=== PATIENT | female | born 1945 | race Caucasian/White ===

== ENCOUNTER 2021-06-01 09:05 | Outpatient (REF) | payer MEDICARE, OTHER, SELFPAY ==
[2021-06-01 09:43] LABS: MANUAL DIFF FLAG NO
[2021-06-01 10:06] LABS: Basophils Percent Auto 0.8 % (0-2); Eosinophils Absolute Auto 0.1 X10*3/uL (0.0-0.4); Eosinophils Percent Auto 1.7 % (0-4); Hematocrit 42.3 % (37.0-47.0); Hemoglobin 14.4 g/dl (12.0-16.0); Imm Gran Abs Auto 0.03 X10*3/uL (0.00-0.03); Imm Gran Pct Auto 0.6 % (0.0-0.4); Lymphocytes Absolute Auto 1.4 X10*3/uL (1.2-4.9); Lymphocytes Percent Auto 27.2 % (20-40); Mean Corpuscular Hemoglobin 31.6 pg (27.0-33.0); Mean Platelet Volume 9.4 fL (9.4-12.3); Monocytes Absolute Auto 0.4 X10*3/uL (0.1-1.2); Monocytes Percent Auto 7.4 % (2-11); Neutrophils Absolute Auto 3.3 x10*3/uL (2.0-8.3); Neutrophils Percent Auto 62.3 % (45-73); Platelet Count 222 X10*3/uL (160-400); Red Blood Count 4.55 X10*6/uL (4.20-5.50); Red Cell Distribution Width 12.5 % (11.0-16.0); White Blood Count 5.3 X10*3/uL (4.8-10.8)
[2021-06-01 10:37] LABS: Estimated Average Glucose 100 mg/dL; Hemoglobin A1c % 5.1 %
[2021-06-01 10:57] LABS: Alanine Aminotransferase 20 U/L (0-31); Albumin Level 4.2 g/dL (3.5-5.0); Alkaline Phosphatase 55 U/L (39-117); Anion Gap 13 (12-20); Aspartate Amino Transferase 23 U/L (5-31); Bilirubin Total 0.7 mg/dL (0.0-1.0); Blood Urea Nitrogen 13 mg/dL (9-16); Calcium 9.4 mg/dL (8.4-10.2); Carbon Dioxide 28 mmol/L (22-29); Chloride 103 mmol/L (96-108); Cholesterol 245 mg/dL; Estimated Glomerular Filt Rate > 60; Glucose Fasting 106 mg/dL (60-99); HDL Cholesterol 75 mg/dL; LDL Cholesterol Calculated 157 mg/dl; Potassium 3.9 mmol/L (3.3-5.1); Sodium 140 mmol/L (135-145); Total Protein 6.3 g/dL (6.5-8.0); Triglycerides 68 mg/dL
[2021-06-01 11:02] LABS: Thyroid Stimulating Hormone 3.09 uIU/mL (0.32-4.0); Vitamin D 25-OH Total 36.3 ng/mL (>30)
[2021-06-01 11:06] LABS: Appearance Urine HAZY; Color Urine YELLOW; Glucose Urine UA NEG (NEG); Leukocyte Esterase Urine 1+ (NEG); Nitrite Urine NEG (NEG); Specific Gravity - Urine 1.025 (1.005-1.025); Urine Blood NEG (NEG); Urine Ketones NEG (NEG); Urine Protein NEG (NEG-TRACE)
[2021-06-01 11:22] LABS: Bacteria Urine 1+ /LPF; Mucus Urine 2+ /LPF; RBC Urine 0-2 /HPF (0); Squamous Epithelial Cell Urine 2+ /LPF
[2021-06-01 11:23] LABS: Calcium Oxalate Crystals Urine TRACE /LPF
== END 2021-06-01 09:06 | disposition home or self-care (01) ==
LOC: HO.LAB 09:05
PROVIDERS: PCP Internal Medicine; Visit Provider Internal Medicine
DX: E78.00 Pure hypercholesterolemia, unspecified (principal); F51.04 Psychophysiologic insomnia; F41.9 Anxiety disorder, unspecified
CPT/HCPCS: 36415; 80053; 80061; 81001; 81003; 82306; 83036; 84443; 85025

== ENCOUNTER 2021-08-25 11:39 | Outpatient (REF) | payer MEDICARE, OTHER, SELFPAY ==
[2021-08-25 13:57] LABS: Amylase 42 U/L (28-100); Lipase 43 U/L (8-78)
[2021-08-29 08:56] LABS: Carbohydrate Antigen 19-9 4 U/mL (<34)
== END 2021-08-25 11:40 | disposition home or self-care (01) ==
LOC: HO.LAB 11:39
PROVIDERS: PCP Internal Medicine; Visit Provider Internal Medicine
DX: D49.0 Neoplasm of unspecified behavior of digestive system (principal)
CPT/HCPCS: 36415; 82150; 83690; 86301

== ENCOUNTER 2021-08-28 07:24 | Day surgery (SDC) | payer MEDICARE, OTHER, SELFPAY ==
[2021-08-22 13:55] VITALS: BMI 20.5
--- NOTE | 2021-08-25 09:37 | P.CONAN_ITS ---
Documented by User: Mouna Muniz NP 08/25/21 09:38 HPI - Anesthesia Eval Consult details Narrative: 76yo F for Upper Endoscopy and Colonoscopy FOR[facility]LY [facility] Past Medical History Medical History (Updated 08/22/21 @ 13:48 by Tawny Meade, [place]) Anxiety C. difficile enteritis Elevated cholesterol GERD (gastroesophageal reflux disease) Hiatal hernia Sigmoid diverticulitis Surgical History Surgical History (Updated 08/22/21 @ 13:51 by Tawny Meade RN) H/O colonoscopy History of back surgery History of esophagogastroduodenoscopy (EGD) History of tonsillectomy and adenoidectomy Hx of appendectomy Hx of tubal ligation Social History Social History (Updated 08/22/21 @ 13:54 by Tawny Meade RN) Patient Tobacco Use Status: Former Tobacco user Use of substances other than those prescribed or required for medical reasons: Yes Substance Use Frequency: Daily Are you DNR?: No Advance Directives: No Advance Directives Information Provided: Yes Meds Allergies Allergy/AdvReac Type Severity Reaction Status Date / Time Penicillins Allergy Intermediate HIVES Verified 08/22/21 13:49 Home Medications Medication Instructions Recorded Confirmed Last Taken Type cetirizine 10 mg tablet (Zyrtec) 10 mg PO DAILY 08/22/21 08/22/21 Unknown History citalopram 20 mg tablet 1 tab PO DAILY 08/22/21 08/22/21 08/28/21 History omeprazole 20 mg capsule,delayed 1 cap PO DAILY 08/22/21 08/22/21 Unknown History release Exam Exam Date and Time: August 25, 2021 0937 Height,Weight and Vital Signs: Height 5 ft 4 in Weight 54.34 kg Pertinent Lab Results Pertinent Lab Results: Laboratory Tests 06/01/21 06/01/21 09:35 09:35 WBC 5.3 Hgb 14.4 Hct 42.3 Plt Count 222 Sodium 140 Potassium 3.9 Chloride 103 Carbon Dioxide 28 BUN 13 Creatinine 0.74 Assessment and Plan Assessment Anesthesia Assessment: Chart Reviewed Documented by User: Christopher Heath MD 08/28/21 16:53 PMFSH Past Medical History Medical History (Updated 08/22/21 @ 13:48 by Tawny Meade RN) Anxiety C. difficile enteritis Elevated cholesterol GERD (gastroesophageal reflux disease) Hiatal hernia Sigmoid diverticulitis Family History Family history of problems with anesthesia: No Surgical History Surgical History (Updated 08/22/21 @ 13:51 by Tawny Meade RN) H/O colonoscopy History of back surgery History of esophagogastroduodenoscopy (EGD) History of tonsillectomy and adenoidectomy Hx of appendectomy Hx of tubal ligation History of Problems with Anesthesia: Yes (PONV) Social History Social History (Updated 08/22/21 @ 13:54 by Tawny Meade RN) Patient Tobacco Use Status: Former Tobacco user Use of substances other than those prescribed or required for medical reasons: Yes Substance Use Frequency: Daily Are you DNR?: No Advance Directives: No Advance Directives Information Provided: Yes Meds Allergies Allergy/AdvReac Type Severity Reaction Status Date / Time Penicillins Allergy Intermediate HIVES Verified 08/22/21 13:49 Home Medications Medication Instructions Recorded Confirmed Last Taken Type cetirizine 10 mg tablet (Zyrtec) 10 mg PO DAILY 08/22/21 08/22/21 Unknown History citalopram 20 mg tablet 1 tab PO DAILY 08/22/21 08/22/21 08/28/21 History omeprazole 20 mg capsule,delayed 1 cap PO DAILY 08/22/21 08/22/21 Unknown History release Exam Airway Mallampati Class: II TM Dist: >3cm Neck ROM: Full Loose/Missing/Broken Teeth: Yes (Fillings ) Heart: S1,S2 Lungs: b/l breath sounds Assessment and Plan Assessment Anesthesia Assessment: Anesthesia Plan Discussed Final Anesthetic Review Family History of Problems with Anesthesia: No History of Problems with Anesthesia: Yes (PONV) NPO: Yes ASA Class: II Final Preanesthetic Review: Meds/Allgs Chart Reviewed, Consent Obtained/Reviewed and Anes Risks/Benef Reviewed Patient Risk: Intermediate Procedure Risk: Intermediate Anesthetic Plan Anesthetic Plan: MAC: Disposition: Standard PACU
[2021-08-28 07:44] VITALS: BP 112/57; PULSE 60; RESP 16; TEMP 37.1; O2SAT 98
[2021-08-28] MEDS: Lactated Ringers 1,000 ML 100 ML IVCONT (08:08)
[2021-08-28 09:40] VITALS: BP 92/41; PULSE 62; RESP 16; TEMP 36.6; O2SAT 97
--- NOTE | 2021-08-28 09:45 | P.BOP_ITS ---
Brief Operative Note Date of Service: 08/28/21 Pre-op diagnosis: GERD, Screening Post-op diagnosis: other (Hiatal hernia, Polyps) Procedure: EGD with biopsies, Colonoscopy to the cecum and TI with hot snare polypectomy x 2 and bx/removal of polyps. Surgeon: Dank Murray Anesthesia: MAC Was an Electric Track Switch Maintainer used for this Procedure?: No Estimated blood loss (mL): 2.0 Pathology: other (A. EG Junction at 38cm B. Cecal polyp C. Ascending colon polyp D. Transverse colon polyp E. Polyp at 50cm) Condition: stable Disposition: PACU
[2021-08-28 09:55] VITALS: BP 140/68; PULSE 60; RESP 16; TEMP 36.6; O2SAT 97
[2021-08-28 10:10] VITALS: BP 136/55; PULSE 56; RESP 16; TEMP 36.6; O2SAT 99
--- NOTE | 2021-08-28 20:43 | OP_ITS ---
SURGEON: Dank Murray MD INDICATIONS: The patient presents for evaluation of gastroesophageal reflux, family history of colon cancer, personal history of tubular adenoma of the colon, and colorectal cancer screening. Full consent was obtained from her for this, including risks of bleeding and perforation. PREOPERATIVE DIAGNOSIS: POSTOPERATIVE DIAGNOSIS: PROCEDURE PERFORMED: Esophagogastroduodenoscopy with biopsies, and colonoscopy to the cecum and terminal ileum with hot snare polypectomy and biopsy and removal of polyps. ESTIMATED BLOOD LOSS: COMPLICATIONS: ANESTHESIA: Monitored anesthesia care. ASSISTANTS: SPECIMENS: PREOPERATIVE DIAGNOSES: 1. Personal history of tubular adenomas of the colon. 2. Colorectal cancer screening. 3. Family history of colon cancer. 4. Gastroesophageal reflux. POSTOPERATIVE DIAGNOSES: 1. Personal history of tubular adenomas of the colon. 2. Colorectal cancer screening. 3. Family history of colon cancer. 4. Gastroesophageal reflux. 5. Small hiatal hernia. 6. Colon polyps. 7. Diverticulosis. 8. Internal hemorrhoids. DESCRIPTION OF PROCEDURE: The patient was placed in the left lateral decubitus position. The Olympus video gastroscope was passed in the posterior oropharynx and upper esophagus under direct vision. The scope was passed slowly to the distal esophagus. The gastroesophageal junction appeared at 38 cm. There was some very minimal irregularity, but no evidence of esophagitis nor any definitive evidence of Marr mucosa. The scope entered the stomach where there was a relatively minimal hiatal hernia. The scope was advanced to the pylorus and the duodenum was cannulated. The descending portion of the duodenum including the bulb appeared normal without mass or ulceration. The scope was withdrawn back in the stomach. The gastric antrum and body appeared normal with good peristalsis. Scope was retroflexed visualizing the proximal stomach carefully, which appeared normal, without any sign of mass or ulceration. The scope was straightened and withdrawn back to the esophagus. Biopsies were obtained at the EG junction at 38 cm. Proximal to this, the esophageal mucosa appeared normal. The scope was withdrawn from the patient. She was turned around for the colonoscopy. The digital rectal exam revealed no abnormalities. The Olympus pediatric video colonoscope was entered into the rectum and advanced to the cecum. Advancement to the cecum was somewhat difficult. Once in the cecum, I did identify cecal pouch with appendiceal orifice and a normal-appearing ileocecal valve. The terminal ileum was cannulated and appeared normal. Scope was withdrawn back in the colon. The entire cecum was well visualized. In the cecum was approximately 8 mm polyp, which was removed by hot snare polypectomy, recovered by suction. The polypectomy site appeared clean, without any sign of residual polyp nor bleeding. The scope was then slowly withdrawn assessing all mucosal surfaces carefully. Preparation was excellent. In the ascending colon and transverse colon were flat, approximately 3 or 4 mm polyps, which were each biopsied and removed completely with cold biopsy forceps. At 50 cm was an approximately 8 mm polyp, which was removed by hot snare polypectomy and recovered by suction. The polypectomy site appeared clean, without any sign of residual polyp nor bleeding. I did not visualize any other polyps, colitis, or angiodysplasia. There was a moderate amount of diverticulosis in the sigmoid colon and a mild amount of diverticulosis in the descending and transverse colon. There was no sign of any colitis nor angiodysplasia. In the rectum, scope was retroflexed visualizing internal hemorrhoids, but no other pathology. The rectal mucosa appeared normal. Scope was straightened and withdrawn from the patient. She tolerated both procedures well and was returned to the recovery area in stable condition. IMPRESSION: 1. Minimal hiatal hernia, gastroesophageal reflux. 2. Colon polyps. 3. Diverticulosis. 4. Internal hemorrhoids. PLAN: The results of the pathology will be checked. I would recommend a repeat colonoscopy in 5 years. She was advised not to use any aspirin or NSAIDs for 1 week. She will continue her daily omeprazole for relief of her reflux. 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 She will otherwise see me on a p.r.n. basis. MD TAN Bauman/GRISEL / [id number] DAYSI
== END 2021-08-28 10:44 | disposition home or self-care (01) ==
PROVIDERS: PCP Internal Medicine; Visit Provider Internal Medicine
PROC: (CPT 45385; principal; 2021-08-28 08:30)
DX: Z12.11 Encounter for screening for malignant neoplasm of colon (principal); Z86.010 Personal history of colon polyps; Z80.0 Family history of malignant neoplasm of digestive organs; D12.0 Benign neoplasm of cecum; D12.2 Benign neoplasm of ascending colon; D12.3 Benign neoplasm of transverse colon; D12.5 Benign neoplasm of sigmoid colon; K57.30 Diverticulosis of large intestine without perforation or abscess without bleeding; K64.8 Other hemorrhoids; K21.9 Gastro-esophageal reflux disease without esophagitis; K44.9 Diaphragmatic hernia without obstruction or gangrene; D49.0 Neoplasm of unspecified behavior of digestive system; K86.2 Cyst of pancreas; F41.1 Generalized anxiety disorder; E78.5 Hyperlipidemia, unspecified; Z87.19 Personal history of other diseases of the digestive system; Z79.899 Other long term (current) drug therapy
CPT/HCPCS: 45385; 45380; 43239; 88305; J3010

== ENCOUNTER 2022-01-16 13:40 | Outpatient (REF) | payer MEDICARE, OTHER, SELFPAY ==
--- NOTE | ~2022-01-16 | XR_ITS ---
EXAMINATION: XR HIP, RIGHT CLINICAL INFORMATION: Right hip pain. COMPARISON: None TECHNIQUE: Two views of the right hip. FINDINGS: There is generalized osteopenia. Mild right hip degenerative joint changes are seen. There is no acute fracture or dislocation. The right hemipelvis is intact. The soft tissues are unremarkable. XR/XR hip RT min 2V IMPRESSION: Generalized osteopenia and mild right hip osteoarthritis. No acute abnormality.
== END 2022-01-16 13:41 | disposition home or self-care (01) ==
LOC: HO.XRAY 13:40
PROVIDERS: PCP Internal Medicine; Visit Provider Internal Medicine
DX: M25.551 Pain in right hip (principal)
CPT/HCPCS: 73502

== ENCOUNTER 2022-03-23 13:48 | Outpatient (REF) | payer MEDICARE, OTHER, SELFPAY ==
--- NOTE | ~2022-03-23 | XR_ITS ---
EXAMINATION: XR CHEST CLINICAL INFORMATION: Palpitations COMPARISON: None TECHNIQUE: 2 views of the chest were obtained. FINDINGS: No significant abnormality is noted involving the heart, lungs, mediastinum, bony thorax or soft tissues. XR/XR chest 2V IMPRESSION: Unremarkable chest examination.
--- NOTE | 2022-03-23 13:55 | ECG_ITS ---
Test Reason : R00.2 Blood Pressure : / mmHG Vent. Rate : 065 BPM Atrial Rate : 065 BPM P-R Int : 198 ms QRS Dur : 070 ms QT Int : 418 ms P-R-T Axes : 060 -11 070 degrees QTc Int : 434 ms Normal sinus rhythm Normal ECG When compared with ECG of 23-MAR-2006 08:23, No significant changes seen Referred By: Dank Brown Electronically Signed By:LAINA RODRIGUEZ
[2022-03-23 14:02] LABS: MANUAL DIFF FLAG NO
[2022-03-23 14:32] LABS: Basophils Percent Auto 0.3 % (0-2); Eosinophils Absolute Auto 0.2 X10*3/uL (0.0-0.4); Eosinophils Percent Auto 1.8 % (0-4); Hematocrit 43.4 % (37.0-47.0); Hemoglobin 14.8 g/dl (12.0-16.0); Imm Gran Abs Auto 0.02 X10*3/uL (0.00-0.03); Imm Gran Pct Auto 0.2 % (0.0-0.4); Lymphocytes Absolute Auto 1.8 X10*3/uL (1.2-4.9); Lymphocytes Percent Auto 20.5 % (20-40); Mean Corpuscular HGB Conc 34.1 g/dl (31.0-35.0); Mean Corpuscular Hemoglobin 31.3 pg (27.0-33.0); Mean Corpuscular Volume 91.8 fL (80.0-98.0); Mean Platelet Volume 9.4 fL (9.4-12.3); Monocytes Absolute Auto 0.7 X10*3/uL (0.1-1.2); Monocytes Percent Auto 7.9 % (2-11); Neutrophils Absolute Auto 6.2 x10*3/uL (2.0-8.3); Neutrophils Percent Auto 69.3 % (45-73); Platelet Count 232 X10*3/uL (160-400); Red Blood Count 4.73 X10*6/uL (4.20-5.50); Red Cell Distribution Width 12.6 % (11.0-16.0); White Blood Count 8.9 X10*3/uL (4.8-10.8)
[2022-03-23 14:49] LABS: Appearance Urine Clear; Color Urine Yellow; Glucose Urine UA Negative (Negative); Leukocyte Esterase Urine Negative (Negative); Nitrite Urine Negative (Negative); PH 6.5 (5.0-9.0); Specific Gravity - Urine <= 1.005 (1.005-1.025); Urine Blood Negative (Negative); Urine Ketones Negative (Negative); Urine Protein Negative (Neg-Trace)
[2022-03-23 14:53] LABS: Bacteria Urine None Seen (None Seen); Hyaline Casts Urine 0-2 /LPF (0-2); RBC Urine 0-2 /HPF (0-2); Squamous Epithelial Cell Urine 0-2 /HPF (0-2); WBC Urine 0-5 /HPF (0-5)
[2022-03-23 15:02] LABS: Alanine Aminotransferase 16 U/L (0-31); Albumin Level 4.4 g/dL (3.5-5.0); Alkaline Phosphatase 60 U/L (39-117); Anion Gap 11 (12-20); Aspartate Amino Transferase 20 U/L (5-31); Bilirubin Total 0.6 mg/dL (0.0-1.0); Blood Urea Nitrogen 13 mg/dL (9-16); Calcium 9.4 mg/dL (8.4-10.2); Carbon Dioxide 29 mmol/L (22-29); Chloride 104 mmol/L (96-108); Estimated Glomerular Filt Rate > 60; Glucose Random 83 mg/dL (60-115); Potassium 4.3 mmol/L (3.3-5.1); Sodium 140 mmol/L (135-145); Total Protein 6.8 g/dL (6.5-8.0)
[2022-03-23 15:18] LABS: Thyroid Stimulating Hormone 2.33 uIU/mL (0.32-4.0)
== END 2022-03-23 13:49 | disposition home or self-care (01) ==
LOC: HO.XRAY 13:48
PROVIDERS: PCP Internal Medicine; Visit Provider Internal Medicine
DX: R00.2 Palpitations (principal)
CPT/HCPCS: 36415; 71046; 80053; 81001; 84443; 85025; 93005

== ENCOUNTER → 2022-05-23 14:01 | Outpatient (REF) | payer MEDICARE, OTHER, SELFPAY ==
--- NOTE | 2022-05-23 14:08 | CA_ITS ---
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 The calculated ejection fraction is 59% by biplane method. - There is mild calcification of the aortic valve. - There is mild aortic valve regurgitation. - There is mild anterior mitral leaflet thickening. - No obvious valvular pathology seen on this study. Findings Left Ventricle Normal left ventricular cavity size. There is normal left ventricular wall thickness. The left ventricular systolic function is normal. The calculated ejection fraction is 59% by biplane method. There is no evidence of regional wall motion abnormalities. Evidence suggests grade I (mild) diastolic dysfunction. LV peak GLS -20.4%. Right Ventricle Normal right ventricular cavity size and systolic function. Atria Both atria are normal in size. Aortic Valve There is a normal trileaflet aortic valve. There is mild calcification of the aortic valve. There is no aortic valve stenosis. There is mild aortic valve regurgitation. Mitral Valve There is mild anterior mitral leaflet thickening. There is trace mitral valve regurgitation. There is no mitral valve stenosis. Pulmonic Valve The pulmonic valve is likely normal. Tricuspid Valve Normal tricuspid valve structure. There is trace tricuspid valve regurgitation. There is no evidence of pulmonary hypertension. Great Vessels The aorta was not well visualized. Venous The inferior vena cava is normal in size and collapses greater than 50% with inspiration. Pericardium/Pleural There is no evidence of pericardial effusion. Prior Study Comparison No significant change compared to prior study dated: 01/01/2005. Recommendations, Care & Conclusions No obvious valvular pathology seen on this study. Measurements 2D Linear Measurements IVSd: 0.98 0.6-0.9/0.6-1.0 cm LVIDd: 4.06 3.9-5.3/4.2-5.9 cm LVIDd Index: 2.60 2.4-3.2/2.2-3.1 cm/m2 LVIDs: 2.96 2.0-3.6 cm LVPWd: 0.64 0.7-1.1 cm LA Diam: 2.80 2.7-3.8/3.0-4.0 cm LAIDs Index: 1.79 1.5-2.3 cm/m2 LV Mass: 120.58 67-162/88-224 g LV Mass Index: 77.29 43-95/49-115 g/m2 LVOT Diam: 1.90 3.0+(-)1.3 cm 2D Systolic Function EF 4C: 58.40 >55% EF 2C: 60.80 >55% EF BiP: 58.60 >55% Mitral Valve MV Pk E: 0.51 MV PK A: 0.73 MV Decel Time: 304.00 E/A: 0.70 E'Lateral: 8.27 E'Medial: 5.33 E/E' Med: 9.60 E/E' Lat: 6.20 PHT: 89.00 MVA PHT: 2.47 Decel Ida: 1.68 Aortic Valve AoV Pk Lito: 1.42 AoV Mn Lito: 1.07 AoV VTI: 0.33 AoV Pk Grad: 8.00 Aov Mn Grad: 5.00 ANNA Cont.VTI: 2.28 AI Pk Lito: 4.94 AI Ida: 2.60 LVOT LVOT Pk Lito: 1.14 LVOT Mn Lito: 0.73 LVOT VTI: 0.26 LVOT Pk Grad: 5.00 LVOT Mn Grad: 3.00 LVOT Diam: 1.90 LVOT Area: 2.84 Diastolic Function MV Pk E: 0.51 MV Pk A: 0.73 E/A: 0.70 E'Medial: 5.33 E/E' Med: 9.60 E' Laterial: 8.27 E/E' Lat: 6.20 Right Ventricle TAPSE (mm): 25.70 TVS' Lito: 11.40 Tricuspid Valve TR Pk Lito: 2.14 TR Pk Grad: 18.00 RA Press: 3.00 RVSP: 21.00 Great Vessels Aorta Sinus of Valsalva: 3.67 2.0-3.5 cm Updated in Other Vendor System with Status of Final Jean-Claude Santos MD electronically signed on 05/25/2022 12:04:53 PM with status of Final
== END ==
LOC: HO.CARD 14:01
PROVIDERS: Visit Provider Internal Medicine Cardiovascular Disease
DX: R07.89 Other chest pain (principal)
CPT/HCPCS: 93306; 93356

== ENCOUNTER → 2022-05-30 15:15 | Outpatient (BNVA) | payer MEDICARE, OTHER, SELFPAY | PROVIDERS: PCP Internal Medicine; Visit Provider Internal Medicine | DX: R04.2 Hemoptysis (principal); U09.9 Post COVID-19 condition, unspecified; F17.210 Nicotine dependence, cigarettes, uncomplicated | CPT/HCPCS: 99212 ==

== ENCOUNTER 2022-06-06 13:53 | Outpatient (REF) | payer MEDICARE, OTHER, SELFPAY ==
--- NOTE | ~2022-06-06 | CT_ITS ---
EXAMINATION: CT CHEST WITHOUT CONTRAST CLINICAL INFORMATION: Hemoptysis COMPARISON: 05/07/2018 TECHNIQUE: Multidetector volumetric CT imaging of the chest was done. Axial MIP volume rendering provided. Sagittal and coronal reformatted images were obtained. This CT examination was performed using dose optimization techniques as appropriate, variously including the following: *Automated exposure control *Adjustment of mA and/or kV according to patient size (this includes techniques or standardized protocols for targeted exams where dose is matched to indication/reason for exam; i.e. extremities or head) *Use of iterative reconstruction technique DLP: 173 FINDINGS: LUNGS: Mild to moderate background parenchymal emphysema. Mild scarring of the right middle lobe, similar to prior study. No new or enlarging pulmonary nodule. Central airways are patent. MEDIASTINUM: No mediastinal adenopathy. 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 Lack of IV contrast with evaluation for hilar adenopathy. There is a possible esophageal diverticulum measuring 1.6 x 1.0 cm. PLEURA: There is no pleural effusion. No pleural mass or thickening. AXILLA: No lymphadenopathy. UPPER ABDOMEN: Partially visualized parapelvic cysts versus hydronephrosis of the right kidney, unchanged from prior study, measuring up to 6.3 cm. Given chronicity, this is favored to reflect a parapelvic cyst although evaluation is incomplete on this study. OSSEOUS STRUCTURES/SOFT TISSUES: Degenerative changes of the spine. CT/CT chest wo IV con IMPRESSION: 1. Mild to moderate background parenchymal emphysema. No new or enlarging pulmonary nodule. 2. 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 3. Partially visualized parapelvic cysts versus hydronephrosis of the right kidney, unchanged from prior study, measuring up to 6.3 cm. Given chronicity, this is favored to reflect a parapelvic cyst although evaluation is incomplete on this study. 4. There is a possible esophageal diverticulum measuring 1.6 x 1.0 cm.
== END 2022-06-06 13:54 | disposition home or self-care (01) ==
LOC: HO.CT 13:53
PROVIDERS: Visit Provider Internal Medicine
DX: R04.2 Hemoptysis (principal)
CPT/HCPCS: 71250

== ENCOUNTER 2022-06-19 09:51 | Outpatient (REF) | payer MEDICARE, OTHER, SELFPAY ==
--- NOTE | 2022-06-19 11:55 | PFT_ITS ---
FLOWS: 1. FEV1 of 110% of predicted at 2.22 L. 2. FVC 109% of predicted at 2.94 L. 3. FEV1 to FVC ratio of 0.76. 4. No bronchodilator response. LUNG VOLUMES: 1. Total lung capacity 105% of predicted at 5.17 L. 2. Residual volume 94% of predicted at 2.11 L. 3. Slow vital capacity 115% of predicted at 3.07 L. 4. Expiratory reserve volume 133% of predicted at 0.76 L. 5. Diffusion capacity is mildly decreased. IMPRESSION: No obstructive or restrictive ventilatory defect. No bronchodilator response. Decreased diffusion capacity suggests emphysema. Tex Brady MD AP/MODL / [id number]
== END 2022-06-19 09:52 | disposition home or self-care (01) ==
LOC: HO.RESP 09:51
PROVIDERS: PCP Internal Medicine; Visit Provider Internal Medicine
DX: R05.9 Cough, unspecified (principal); R04.2 Hemoptysis; F17.210 Nicotine dependence, cigarettes, uncomplicated
CPT/HCPCS: 94060; 94727; 94729

== ENCOUNTER → 2022-07-17 10:29 | Outpatient (BNVA) | payer MEDICARE, OTHER, SELFPAY | PROVIDERS: PCP Internal Medicine; Visit Provider Internal Medicine | DX: R05.9 Cough, unspecified (principal); R04.2 Hemoptysis; U09.9 Post COVID-19 condition, unspecified; Z87.891 Personal history of nicotine dependence | CPT/HCPCS: 99212 ==

== ENCOUNTER 2022-11-02 14:48 | Outpatient (REF) | payer MEDICARE, OTHER, SELFPAY ==
[2022-11-02 15:02] LABS: MANUAL DIFF FLAG NO
[2022-11-02 15:24] LABS: Basophils Percent Auto 0.3 % (0-2); Eosinophils Absolute Auto 0.1 X10*3/uL (0.0-0.4); Eosinophils Percent Auto 1.8 % (0-4); Hematocrit 40.7 % (37.0-47.0); Hemoglobin 14.4 g/dl (12.0-16.0); Imm Gran Abs Auto 0.01 X10*3/uL (0.00-0.03); Imm Gran Pct Auto 0.2 % (0.0-0.4); Lymphocytes Absolute Auto 2.1 X10*3/uL (1.2-4.9); Lymphocytes Percent Auto 31.6 % (20-40); Mean Corpuscular HGB Conc 35.4 g/dl (31.0-35.0); Mean Corpuscular Hemoglobin 31.6 pg (27.0-33.0); Mean Corpuscular Volume 89.5 fL (80.0-98.0); Monocytes Absolute Auto 0.5 X10*3/uL (0.1-1.2); Monocytes Percent Auto 7.5 % (2-11); Neutrophils Absolute Auto 3.9 x10*3/uL (2.0-8.3); Neutrophils Percent Auto 58.6 % (45-73); Platelet Count 250 X10*3/uL (160-400); Red Blood Count 4.55 X10*6/uL (4.20-5.50); Red Cell Distribution Width 12.7 % (11.0-16.0); White Blood Count 6.6 X10*3/uL (4.8-10.8)
[2022-11-02 16:17] LABS: Erythrocyte Sedimentation Rate 5 MM/HR (0-20)
[2022-11-02 16:24] LABS: Blood Urea Nitrogen 16 mg/dL (9-16); Estimated Glomerular Filt Rate > 60
[2022-11-02 16:41] LABS: Alanine Aminotransferase 17 U/L (0-31); Albumin Level 4.1 g/dL (3.5-5.0); Alkaline Phosphatase 58 U/L (39-117); Anion Gap 13 (12-20); Aspartate Amino Transferase 24 U/L (5-31); Bilirubin Total 0.7 mg/dL (0.0-1.0); Blood Urea Nitrogen 16 mg/dL (9-16); C Reactive Protein 0.11 mg/dL (< or = 0.50); Calcium 9.3 mg/dL (8.4-10.2); Carbon Dioxide 26 mmol/L (22-29); Chloride 104 mmol/L (96-108); Estimated Glomerular Filt Rate > 60; Glucose Random 86 mg/dL (60-115); Potassium 3.8 mmol/L (3.3-5.1); Sodium 139 mmol/L (135-145); Total Protein 6.9 g/dL (6.5-8.0)
[2022-11-02 16:45] LABS: Thyroid Stimulating Hormone 1.32 uIU/mL (0.32-4.0)
[2022-11-03 08:59] LABS: Carbohydrate Antigen 19-9 4 U/mL (<34)
[2022-11-06 00:49] LABS: Lyme Abs Screen <0.90 index
== END 2022-11-02 14:49 | disposition home or self-care (01) ==
LOC: HO.LAB 14:48
PROVIDERS: Internal Medicine; PCP Internal Medicine; Visit Provider Internal Medicine
DX: D49.0 Neoplasm of unspecified behavior of digestive system (principal); R53.83 Other fatigue; R51.9 Headache, unspecified
CPT/HCPCS: 36415; 80053; 82565; 84443; 84520; 85025; 85652; 86140; 86301; 86617; 86618

== ENCOUNTER 2022-11-30 14:15 | Outpatient (REF) | payer MEDICARE, OTHER, SELFPAY ==
--- NOTE | ~2022-11-30 | MR_ITS ---
EXAMINATION: MR ABDOMEN WITHOUT AND WITH CONTRAST CLINICAL INFORMATION: Pancreatic lesion. COMPARISON: None available. TECHNIQUE: MR abdomen was performed without and with use of 5.5 mL intravenous Gadavist gadolinium contrast. Postcontrast images are performed in multiphase dynamic sequences. Imaging was performed in 3 planes. FINDINGS: LUNG BASES: The visualized lung bases are unremarkable. LIVER, GALLBLADDER, AND BILIARY TREE: There is some degree of signal loss in the out of phase dual echo images most suggestive of hepatic steatosis. Otherwise, the liver is normal in size and shape without focal lesion. The gallbladder is unremarkable with no evidence of gallbladder wall thickening, or obvious pericholecystic inflammatory changes. No biliary ductal dilatation. PANCREAS: There is a 1 cm T2 bright cystic-appearing lesion along the posterior surface of the distal pancreatic body with communication with the main pancreatic duct on coronal MRCP image 17 series 10. On postcontrast images there is no suspicious enhancement. There is an additional smaller 0.5 cm T2 bright cystic-appearing lesion in the pancreatic tail (image 20, series 5) in close proximity with the main duct with possible connection. On postcontrast images there is no suspicious enhancement. The main pancreatic duct is nondilated. No peripancreatic free fluid or fat stranding. SPLEEN: Normal. ADRENAL GLANDS: Normal. KIDNEYS AND URETERS: The kidneys are normal in size, shape, and enhance symmetrically. There is a large 7.3 x 6.3 x 10 cm homogeneously T2 bright/precontrast T1 dark avascular cyst along the medial right kidney without septations, measurable enhancement nor solid nodules; Bosniak 1, for which no imaging followup is recommended. No hydronephrosis. No perinephric stranding. GASTROINTESTINAL TRACT: Colonic diverticulosis without significant pericolonic fat stranding or free fluid. No bowel obstruction. ABDOMINAL WALL: No significant hernia is appreciated. LYMPH NODES: No lymphadenopathy. VASCULAR: Normal caliber abdominal aorta. OSSEOUS STRUCTURES: No acute or aggressive appearing osseous abnormalities. MR/MR abdomen wo/w con IMPRESSION: 1. There is a 1 cm cystic-appearing lesion along the posterior surface of the distal pancreatic body with communication with the main pancreatic duct. There is an additional 0.5 cm cystic appearing lesion in the pancreatic tail with possible connection to the main pancreatic duct. No main ductal dilatation. No suspicious associated enhancement. These could represent side branch IPMNs. Recommend followup MRI/MRCP in 12 months to assess stability. 2. Hepatic steatosis. 3. 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
[2022-11-30] MEDS: gadobutroL 7.5 ML VIAL IVPUSH (15:39)
== END 2022-11-30 14:16 | disposition home or self-care (01) ==
LOC: HO.MRI 14:15
PROVIDERS: PCP Internal Medicine; Visit Provider Internal Medicine
DX: D49.0 Neoplasm of unspecified behavior of digestive system (principal)
CPT/HCPCS: 74183; A9585

== ENCOUNTER 2023-02-21 09:34 | Outpatient (REF) | payer MEDICARE, OTHER, SELFPAY ==
[2023-02-21 10:03] LABS: MANUAL DIFF FLAG NO
[2023-02-21 10:30] LABS: Basophils Percent Auto 0.9 % (0-2); Eosinophils Absolute Auto 0.1 X10*3/uL (0.0-0.4); Eosinophils Percent Auto 2.9 % (0-4); Hematocrit 40.3 % (37.0-47.0); Hemoglobin 13.9 g/dl (12.0-16.0); Imm Gran Abs Auto 0.01 X10*3/uL (0.00-0.03); Imm Gran Pct Auto 0.2 % (0.0-0.4); Lymphocytes Absolute Auto 1.3 X10*3/uL (1.2-4.9); Lymphocytes Percent Auto 29.6 % (20-40); Mean Corpuscular HGB Conc 34.5 g/dl (31.0-35.0); Mean Corpuscular Hemoglobin 31.7 pg (27.0-33.0); Mean Platelet Volume 9.2 fL (9.4-12.3); Monocytes Absolute Auto 0.4 X10*3/uL (0.1-1.2); Monocytes Percent Auto 8.2 % (2-11); Neutrophils Absolute Auto 2.6 x10*3/uL (2.0-8.3); Neutrophils Percent Auto 58.2 % (45-73); Platelet Count 228 X10*3/uL (160-400); Red Blood Count 4.38 X10*6/uL (4.20-5.50); Red Cell Distribution Width 12.3 % (11.0-16.0); White Blood Count 4.5 X10*3/uL (4.8-10.8)
[2023-02-21 11:06] LABS: Alanine Aminotransferase 21 U/L (0-31); Albumin Level 3.9 g/dL (3.5-5.0); Alkaline Phosphatase 55 U/L (39-117); Anion Gap 10 (12-20); Aspartate Amino Transferase 25 U/L (5-31); Bilirubin Total 0.8 mg/dL (0.0-1.0); Blood Urea Nitrogen 15 mg/dL (9-16); Calcium 8.9 mg/dL (8.4-10.2); Carbon Dioxide 29 mmol/L (22-29); Chloride 105 mmol/L (96-108); Cholesterol 195 mg/dL (<200); Estimated Glomerular Filt Rate > 60; Glucose Fasting 111 mg/dL (60-99); HDL Cholesterol 77 mg/dL (>40); LDL Cholesterol Calculated 106 mg/dL (<100); Potassium 4.2 mmol/L (3.3-5.1); Sodium 140 mmol/L (135-145); Total Protein 6.5 g/dL (6.5-8.0); Triglycerides 64 mg/dL (<150)
[2023-02-21 11:25] LABS: Thyroid Stimulating Hormone 2.45 uIU/mL (0.32-4.0)
== END 2023-02-21 09:35 | disposition home or self-care (01) ==
LOC: HO.LAB 09:34
PROVIDERS: PCP Internal Medicine; Visit Provider Internal Medicine
DX: F41.9 Anxiety disorder, unspecified (principal); E78.00 Pure hypercholesterolemia, unspecified
CPT/HCPCS: 36415; 80053; 80061; 84443; 85025

== ENCOUNTER 2023-07-23 10:57 | Outpatient (AMB) | payer MEDICARE, OTHER, SELFPAY ==
--- NOTE | 2023-07-23 11:07 | MHC.OFFVIS ---
Vital Signs 07/23/23 11:08 Height 5 ft 3 in Weight 124 lb BMI 22.0 BP 110/72 Blood Pressure Location Lt brachial Position Sitting Pulse 57 Pulse Source Pulse Oximeter Pulse Oximetry (%) 97 Oxygen Delivery Method Room Air Intake Visit Reasons: hemoptysis Intake Note: pt is here for follow up and states only some blood tinged sputum at times, not concerning. Health Data Analyst Required: No Allergies environmental allergies Allergy (Verified 07/23/23 11:41) Sneezing Medication List - Last Reconciled 07/23/23 by Claude Story MD cetirizine (Zyrtec) 10 mg PO DAILY citalopram 1 tab PO DAILY omeprazole 1 cap PO DAILY Do you need a note to return to daycare/school/sports/work: No HPI HPI hemoptysis: Details: THIS 78 YEARS OLD FEMALE, COMES FOR FOLLOW-UP AFTER 1 YEAR. HER MAIN COMPLAINT IS INTERMITTENT COUGH, SOMETIMES WITH A TINGE OF FRESH BLOOD. IT IS RELATED TO ENVIRONMENTAL ALLERGIES, AND COUGH IS MORE FREQUENT IN SPRING OR FALL. SHE HAS HAD NO SUSTAINED BOUTS OF COUGH. AND ONLY RARELY SEES A MINIMAL TINGE OF BLOOD. SHE HAS NOT USING ANY COUGH MEDICINE ON A REGULAR BASIS. SHE DOES USE ZYRTEC 10 MG ONCE A DAY P.R.N. 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 difficile enteritis Anxiety Elevated cholesterol Hiatal hernia GERD (gastroesophageal reflux disease) Surgical History Hx of appendectomy History of tonsillectomy and adenoidectomy Hx of tubal ligation History of back surgery History of esophagogastroduodenoscopy (EGD) H/O colonoscopy Social History Patient Tobacco Use Status: Former Tobacco user Review of Systems Const All systems reviewed & are unremarkable except as noted in HPI and below Eyes Reports no additional complaints ENT Reports nasal congestion (Mild off and on) Card Denies chest pain, Denies irregular heart rhythm and Denies lightheadedness Resp Reports as per HPI GI Denies heartburn (GERD symptoms controlled with omeprazole) Reports no additional complaints Musc Reports no additional complaints Skin/Breast Reports system reviewed and no additional complaints, except as documented Neuro Reports no additional complaints Psych Reports depression (Mild controlled with citalopram) Endo Reports no additional complaints Physical Exam Vital Signs: Last Vital Signs Pulse 57 07/23/23 11:08 BP 110/72 07/23/23 11:08 Pulse Ox 97 07/23/23 11:08 Oxygen Delivery Method Room Air 07/23/23 11:08 BMI result Body Mass Index 22.0 Const General: healthy appearing, comfortable, no acute distress, alert and awake Orientation/consciousness: patient oriented x3 HEENT Head: Yes normal to inspection General nose exam: No nasal polyps present, abnormal septum (DNS to left, with hypertrophy and some erythema of the septal mucosa) and No nasal discharge present Face and sinus: Yes sinuses nontender Mouth: oropharynx normal Throat: Yes posterior oropharynx normal Eyes General: appearance normal, both eyes and all related structures Neck Neck: Yes normal visual inspection, Yes no lymphadenopathy, Yes trachea midline and Yes no JVD Thyroid: Thyroid normal Chest Chest palpation & inspection: normal inspection of the chest, normal palpation of entire chest wall and no tenderness Resp Effort & Inspection: normal respiratory effort Auscultation: clear to auscultation bilaterally, no crackles and no wheezes Cardio Palpation: normal PMI Rate: regular rate Rhythm: regular rhythm Heart sounds: no gallops and no murmurs GI Palpation (GI): Soft to palpation, nontender, No hepatosplenomegaly present and no masses Auscultation: normal bowel sounds Back/Spine/Pelvis Thoracic/Lumbar Spine: thoracic and lumbar spine normal to inspection Skin General skin exam: no rashes or lesions noted Neuro General: patient oriented x3 and no focal motor deficits Cranial nerves: Yes CN's II-XII intact bilaterally Extrem General: Yes normal to inspection, Yes no clubbing, cyanosis or edema and Yes no calf tenderness Psych Appearance: grossly normal and well kempt Speech and movement: Normal speech and movement present Assessment & Plan Assessment & Plan (1) Former smoker, stopped smoking in distant past: Comment: HISTORY OF SMOKING FOR ABOUT 20 YEARS IN THE PAST BUT SHE QUIT MORE THAN [address] SCAN HAD SHOWN MILD PULMONARY EMPHYSEMA, BUT PULMONARY FUNCTION TEST WAS NORMAL. NO EVIDENCE OF ANY OBSTRUCTIVE AIRWAY DISORDER. Code(s): Z87.891 - Personal history of nicotine dependence Category: Social Hx Plan: PATIENT IS REASSURED. ADVISE THAT SHE SHOULD COME TO VISIT NEEDED. ( IF THE COUGH BECOMES FREQUENT AND PERSISTENT WITH INCREASED AMOUNT OF HEMOPTYSIS ) (2) Cough: Comment: SHE HAS MILD INTERMITTENT COUGH MOSTLY RELATED TO ENVIRONMENTAL ALLERGIES. IT IS SELF-LIMITING AND SHE HAS NOT REQUIRING TO USE ANY COUGH MEDICINE. RESOLVED AT THIS TIME. Code(s): R05.9 - Cough, unspecified Category: Medical Plan: ADVISE THAT SHE CAN USE ZYRTEC 10 MG. NEEDED TO CONTROL THE ALLERGY AND USE OTC COUGH MEDICINE SUCH ROBITUSSIN P.R.N. (3) Hemoptysis: Comment: SHE HAS HAD MINIMAL STREAKING OF BLOOD ALONG WITH COUGH, ONLY ONCE IN A WHILE. .IT DOES NOT LOST TOO LONG Code(s): R04.2 - Hemoptysis Category: Medical Plan: PATIENT REASSURED. CONTINUE TO WATCH, COME FOR FOLLOW-UP IF IT GETS ANY WORSE. Coding Level of Care Code Est Pt Level 3 (08722) Diagnoses Former smoker, stopped smoking in distant past Z87.891 Cough R05.9 Hemoptysis R04.2
[2023-07-23 11:08] VITALS: BP 110/72; PULSE 57; O2SAT 97; BMI 22.0
== END 2023-07-23 11:37 | disposition home or self-care (01) ==
PROVIDERS: PCP Internal Medicine; Visit Provider Internal Medicine
DX: Z87.891 Personal history of nicotine dependence (principal); R05.9 Cough, unspecified; R04.2 Hemoptysis
CPT/HCPCS: 99213

== ENCOUNTER → 2023-07-23 10:57 | Outpatient (BNVA) | payer MEDICARE, OTHER, SELFPAY | PROVIDERS: PCP Internal Medicine; Visit Provider Internal Medicine | DX: R04.2 Hemoptysis (principal); R05.9 Cough, unspecified; Z87.891 Personal history of nicotine dependence | CPT/HCPCS: 99212 ==

== ENCOUNTER 2023-08-23 10:55 | Emergency (ER) | payer MEDICARE, OTHER, SELFPAY ==
--- NOTE | ~2023-08-23 | XR_ITS ---
EXAMINATION: XR CHEST CLINICAL INFORMATION: Chest pain COMPARISON: Previous chest x-ray and chest CT from 2022 TECHNIQUE: 2 views of the chest were obtained. FINDINGS: The cardiac and mediastinal contours are stable. There is minimal scarring or subsegmental atelectasis in the right middle lobe. Lungs are otherwise clear. No pleural effusion or pneumothorax. Degenerative changes of the thoracic spine. XR/XR chest 2V IMPRESSION: No evidence for acute disease in the chest.
--- NOTE | 2023-08-23 10:56 | ECG_ITS ---
Test Reason : CHEST PAIN Blood Pressure : / mmHG Vent. Rate : 068 BPM Atrial Rate : 068 BPM P-R Int : 190 ms QRS Dur : 070 ms QT Int : 430 ms P-R-T Axes : 015 -17 055 degrees QTc Int : 457 ms Normal sinus rhythm Normal ECG When compared with ECG of 23-MAR-2022 14:14, No significant change was found Referred By: Generic ED Physician Electronically Signed By:KIRA WILLIS MD
[2023-08-23 11:14] VITALS: BP 153/79; PULSE 70; RESP 16; TEMP 36.4; O2SAT 100; BMI 21.6
--- NOTE | 2023-08-23 11:36 | ED.CHESTPAIN ---
HPI - Chest Pain General Chief Complaint: Chest Pain Stated Complaint: CP, sob Time Seen by Provider: 08/23/23 17:42 Source: patient Mode of arrival: ambulatory Limitations: no limitations History of Present Illness ED Provider: stephanie ESTRADA narrative: Patient's history of anxiety ex-smoker no known coronary artery disease had a stress test done last year which was normal comes here for fatigue exertional dyspnea fell lightheaded when she was walking earlier had abdominal pain and now chest pain which is spreading bilaterally symptoms going on for last 2 days Related Data Home Medications ?Medication ?Instructions ?Recorded ?Confirmed cetirizine 10 mg tablet (Zyrtec) 10 mg PO DAILY 08/22/21 08/22/21 citalopram 20 mg tablet 1 tab PO DAILY 08/22/21 08/22/21 omeprazole 20 mg capsule,delayed 1 cap PO DAILY 08/22/21 08/22/21 release Previous Rx's ?Medication ?Instructions ?Recorded albuterol sulfate 90 mcg/actuation 2 puff inhalation Q4-6H PRN 08/23/23 aerosol inhaler (ProAir HFA) shortness of breath or wheezing #8.5 grams benzonatate 200 mg capsule 200 mg PO TID PRN cough #30 caps 08/23/23 Allergies Allergy/AdvReac Type Severity Reaction Status Date / Time environmental allergies Allergy Sneezing Verified 08/23/23 11:15 Review of Systems Review of Systems: Yes all other systems are reviewed and are negative [facility] Past Medical History Attestation statement: The following information was validated with the patient. Medical History Former smoker, stopped smoking in distant past Cough Smokes less than 1 pack a day with greater than 20 pack year history Hemoptysis [id number] condition Sigmoid diverticulitis C. difficile enteritis Anxiety Elevated cholesterol Hiatal hernia GERD (gastroesophageal reflux disease) Surgical History Hx of appendectomy History of tonsillectomy and adenoidectomy Hx of tubal ligation History of back surgery History of esophagogastroduodenoscopy (EGD) H/O colonoscopy Social History Social History Alcohol intake: current Alcohol intake frequency: a few times a week Patient Tobacco Use Status: Former Tobacco user Smoked in Last 30 Days: No Use of substances other than those prescribed or required for medical reasons: Yes Substance Use Type: Marijuana Advance Directives: No Advance Directives Information Provided: No Physical Exam Vital Signs: Vital Signs: Last Vital Signs Temp 97.6 F 08/23/23 20:54 Pulse 64 08/23/23 20:54 Resp 16 08/23/23 20:54 BP 149/67 H 08/23/23 20:54 Pulse Ox 96 08/23/23 20:54 O2 Del Method Room Air 08/23/23 20:54 BMI result Body Mass Index 21.6 Appearance: Alert. Oriented X3. No acute distress. Eyes: PERRLA, No Nystagmus ENT: Pharynx normal. Oral Mucosa moist Neck: Normal inspection. Neck supple. CVS: Normal heart rate and rhythm. Pulses normal. Respiratory: No respiratory distress. Equal air entry bilateral, no wheezing/rales/rhonchi Abdomen: Soft and nontender. Bowel sounds are present, no mass palpable, no CVA tenderness Skin: Skin warm and dry. Normal skin color. Normal skin turgor. Extremities: No lower extremity edema. No calf tenderness Neuro: Oriented X 3. No motor deficit. No sensory deficit.No cerebellar signs , cranial nerves II-XII intact Course Course Course Narrative: This is an RME performed by Toney Forrest CNP: Additional HPI, ROS, PE not included below will be deferred to primary provider. Patient is a 78-year-old female who presents emergency department for evaluation of chest pain. Intermittent over the past 3 days, typically experienced during exertion and self resolves upon rest. Reports associated fatigue shortness of breath, and a near syncopal episode yesterday after walking around outdoors. Reports that she has been seen by her primary care provider, had a stress test at the end of last year which was unremarkable by her account. She received a referral to Cardiology, but does not have an appointment for another couple of months. Yesterday she thought her symptoms may be secondary to GERD and she took Gaviscon with some relief, but her symptoms began again yesterday night. PE: A%Ox3, LSCTA, no resp distress, normal heart sounds, not diaphoretic, no edema. Plan: Labs, EKG, CXR Medications Administered Discontinued Medications Generic Name Dose Route Start Last Admin Trade Name Christi PRN Reason Stop Dose Admin Albuterol Sulfate 2 puff 08/23/23 20:16 08/23/23 20:48 Albuterol Sulfate 90 Mcg 8 Gm Inhaler INHALE 08/23/23 20:17 2 puff ONCE ONE Administration Medical Decision Making Lab Data [facility] Lab Attestation statement: I reviewed the patient's lab results. 08/23/23 12:07 08/23/23 12:07 Labs: Lab Results 08/23/23 08/23/23 Range/Units 12:07 18:37 WBC 4.8 (4.8-10.8) X10*3/uL RBC 4.55 (4.20-5.50) X10*6/uL Hgb 14.7 (12.0-16.0) g/dl Hct 40.7 (37.0-47.0) % MCV 89.5 (80.0-98.0) fL MCH 32.3 (27.0-33.0) pg MCHC 36.1 H (31.0-35.0) g/dl RDW 12.5 (11.0-16.0) % Plt Count 228 (160-400) X10*3/uL MPV 9.4 (9.4-12.3) fL Immature Gran % (Auto) 0.0 (0.0-0.4) % Neut % (Auto) 53.9 (45-73) % Lymph % (Auto) 34.8 (20-40) % Kleberg % (Auto) 8.8 (2-11) % Eos % (Auto) 1.7 (0-4) % Baso % (Auto) 0.8 (0-2) % Lymph # (Auto) 1.7 (1.2-4.9) X10*3/uL Kleberg # (Auto) 0.4 (0.1-1.2) X10*3/uL Eos # (Auto) 0.1 (0.0-0.4) X10*3/uL Baso # (Auto) 0.0 (0.0-0.2) X10*3/uL Abs Immat Gran (auto) 0.00 (0.00-0.03) X10*3/uL Absolute Neuts (auto) 2.6 (2.0-8.3) x10*3/uL Absolute Nucleated RBC 0.000 (0.0-0.012) X10*3/uL Nucleated RBC % (auto) 0.0 (0.0-0.2) /100WBC D-Dimer High Sensitivty < 150 NG/ML Sodium 142 (135-145) mmol/L Potassium 3.5 (3.3-5.1) mmol/L Chloride 106 (96-108) mmol/L Carbon Dioxide 26 (22-29) mmol/L Anion Gap 14 (12-20) BUN 13 (9-16) mg/dL Creatinine 0.66 (0.5-1.4) mg/dL Estim Creat Clear Calc 59.9 Estimated GFR > 60 Random Glucose 99 (60-115) mg/dL Calcium 9.2 (8.4-10.2) mg/dL Magnesium 2.1 (1.6-2.6) mg/dL Total Bilirubin 0.5 (0.0-1.0) mg/dL AST 26 (5-31) U/L ALT 17 (0-31) U/L Alkaline Phosphatase 56 (39-117) U/L Troponin I High Sens < 2.7 < 2.7 (<3.5-17.0) ng/L B-Natriuretic Peptide 72 (<100) pg/mL Total Protein 6.9 (6.5-8.0) g/dL Albumin 4.2 (3.5-5.0) g/dL Lipase 34 (8-78) U/L Influenza Type A (PCR) NEGATIVE (Negative) Influenza Type B (PCR) NEGATIVE (Negative) RSV RNA Qual (PCR) NEGATIVE (Negative) SARS-CoV-2 RNA (RT-PCR) NEGATIVE (Negative) Independent Interpretation I performed an independent interpretation of an: EKG Interpretation: Normal sinus rhythm heart rate 68 beats per minute normal interval normal axis no acute ST-T changes no acute impression EKG Discharge Plan Discharge Clinical Impression: Atypical chest pain, Chronic bronchitis Patient Disposition: Home, Self-Care Instructions: Chest Pain (ED), Chronic Bronchitis (DC) Additional Instructions: Stop smoking Start taking inhaler 2 puffs every 6-8 hours as needed for shortness of breath/cough Cough drops as advised Follow with your PCP Prescriptions: New benzonatate 200 mg capsule 200 mg PO TID PRN (Reason: cough) Qty: 30 0RF albuterol sulfate [ProAir HFA] 90 mcg/actuation HFA aerosol inhaler 2 puff inhalation Q4-6H PRN (Reason: shortness of breath or wheezing) Qty: 8.5 0RF No Action cetirizine [Zyrtec] 10 mg Tablet 10 mg PO DAILY citalopram 20 mg tablet 1 tab PO DAILY omeprazole 20 mg capsule,delayed release(DR/EC) 1 cap PO DAILY Interventions: ED Discharge Assessment Last Done: 08/23/23 20:54 Discharge Date/Time: 08/23/23 20:54 Print Language: Armenian
[2023-08-23 12:15] LABS: MANUAL DIFF FLAG NO
[2023-08-23 12:17] LABS: Basophils Percent Auto 0.8 % (0-2); Eosinophils Absolute Auto 0.1 X10*3/uL (0.0-0.4); Eosinophils Percent Auto 1.7 % (0-4); Hematocrit 40.7 % (37.0-47.0); Hemoglobin 14.7 g/dl (12.0-16.0); Lymphocytes Absolute Auto 1.7 X10*3/uL (1.2-4.9); Lymphocytes Percent Auto 34.8 % (20-40); Mean Corpuscular HGB Conc 36.1 g/dl (31.0-35.0); Mean Corpuscular Hemoglobin 32.3 pg (27.0-33.0); Mean Corpuscular Volume 89.5 fL (80.0-98.0); Mean Platelet Volume 9.4 fL (9.4-12.3); Monocytes Absolute Auto 0.4 X10*3/uL (0.1-1.2); Monocytes Percent Auto 8.8 % (2-11); Neutrophils Absolute Auto 2.6 x10*3/uL (2.0-8.3); Neutrophils Percent Auto 53.9 % (45-73); Platelet Count 228 X10*3/uL (160-400); Red Blood Count 4.55 X10*6/uL (4.20-5.50); Red Cell Distribution Width 12.5 % (11.0-16.0); White Blood Count 4.8 X10*3/uL (4.8-10.8)
[2023-08-23 12:31] LABS: Alanine Aminotransferase 17 U/L (0-31); Albumin Level 4.2 g/dL (3.5-5.0); Alkaline Phosphatase 56 U/L (39-117); Anion Gap 14 (12-20); Aspartate Amino Transferase 26 U/L (5-31); Bilirubin Total 0.5 mg/dL (0.0-1.0); Blood Urea Nitrogen 13 mg/dL (9-16); Calcium 9.2 mg/dL (8.4-10.2); Carbon Dioxide 26 mmol/L (22-29); Chloride 106 mmol/L (96-108); Creatinine Clr Calc Pharmacy 59.9; Estimated Glomerular Filt Rate > 60; Glucose Random 99 mg/dL (60-115); Lipase 34 U/L (8-78); Magnesium 2.1 mg/dL (1.6-2.6); Potassium 3.5 mmol/L (3.3-5.1); Sodium 142 mmol/L (135-145); Total Protein 6.9 g/dL (6.5-8.0)
[2023-08-23 12:43] LABS: Troponin-I High Sensitivity < 2.7 ng/L (<3.5-17.0)
[2023-08-23 13:22] LABS: Influenza A PCR NEGATIVE (Negative); Influenza B PCR NEGATIVE (Negative); Resp Syncy Virus RNA Qual PCR NEGATIVE (Negative); SARS COV2 PCR INHOUSE NEGATIVE (Negative)
[2023-08-23 17:10] VITALS: BP 156/57; PULSE 61; RESP 16; TEMP 36.3; O2SAT 97
--- NOTE | 2023-08-23 17:11 | MHC.EDTECH ---
This pct just assumed care of patient ,vitals taken and patient was hooked up to campus monitor ,call jacinto within patient reach .
--- NOTE | 2023-08-23 17:45 | PC.NURSE ---
Patient presents with chest pain, at this time patient states that the pain is more in her back. Patient is alert and oriented, no s/s of distress noted, sinus donnie on bedside monitor.
[2023-08-23 17:56] VITALS: BP 146/69; PULSE 52; RESP 14; TEMP 36.6; O2SAT 98
--- NOTE | 2023-08-23 18:40 | MHC.EDTECH ---
Repeated labs drawn and sent to lab ,per provider request ,patient went on an ambulation trial ,Patient walk 1 times around the the ed ,Patient back to bed ,o2 sat check was 96 % on room air Provider aware .
--- NOTE | 2023-08-23 18:43 | MHC.EDTECH ---
Patient had a tuna fish sandwich and isabel heather for dinner .
[2023-08-23 19:11] LABS: B Type Natriuretic Peptide 72 pg/mL (<100)
[2023-08-23 19:15] LABS: Troponin-I High Sensitivity < 2.7 ng/L (<3.5-17.0)
[2023-08-23 19:18] LABS: D Dimer High Sensitivity < 150 NG/ML
[2023-08-23 20:21] VITALS: BP 149/67; PULSE 64; RESP 16; TEMP 36.4; O2SAT 96
[2023-08-23] MEDS: Albuterol Sulfate 90 MCG 8 GM INHALER 2 PUFF INHALE (20:48)
[2023-08-23 20:54] VITALS: BP 149/67; PULSE 64; RESP 16; TEMP 36.4; O2SAT 96
== END 2023-08-23 20:54 | disposition home or self-care (01) ==
PROVIDERS: Nurse Practitioner Family; Emergency Provider Internal Medicine; PCP Internal Medicine
DX: J42 Unspecified chronic bronchitis (principal); R07.89 Other chest pain; R06.02 Shortness of breath; R42 Dizziness and giddiness; Z79.899 Other long term (current) drug therapy; Z03.818 Encounter for observation for suspected exposure to other biological agents ruled out; Z87.891 Personal history of nicotine dependence
CPT/HCPCS: 0241U; 36415; 71046; 80053; 83690; 83735; 83880; 84484; 85025; 85379; 93005; 99284; 99285

== ENCOUNTER → 2023-08-23 10:56 | Outpatient (BNV) | payer MEDICARE, OTHER, SELFPAY | PROVIDERS: Emergency Provider Internal Medicine; PCP Internal Medicine; Visit Provider Internal Medicine Cardiovascular Disease | DX: R07.9 Chest pain, unspecified (principal) | CPT/HCPCS: 93010 ==

== ENCOUNTER 2023-11-12 12:42 | Outpatient (REF) | payer MEDICARE, OTHER, SELFPAY ==
[2023-11-12 13:01] LABS: MANUAL DIFF FLAG NO
[2023-11-12 13:33] LABS: Basophils Percent Auto 0.6 % (0-2); Eosinophils Absolute Auto 0.1 X10*3/uL (0.0-0.4); Eosinophils Percent Auto 1.4 % (0-4); Hematocrit 42.5 % (37.0-47.0); Hemoglobin 14.6 g/dl (12.0-16.0); Imm Gran Abs Auto 0.01 X10*3/uL (0.00-0.03); Imm Gran Pct Auto 0.2 % (0.0-0.4); Lymphocytes Absolute Auto 1.5 X10*3/uL (1.2-4.9); Mean Corpuscular HGB Conc 34.4 g/dl (31.0-35.0); Mean Corpuscular Hemoglobin 32.2 pg (27.0-33.0); Mean Corpuscular Volume 93.8 fL (80.0-98.0); Mean Platelet Volume 9.7 fL (9.4-12.3); Monocytes Absolute Auto 0.6 X10*3/uL (0.1-1.2); Monocytes Percent Auto 8.4 % (2-11); Neutrophils Absolute Auto 4.3 x10*3/uL (2.0-8.3); Neutrophils Percent Auto 66.4 % (45-73); Platelet Count 243 X10*3/uL (160-400); Red Blood Count 4.53 X10*6/uL (4.20-5.50); Red Cell Distribution Width 12.6 % (11.0-16.0); White Blood Count 6.5 X10*3/uL (4.8-10.8)
[2023-11-12 13:57] LABS: Alanine Aminotransferase 20 U/L (0-31); Albumin Level 4.1 g/dL (3.5-5.0); Alkaline Phosphatase 62 U/L (39-117); Amylase 36 U/L (28-100); Anion Gap 8 (12-20); Aspartate Amino Transferase 22 U/L (5-31); Bilirubin Direct 0.2 mg/dL (0.0-0.5); Bilirubin Total 0.6 mg/dL (0.0-1.0); Blood Urea Nitrogen 10 mg/dL (9-16); C Reactive Protein 2.71 mg/dL (< or = 0.50); Calcium 9.4 mg/dL (8.4-10.2); Carbon Dioxide 32 mmol/L (22-29); Chloride 103 mmol/L (96-108); Estimated Glomerular Filt Rate > 60; Glucose Random 115 mg/dL (60-115); Lipase 22 U/L (8-78); Potassium 4.4 mmol/L (3.3-5.1); Sodium 139 mmol/L (135-145); Total Protein 6.9 g/dL (6.5-8.0)
[2023-11-12 14:16] LABS: Erythrocyte Sedimentation Rate 14 MM/HR (0-20)
[2023-11-12 18:33] LABS: CDiff Gene PCR NEGATIVE (Negative)
[2023-11-12 20:33] LABS: Leukocytes Stool Qualitative NEGATIVE (NEGATIVE)
[2023-11-13 09:38] LABS: Adenovirus F 40/41 Not Detected (Not Detect.); Astrovirus Not Detected (Not Detect.); Campylobacter Not Detected (Not Detect.); Cryptosporidium Not Detected (Not Detect.); Cyclospora cayetanensis Not Detected (Not Detect.); E. coli EAEC Not Detected (Not Detect.); E. coli EPEC Detected (Not Detect.); E. coli ETEC Not Detected (Not Detect.); E. coli STEC Not Detected (Not Detect.); Entamoeba histolytica Not Detected (Not Detect.); Giardia lamblia Not Detected (Not Detect.); Norovirus GI/GII Not Detected (Not Detect.); Plesiomonas shigelloides Not Detected (Not Detect.); Rotavirus A Not Detected (Not Detect.); Salmonella Not Detected (Not Detect.); Sapovirus Not Detected (Not Detect.); Shigella sp./EIEC Not Detected (Not Detect.); Vibrio Not Detected (Not Detect.); Vibrio Cholerae Not Detected (Not Detect.); Yersinia enterocolitica Not Detected (Not Detect.)
[2023-11-17 22:39] LABS: Calprotectin, Fecal 6 mcg/g
== END 2023-11-12 12:43 | disposition home or self-care (01) ==
LOC: HO.LAB 12:42
PROVIDERS: PCP Internal Medicine; Visit Provider Internal Medicine
DX: R10.9 Unspecified abdominal pain (principal); R19.7 Diarrhea, unspecified
CPT/HCPCS: 36415; 80048; 80076; 82150; 83690; 83993; 85025; 85652; 86140; 87493; 87507; 89055

== ENCOUNTER 2023-11-23 12:47 | Outpatient (REF) | payer MEDICARE, OTHER, SELFPAY ==
--- NOTE | ~2023-11-23 | MR_ITS ---
EXAMINATION: MR ABDOMEN WITHOUT AND WITH CONTRAST CLINICAL INFORMATION: IPMN COMPARISON: MRI abdomen 11/30/2022 TECHNIQUE: MRI of the abdomen before and after the IV administration of 5 mL of Gadavist was obtained using routine sequences. FINDINGS: LUNG BASES: The visualized lung bases are unremarkable. KIDNEYS AND URETERS: Mild right hydronephrosis similar to prior. Large 10.4 cm Bosniak 1 right renal cyst, no imaging follow-up recommended. GALLBLADDER: Unremarkable. LIVER AND BILIARY TREE: The liver is normal in signal and morphology. No intra or extrahepatic biliary duct dilatation or intraluminal filling defect to suggest choledocholithiasis. PANCREAS: 0.8 cm T2 bright lesion in the pancreatic body, previously 0.7 cm a few stable additional smaller tiny pancreatic cysts, unchanged from prior see mcgee images no pancreatic duct dilatation or suspicious enhancing solid nodules.. SPLEEN: Unremarkable ADRENAL GLANDS: Unremarkable GASTROINTESTINAL TRACT: Small hiatal hernia. Colonic diverticulosis without evidence of diverticulitis. LYMPH NODES: No lymphadenopathy. VASCULAR: Unremarkable ABDOMINAL WALL: Unremarkable. OSSEOUS STRUCTURES: Multilevel degenerative disc disease. OTHER: Myomatous uterus partially imaged. MR/MR abdomen wo/w con IMPRESSION: 1. Few subcentimeter pancreatic cysts the largest measuring 0.8 cm not significantly changed from prior. No high risk stigmata. Recommend every other year follow-up with contrast enhanced MR or CT pancreas protocol x5 for a total of 10 years of documented stability. If the patient reaches 80 years of age before the end of follow-up, follow-up should generally stop. 2. Mild right hydronephrosis similar to prior. 3. Small hiatal hernia. 4. Myomatous uterus partially imaged. 5. Large 10.4 cm Bosniak 1 right renal cyst, no imaging follow-up recommended. Electronically signed by: Lolita Begum MD 12/06/2023 03:19 PM EDT
[2023-11-23] MEDS: gadobutroL 7.5 ML VIAL IVPUSH (13:44)
== END 2023-11-23 12:48 | disposition home or self-care (01) ==
LOC: HO.MRI 12:47
PROVIDERS: PCP Internal Medicine; Visit Provider Internal Medicine
DX: D49.0 Neoplasm of unspecified behavior of digestive system (principal)
CPT/HCPCS: 74183; A9585

== ENCOUNTER 2023-11-26 13:07 | Outpatient (AMB) | payer MEDICARE, OTHER, SELFPAY ==
[2023-11-26 13:11] VITALS: BP 132/64; PULSE 66; BMI 22.2
--- NOTE | 2023-11-26 13:11 | MHC.OFFVIS ---
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 She states that she had COVID in 2021 and then 2022. After that, she has been having some chest pressure somewhat consistently. She did see Cardiology at [facility] last year and it seems she might have had a stress test. After that, she briefly felt better but then the chest pressure is coming back. When she is exerting she feels a vague pressure in the front of the chest. She can still walk through that and then it seems resolved. She also has some emphysema based on pulmonary notes and CT scan. Unclear if it is cardiac or pulmonary. Otherwise, no known coronary artery disease or myocardial infarction or cardiomyopathy. 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 difficile enteritis Anxiety Elevated cholesterol Hiatal hernia GERD (gastroesophageal reflux disease) Surgical History Hx of appendectomy History of tonsillectomy and adenoidectomy Hx of tubal ligation History of back surgery History of esophagogastroduodenoscopy (EGD) H/O colonoscopy Family History (Updated 11/26/23 @ 13:19 by Nichole Oates CMA) Mother Stroke Father Parkinsons disease Sister Essential lymphedema Hypertension DM type 2 (diabetes mellitus, type 2) Heart attack Social History Alcohol intake: current Alcohol intake frequency: a few times a week Patient Tobacco Use Status: Former Tobacco user Substance Use Type: Marijuana Review of Systems Const Denies chills, Denies fatigue, Denies fever(s), Denies weight gain and Denies weight loss Eyes Denies loss of vision ENT Denies dizziness Card Denies chest pain, Denies leg edema, Denies lightheadedness, Denies palpitations, Denies dyspnea on exertion, Denies orthopnea and Denies other Resp Denies cough, Denies dyspnea on exertion and Denies wheezing GI Denies hematochezia and Denies change in stool character Denies urinary frequency and Denies dysuria Musc Denies abnormal gait, Denies muscle weakness, Denies numbness, Denies radiating pain into limb and Denies tingling Skin/Breast Denies nail changes and Denies rash Neuro Denies Abnormal speech present, Denies abnormal gait, Denies dizziness, Denies loss of vision, Denies memory loss, Denies numbness and Denies tingling Psych Denies depression and Denies memory loss Endo Denies fatigue and Denies palpitations Sai/Lymph Denies easy bruising Aller/Immun Denies wheezing Physical Exam Vital Signs: Last Vital Signs Pulse 66 11/26/23 13:11 BP 132/64 11/26/23 13:11 BMI result Body Mass Index 22.2 Const General: comfortable and no acute distress Orientation/consciousness: patient oriented x3 HEENT Other: Unremarkable Head: Yes normal to inspection Neck Neck: Yes normal visual inspection Chest Chest palpation & inspection: normal inspection of the chest Resp Auscultation: clear to auscultation bilaterally Cardio Palpation: normal PMI Heart sounds: S1 normal heart sound present, S2 normal heart sound present, no gallops, no murmurs and no rubs GI Palpation (GI): Soft to palpation Back/Spine/Pelvis Other: unremarkable Skin General skin exam: no rashes or lesions noted Neuro General: patient oriented x3 Speech: No Abnormal speech present Extrem General: Yes normal to inspection Psych Mental Status: mental status grossly normal Assessment & Plan Assessment & Plan (1) Chest pressure: Code(s): R07.89 - Other chest pain Category: Medical Plan EKG with underlying sinus rhythm at 68/Min; no significant ST-T changes and otherwise unremarkable. Symptoms possibly from COPD but will need to look for any anginal equivalents as well. Will get echocardiogram as well as stress perfusion imaging study. Obtain any testing done at [facility] last year. Follow-up after the above. Orders: Orders NM cardiolite stress test Today R07.2 - Precordial pain, R07.89 - Other chest pain CA echo transthoracic complete Today R07.89 - Other chest pain CA stress test Today R07.2 - Precordial pain Coding Level of Care Code New Pt Level 4 (92088) Diagnoses Chest pressure R07.89
== END 2023-11-26 13:42 | disposition home or self-care (01) ==
PROVIDERS: PCP Internal Medicine; Visit Provider Internal Medicine
DX: R07.89 Other chest pain (principal)
CPT/HCPCS: 99213

== ENCOUNTER → 2023-11-26 13:07 | Outpatient (BNVA) | payer MEDICARE, OTHER, SELFPAY | PROVIDERS: PCP Internal Medicine; Visit Provider Internal Medicine | DX: R07.89 Other chest pain (principal) | CPT/HCPCS: 99212 ==

== ENCOUNTER → 2023-12-02 12:53 | Outpatient (REF) | payer MEDICARE, OTHER, SELFPAY ==
--- NOTE | 2023-12-02 13:20 | CA_ITS ---
Transthoracic Echocardiogram Patient (Last, First, Middle): Denisse Paz E Gender: Female Date of : 1945 Age: 78 Procedure Date: 12/02/2023 Procedure Type: Transthoracic Echocardiogram Location: OP Height: 160.02 cm Weight: 54.43 kg BSA: 1.56 m2 Heart Rate: bpm BP: 140 / 84 mmHg Research Intern: LILIAN Referring MD: Jean-Claude Santos MD Veterinary Virus Serum Inspector: Amadeo Dela Cruz MD Symptoms: R07.89 - Other chest pain Study Quality: Adequate ECG Rhythm: Sinus Conclusions: - 1. Normal LV ejection fraction of 60 65% with impaired relaxation filling pattern 2. Mild aortic and mitral regurgitation 3. Normal RV systolic pressure 4. Mildly dilated ascending aorta 3.9 cm 5. No gross pericardial effusion Findings Left Ventricle Normal left ventricular size, thickness, and systolic function. The visually estimated ejection fraction is between 60-65%. Spectral Doppler is indicative of an impaired relaxation filling pattern. E/E prime ratio is between 8 and 15 consistent with indeterminate filling pressures. Right Ventricle Normal right ventricular cavity size and systolic function. Atria Both atria are normal in size. There is no evidence of interatrial shunt. Aortic Valve There is mild calcification of the aortic valve. There is no aortic valve stenosis. There is mild aortic valve regurgitation. Mitral Valve There is mild anterior and posterior mitral leaflet thickening. There is mild mitral valve regurgitation. There is no mitral valve stenosis. Pulmonic Valve The pulmonic valve is likely normal. There is trace pulmonic valve regurgitation. Tricuspid Valve Normal tricuspid valve structure. There is trace tricuspid valve regurgitation. The right ventricular systolic pressure is normal. The right ventricular systolic pressure is 25 mmHg. Normal right atrial pressure. There is no evidence of pulmonary hypertension. Great Vessels The pulmonary artery was not well visualized. There is mild dilatation of the ascending aorta measuring 3.90 cm. Small plaque is seen in the sino tubular ridge. Venous The inferior vena cava is normal in size and collapses greater than 50% with inspiration. Pericardium/Pleural There is no evidence of pericardial effusion. Prior Study Comparison Changes noted compared to prior study dated: 05/23/2022. Ascending aorta is mildly dilated Measurements 2D Linear Measurements IVSd: 1.04 0.6-0.9/0.6-1.0 cm LVIDd: 3.46 3.9-5.3/4.2-5.9 cm LVIDd Index: 2.22 2.4-3.2/2.2-3.1 cm/m2 LVIDs: 2.21 2.0-3.6 cm LVPWd: 0.78 0.7-1.1 cm LA Diam: 2.70 2.7-3.8/3.0-4.0 cm LAIDs Index: 1.73 1.5-2.3 cm/m2 LV Mass: 110.01 67-162/88-224 g LV Mass Index: 70.52 43-95/49-115 g/m2 LVOT Diam: 2.00 3.0+(-)1.3 cm 2D Systolic Function EF 4C: 62.50 >55% EF 2C: 69.10 >55% EF BiP: 65.80 >55% Mitral Valve MV Pk E: 0.63 MV PK A: 0.62 MV Decel Time: 274.00 E/A: 1.00 E'Lateral: 7.18 E'Medial: 4.13 E/E' Med: 15.40 E/E' Lat: 8.80 PHT: 80.00 MVA PHT: 2.75 Decel Guthrie: 2.31 Aortic Valve AoV Pk Lito: 1.40 AoV Mn Lito: 0.98 AoV VTI: 0.37 AoV Pk Grad: 8.00 Aov Mn Grad: 4.00 ANNA Cont.VTI: 2.22 AI Pk Lito: 4.46 AI Guthrie: 1.46 LVOT LVOT Pk Liot: 0.95 LVOT Mn Lito: 0.65 LVOT VTI: 0.26 LVOT Pk Grad: 4.00 LVOT Mn Grad: 2.00 LVOT Diam: 2.00 LVOT Area: 3.14 Diastolic Function MV Pk E: 0.63 MV Pk A: 0.62 E/A: 1.00 E'Medial: 4.13 E/E' Med: 15.40 E' Laterial: 7.18 E/E' Lat: 8.80 Right Ventricle TAPSE (mm): 22.00 TVS' Lito: 9.14 Tricuspid Valve TR Pk Lito: 2.33 TR Pk Grad: 22.00 RA Press: 3.00 RVSP: 25.00 Great Vessels Aorta Sinus of Valsalva: 3.68 2.0-3.[address] [place]: 3.17 1.7-3.4 cm Ao Asc: 3.90 2.1-3.4 cm Updated in Other Vendor System with Status of Final Amadeo Dela Cruz MD electronically signed on 12/03/2023 12:23:33 PM with status of Final
== END ==
LOC: HO.CARD 12:53
PROVIDERS: PCP Internal Medicine; Visit Provider Internal Medicine
DX: R07.89 Other chest pain (principal)
CPT/HCPCS: 93306

== ENCOUNTER → 2023-12-02 13:20 | Outpatient (BNV) | payer MEDICARE, OTHER, SELFPAY | PROVIDERS: PCP Internal Medicine; Visit Provider Internal Medicine Cardiovascular Disease | DX: I35.1 Nonrheumatic aortic (valve) insufficiency (principal); I34.0 Nonrheumatic mitral (valve) insufficiency; R93.1 Abnormal findings on diagnostic imaging of heart and coronary circulation | CPT/HCPCS: 93306 ==

== ENCOUNTER → 2023-12-11 10:01 | Outpatient (REF) | payer MEDICARE, OTHER, SELFPAY ==
--- NOTE | ~2023-12-11 | NM_ITS ---
EXERCISE MYOCARDIAL PERFUSION STUDY INDICATION: Chest pain TECHNIQUE: The patient was brought in for an exercise perfusion study on 12/11/2023. Patient performed exercise as per Domenico protocol and was injected 25 mCi of sestamibi once target heart rate was achieved. Images were obtained using the SPECT gamma camera interlaced with the gating device. Images were obtained in supine position. Resting perfusion study was performed on 12/13/2023. Patient was administered 25 mCi of sestamibi intravenously at rest. Images were then obtained in supine position. Total DLP 74 mGy-cm. Images were processed with the software and compared side to side in short axis, horizontal long axis and vertical long axis views. FINDINGS: Raw aquisition reviewed. Prominent subdiaphragmatic uptake. The stress perfusion study showed diminished tracer uptake in the basal part of inferior wall. There is improvement with CT attenuation correction suggestive of diaphragmatic attenuation artifact. The gated study shows normal LV systolic function with calculated LVEF of 61%. LV cavity is normal in size. The gated study shows normal wall thickening and contraction of segments. Resting study shows diminished tracer uptake in the basal inferior wall. There is also adjacent subdiaphragmatic tracer uptake which could contribute to diminished inferior uptake. Gating at rest reveals normal wall motion with ejection fraction at 57%. The findings are consistent with mixed basal inferior perfusion defect, probably artifactual; could be related to subdiaphragmatic tracer uptake. NM/NM cardiolite stress test IMPRESSION: 1. Myocardial perfusion imaging study shows mixed basal inferior defect thought to be artifactual. Less likely true perfusion defect. 2. Gated LVEF is 61% during stress and 57% during rest. 3. Transient ischemic dilatation not present. EKG component of the test reported separately. Electronically signed by: Jean-Claude Santos MD 12/15/2023 11:47 AM EDT
--- NOTE | 2023-12-11 10:04 | CA_ITS ---
Acquisition Time: 2023-12-11 10:08:02 Total Exercise Time: 00:06:40 Test Indications: CP Medications: SEE H Protocol: DYLAN Max HR: 137 BPM 95% of Pred: 144 BPM Max BP: 170/080 mmHG Max Work Load: 8.0 METS Exercise stress test exercise 6 min 40 sec of Dylan protocol achieivng 88% MPHR, with mild to moderate SOB, no chest discomfort, with isolated PACs, isolated PVCs, atrial runs (reported skipped beat), with normotensive response to exercise, without EKG chnages. Breathing returned to baseline witrh rest. Nuclear images pending. Test reviewed with Dr. Santos. Referred By: Jean-Claude Santos Overread By: Nola Eller
== END ==
LOC: HO.CARD 10:01
PROVIDERS: PCP Internal Medicine; Visit Provider Internal Medicine
DX: R07.2 Precordial pain (principal); R07.89 Other chest pain
CPT/HCPCS: 78452; 93017; A9500

== ENCOUNTER → 2023-12-11 10:04 | Outpatient (BNV) | payer MEDICARE, OTHER, SELFPAY | PROVIDERS: PCP Internal Medicine; Visit Provider Nurse Practitioner | DX: R07.9 Chest pain, unspecified (principal) | CPT/HCPCS: 78452; 93016; 93018 ==

== ENCOUNTER 2024-01-16 14:28 | Outpatient (AMB) | payer MEDICARE, OTHER, SELFPAY ==
--- NOTE | 2024-01-16 14:29 | A.OFFVIS_ITS ---
Vital Signs 01/16/24 14:30 Height 5 ft 3 in Weight 127 lb 13.89 oz BMI 22.6 BP 118/68 Blood Pressure Location Lt brachial Position Sitting Pulse 78 Pulse Source Pulse Oximeter Intake Visit Reasons: 2 mth fu echo/ mibi Allergies environmental allergies Allergy (Verified 08/23/23 11:15) Sneezing Medication List - Last Reconciled 01/16/24 by Jean-Claude Santos MD cetirizine (Zyrtec) 10 mg PO DAILY citalopram 20 mg PO DAILY omeprazole 1 cap PO DAILY propranolol 10 mg PO ONCE HPI Comments Details: Denisse returns for follow-up regarding chest pressure. Per history, had COVID in 2021 and 2022. Since then, she has been having some chest pressure symptoms intermittently. She was seen at [facility] cardiology and then came here for further workup. Any case, she states that since we last saw her she no longer has any chest discomfort and she is back to normal self. Sometimes when she is going up flights of stairs she may feel a bit short of breath. Otherwise, history of smoking in the past but nothing recently. Has emphysema based on pulmonary notes and CT scans. No known coronary disease myocardial infarction. Since we saw her, she has completed an echocardiogram and stress test. No other complaints at this time when she states she feels good. [facility] Medical History Former smoker, stopped smoking in distant past Cough Smokes less than 1 pack a day with greater than 20 pack year history Hemoptysis [id number] condition Sigmoid diverticulitis C. difficile enteritis Anxiety Elevated cholesterol Hiatal hernia GERD (gastroesophageal reflux disease) Surgical History Hx of appendectomy History of tonsillectomy and adenoidectomy Hx of tubal ligation History of back surgery History of esophagogastroduodenoscopy (EGD) H/O colonoscopy Family History (Updated 11/26/23 @ 13:19 by Nichole Oates CMA) Mother Stroke Father Parkinsons disease Sister Essential lymphedema Hypertension DM type 2 (diabetes mellitus, type 2) Heart attack Social History Alcohol intake: current Alcohol intake frequency: a few times a week Patient Tobacco Use Status: Former Tobacco user Substance Use Type: Marijuana Review of Systems Const Denies weakness ENT Denies dizziness Card Denies chest pain, Denies chest pain with activity, Denies syncope, Denies rapid heart rate, Denies pedal edema, Denies edema, Denies leg edema, Denies lightheadedness, Denies palpitations, Denies dyspnea, Denies dyspnea on exertion and Denies orthopnea Resp Denies cough, Denies dyspnea and Denies dyspnea on exertion GI Denies hematochezia and Denies change in stool character Musc Denies abnormal gait, Denies muscle cramps, Denies muscle weakness, Denies numbness, Denies radiating pain into limb and Denies tingling Neuro Denies abnormal gait, Denies dizziness, Denies syncope, Denies numbness, Denies tingling and Denies weakness Endo Denies palpitations Physical Exam Vital Signs: Last Vital Signs Pulse 78 01/16/24 14:30 BP 118/68 01/16/24 14:30 BMI result Body Mass Index 22.6 Const General: comfortable and no acute distress Orientation/consciousness: patient oriented x3 HEENT Other: Unremarkable Head: Yes normal to inspection Neck Neck: Yes normal visual inspection Chest Chest palpation & inspection: normal inspection of the chest Resp Auscultation: clear to auscultation bilaterally Cardio Palpation: normal PMI Heart sounds: S1 normal heart sound present, S2 normal heart sound present, no gallops, no murmurs and no rubs GI Palpation (GI): Soft to palpation Back/Spine/Pelvis Other: unremarkable Skin General skin exam: no rashes or lesions noted Neuro General: patient oriented x3 Extrem General: Yes normal to inspection Psych Mental Status: mental status grossly normal Assessment & Plan Assessment & Plan (1) Chest pressure: Code(s): R07.89 - Other chest pain Category: Medical Plan Cardiac studies reviewed. EKG with underlying sinus rhythm at 68/Min; no significant ST-T changes and ot herwise unremarkable. In the echocardiogram, LVEF 60-65%; mild aortic/mitral regurgitation. Ascending aortic size 3.9 cm which is top normal/borderline dilated for her age but not of any clear significance at this time. In the exercise stress test, she reached 8 METS exercise capacity; reached target heart rate and hence some shortness of breath but no angina. No EKG evidence of ischemia. Perfusion imaging also unremarkable. Overall, no clear cardiac etiology to explain her symptoms. If she is still gets any recurring chest pressure on exertion, advised her to contact us. May consider further workup at that time. Otherwise, symptoms possibly from COPD. She understands and agrees. She will contact us as needed. Coding Level of Care Code Est Pt Level 3 (45315) Diagnoses Chest pressure R07.89
[2024-01-16 14:30] VITALS: BP 118/68; PULSE 78; BMI 22.6
== END 2024-01-16 14:41 | disposition home or self-care (01) ==
LOC: HO.HCS 14:28
PROVIDERS: PCP Internal Medicine; Visit Provider Internal Medicine
DX: R07.89 Other chest pain (principal)
CPT/HCPCS: 99213

== ENCOUNTER → 2024-01-16 14:28 | Outpatient (BNVA) | payer MEDICARE, OTHER, SELFPAY | PROVIDERS: PCP Internal Medicine; Visit Provider Internal Medicine | DX: R07.89 Other chest pain (principal) | CPT/HCPCS: 99212 ==

== ENCOUNTER 2024-02-06 10:28 | Emergency (ER) | payer MEDICARE, OTHER, SELFPAY ==
--- NOTE | ~2024-02-06 | CT_ITS ---
EXAMINATION: CT ABDOMEN AND PELVIS WITH CONTRAST CLINICAL INFORMATION: Lower abdominal pain. Vomiting. History of diverticulitis. COMPARISON: No prior CT. Correlated to MRI abdomen dated November 23, 2023. TECHNIQUE: Multidetector volumetric images were obtained from the superior aspect of the liver through the pubic symphysis following administration 85 mL of Omnipaque 350 intravenous contrast. Sagittal and coronal reformatted images were obtained on the technologist's workstation. Oral contrast: No This CT examination was performed using dose optimization techniques as appropriate, variously including the following: *Automated exposure control *Adjustment of mA and/or kV according to patient size (this includes techniques or standardized protocols for targeted exams where dose is matched to indication/reason for exam; i.e. extremities or head) *Use of iterative reconstruction technique DLP: 417 mGy-cm FINDINGS: LUNG BASES: Emphysematous changes without acute airspace disease in the included lung bases. LIVER, GALLBLADDER, AND BILIARY TREE: Liver measures 15 cm. No focal mass. Focal hypodensity adjacent to the falciform ligament likely fatty infiltration. Main portal veins, hepatic veins and intrahepatic portion of the IVC are patent. No intrahepatic or extra hepatic biliary ductal dilatation. No pericholecystic fluid collection or gallbladder wall thickening. PANCREAS: No focal pancreatic mass. No peripancreatic fluid collection. No main pancreatic ductal dilatation. SPLEEN: 10 cm. No focal mass. ADRENAL GLANDS: No nodular lesions. KIDNEYS AND URETERS: There is a large, 9 cm exophytic seen septated fluid density lesion in the right kidney extending into the right lower retroperitoneum. No gross renal mass or hydronephrosis. BLADDER: Fluid-filled. GASTROINTESTINAL TRACT: There is a segmental area of asymmetric wall thickening and narrowed lumen of the sigmoid colon with multiple diverticula. No pericolonic fluid collection or gross edema pattern. Abundant stool. Multiple diverticula throughout the transverse and left hemicolon. No intestinal obstruction pattern. No ascites. No pneumoperitoneum. No pneumatosis intestinalis. I do not see the appendix, though no pericecal edema pattern. ABDOMINAL WALL: Small tiny fat-containing umbilical hernia. LYMPH NODES: Prominent nonspecific lymph nodes, mesenteric. VASCULAR: Throughout the abdominal aorta wall and iliac arteries without aneurysm or dissection. PELVIC VISCERA: Heterogeneous partially calcified low density soft tissue lesions in the right and midline lower pelvis likely related to the uterus, the largest measures 7 cm and the small measures 2 cm. OSSEOUS STRUCTURES: Multilevel thoracolumbar spondylosis resulting in grade 1 anterolisthesis L4-5 with bilateral neuroforamina stenosis. S-shaped curvature of the thoracolumbar spine. No acute fracture. CT/CT abdomen pelvis w IV con IMPRESSION: Sigmoid colon diverticular disease noncomplicated diverticulitis cannot be entirely excluded. Bosniak type II cyst, right kidney. Atherosclerosis disease. Probable uterine fibroids. 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 Fleischner guidelines were followed. Electronically signed by: Shaq Caballero MD 02/06/2024 12:17 PM RONEN
[2024-02-06 10:30] VITALS: BP 150/60; PULSE 62; RESP 18; TEMP 36.7; O2SAT 96; BMI 21.8
--- NOTE | 2024-02-06 10:53 | ECG_ITS ---
Test Reason : ABDOMINAL PAIN Blood Pressure : / mmHG Vent. Rate : 051 BPM Atrial Rate : 051 BPM P-R Int : 228 ms QRS Dur : 080 ms QT Int : 494 ms P-R-T Axes : 070 -19 050 degrees QTc Int : 455 ms Sinus bradycardia with 1st degree A-V block Otherwise normal ECG When compared with ECG of 23-AUG-2023 11:02, MS interval has increased Referred By: Gabby Rose Electronically Signed By:KIRA WILLIS MD
--- NOTE | 2024-02-06 11:00 | ED.ABDPAIN ---
HPI - Abdominal Pain General Chief Complaint: Abdominal Pain Stated Complaint: Diverticulitis? Sent by Dr Gramajo Seen by Provider: 02/06/24 10:50 Source: patient and old records reviewed Mode of arrival: ambulatory Limitations: no limitations History of Present Illness ED Provider: FAINA ESTRADA narrative: 78 yo female with PMH of diverticulitis, GERD, anxiety, HLD, c diff here with c/o lower abdominal pain, mushier stools, nausea but no fevers, no bloody stools. Pain is in lower abdomen - pain is not improving after 1.5 weeks. No prior abscess, perforation, surgery with diverticulitis MD elicited complaint: abdominal pain Pertinent past history: diverticulitis Onset (ago): day(s) (10) Pain Consistency: constant Location: LLQ Severity: moderate Quality: aching Radiation: none Migration to: no migration Exacerbating factors: movement Relieving factors: nothing Context: history of similar episodes Associated symptoms: anorexia Related Data Home Medications ?Medication ?Instructions ?Recorded ?Confirmed cetirizine 10 mg tablet (Zyrtec) 10 mg PO DAILY 08/22/21 01/16/24 omeprazole 20 mg capsule,delayed 1 cap PO DAILY 08/22/21 01/16/24 release propranolol 10 mg tablet 10 mg PO ONCE 11/26/23 01/16/24 citalopram 20 mg tablet 20 mg PO DAILY 01/16/24 01/16/24 Previous Rx's ?Medication ?Instructions ?Recorded amoxicillin 875 mg-potassium 1 tab PO BID #19 tabs 02/06/24 clavulanate 125 mg tablet hydrocodone 5 mg-acetaminophen 325 1 tab PO Q6H PRN pain #10 tabs 02/06/24 mg tablet ondansetron 4 mg disintegrating 4 mg PO Q8H PRN nausea and 02/06/24 tablet vomiting #20 tabs Allergies Allergy/AdvReac Type Severity Reaction Status Date / Time environmental allergies Allergy Sneezing Verified 02/06/24 10:32 Review of Systems Review of Systems Constitutional : No Weight loss, No Fever, No Chills ENT/Mouth : No sore throat, No Rhinorrhea Eyes: No Swelling, No Redness Cardiovascular : No Chest Pain, No SOB, NoEdema Respiratory : No Cough, No Sputum, No Wheezing Gastrointestinal : Positive Nausea, no Vomiting, no Diarrhea, positive abdominal Pain, No Hematochezia, No Melena Genitourinary : No Dysuria, No Urinary Frequency, No Hematuria, No Urgency Musculoskeletal : No joint pain, No Myalgias, No Joint Swelling Skin : No Skin Lesions, No rash Neuro : No Weakness, No Numbness, No Dizziness, No Headache All other systems reviewed and are negative. [facility] Past Medical History Attestation statement: The following information was validated with the patient. Source: old records reviewed Medical History Former smoker, stopped smoking in distant past Cough Smokes less than 1 pack a day with greater than 20 pack year history Hemoptysis [id number] condition Sigmoid diverticulitis C. difficile enteritis Anxiety Elevated cholesterol Hiatal hernia GERD (gastroesophageal reflux disease) Surgical History Hx of appendectomy History of tonsillectomy and adenoidectomy Hx of tubal ligation History of back surgery History of esophagogastroduodenoscopy (EGD) H/O colonoscopy Family History Family History (Updated 11/26/23 @ 13:19 by Nichole Oates CMA) Mother Stroke Father Parkinsons disease Sister Essential lymphedema Hypertension DM type 2 (diabetes mellitus, type 2) Heart attack Social History Social History Alcohol intake: current Alcohol intake frequency: a few times a week Patient Tobacco Use Status: Former Tobacco user Smoked in Last 30 Days: No Use of substances other than those prescribed or required for medical reasons: No Substance Use Type: Marijuana Advance Directives: No Advance Directives Information Provided: Yes Do you have a plan to hurt others: No Plan Physical Exam ED Vital Signs: Vital Signs - 24 hr 02/06/24 10:30 Temperature 98.1 F Pulse Rate 62 Respiratory Rate 18 Blood Pressure 150/60 H Pulse Oximetry 96 Oxygen Delivery Method Room Air BMI result Body Mass Index 21.8 Appearance: Alert. Oriented X3. No acute distress. Eyes: Pupils equal, round and reactive to light. ENT: Pharynx normal. Neck: Normal inspection. Neck supple. CVS: Normal heart rate and rhythm. Pulses normal. Respiratory: No respiratory distress. Breath sounds normal. Abdomen: Soft and moderate lower abdominal ttp but no rebound or guarding Skin: Skin warm and dry. Normal skin color. Normal skin turgor. Extremities: No lower extremity edema. No calf ttp Neuro: Oriented X 3. No motor deficit. No sensory deficit. Medical Decision Making Medical Decision Making [facility] Narrative: 78 yo female with PMH of diverticulitis, GERD, anxiety, HLD, c diff here with c/o lower abdominal pain, change in stool and nausea - at this time hx of diverticulitis. She is not toxic appearing will obtain labs, IV morphine for pain, CT scan for diverticulitis. No sig pain to suggest ischemia Differential Diagnosis Differential Diagnoses: The differential diagnosis associated with the presentation includes colitis, diverticulitis, abdominal pain Admission/Observation Consideration of admission/observation: Escalation of care including admission/observation considered not toxic, labs reassuring, tolerating PO Lab Data [facility] Lab Attestation statement: I reviewed the patient's lab results. 02/06/24 11:01 02/06/24 11:01 Labs: Lab Results 02/06/24 02/06/24 Range/Units 11: 12:01 WBC 8.7 (4.8-10.8) X10*3/uL RBC 4.54 (4.20-5.50) X10*6/uL Hgb 14.5 (12.0-16.0) g/dl Hct 39.9 (37.0-47.0) % MCV 87.9 (80.0-98.0) fL MCH 31.9 (27.0-33.0) pg MCHC 36.3 H (31.0-35.0) g/dl RDW 12.6 (11.0-16.0) % Plt Count 286 (160-400) X10*3/uL MPV 9.1 L (9.4-12.3) fL Immature Gran % (Auto) 0.3 (0.0-0.4) % Neut % (Auto) 72.5 (45-73) % Lymph % (Auto) 17.0 L (20-40) % [place] % (Auto) 8.5 (2-11) % Eos % (Auto) 1.1 (0-4) % Baso % (Auto) 0.6 (0-2) % Lymph # (Auto) 1.5 (1.2-4.9) X10*3/uL [place] # (Auto) 0.7 (0.1-1.2) X10*3/uL Eos # (Auto) 0.1 (0.0-0.4) X10*3/uL Baso # (Auto) 0.1 (0.0-0.2) X10*3/uL Abs Immat Gran (auto) 0.03 (0.00-0.03) X10*3/uL Absolute Neuts (auto) 6.3 (2.0-8.3) x10*3/uL Absolute Nucleated RBC 0.000 (0.0-0.012) X10*3/uL Nucleated RBC % (auto) 0.0 (0.0-0.2) /100WBC Sodium 139 (135-145) mmol/L Potassium 3.9 (3.3-5.1) mmol/L Chloride 104 (96-108) mmol/L Carbon Dioxide 26 (22-29) mmol/L Anion Gap 13 (12-20) BUN 13 (9-16) mg/dL Creatinine 0.69 (0.5-1.4) mg/dL Estim Creat Clear Calc 57.4 Estimated GFR > 60 Random Glucose 115 (60-115) mg/dL Calcium 9.7 (8.4-10.2) mg/dL Magnesium 2.1 (1.6-2.6) mg/dL Total Bilirubin 0.6 (0.0-1.0) mg/dL Direct Bilirubin 0.2 (0.0-0.5) mg/dL AST 28 (5-31) U/L ALT 31 (0-31) U/L Alkaline Phosphatase 86 (39-117) U/L Troponin I High Sens < 2.7 (<3.5-17.0) ng/L Total Protein 7.0 (6.5-8.0) g/dL Albumin 4.1 (3.5-5.0) g/dL Lipase 27 (8-78) U/L Urine Color Yellow Urine Appearance Clear Urine pH 8.0 (5.0-9.0) Ur Specific [place] 1.015 (1.005-1.025) Urine Protein Negative (Neg-Trace) mg/dL Urine Glucose (UA) Negative (Negative) mg/dL Urine Ketones Negative (Negative) mg/dL Urine Blood Negative (Negative) Urine Nitrite Negative (Negative) Ur Leukocyte Esterase Negative (Negative) Independent Interpretation I performed an independent interpretation of an: EKG and CT Scan (diverticulitis) Interpretation: Rate: 51 Rhythm: sinus bradycardia [place]: left Normal P waves. Normal DANNI. Normal QRS complex. ST T wave : normal no MARY, inverted t waves V1-V2 qTC: 455 prior studies: no acute ischemia The study has been interpreted contemporaneously by me. . Radiology Impression Discussion of test interpretation with radiology: I have reviewed the radiologist's reading. Independent Historian Clinical information obtained from an independent historian. History obtained from or confirmed by: Spouse External Record Review External record reviewed: Outpatient record Prescription Management I considered prescription management with: Pain Medication, Antibiotic and Other Medications Administered Discontinued Medications Generic Name Dose Route Start Last Admin Trade Name Freq PRN Reason Stop Dose Admin Iohexol 100 ml 02/06/24 11:39 02/06/24 11:39 Iohexol 350 Mg/Ml 100 Ml Infus..Btl IV 02/06/24 11:40 85 ml ONCE ONE Administration Morphine Sulfate 4 mg 02/06/24 10:53 02/06/24 11:06 Morphine Sulfate 4 Mg/Ml Cartridge IVPUSH 02/06/24 10:54 4 mg ONCE ONE Administration Protocol Ondansetron HCl 4 mg 02/06/24 10:53 02/06/24 11:05 Ondansetron Hcl 4 Mg/2 Ml Vial IVPUSH 02/06/24 10:54 4 mg ONCE ONE Administration Discharge Plan Discharge Clinical Impression: Diverticulitis Patient Disposition: Home, Self-Care Instructions: Diverticulitis (ED), Diverticulitis Diet (ED) Additional Instructions: your urine and labs were reassuring it is imperative you notify your GI doctor start a probiotic immediately - Over the counter given hx of cdiff return for fevers, vomiting, severe pain, blood out of rectum that is more than just a streak - should not be there more than 48 hours later please follow up with your primary care doctor NEXT DOSE OF ANTIBIOTIC IS TONIGHT On amoxicillin-clavulanate, softer bowel movements are to be expected. Call your provider if you move your bowels more than 4 times a day, your bowel movements are almost all liquid, or you get a rash.? lots of incidental findings on CT scan but your doctor should follow up CT/CT abdomen pelvis w IV con IMPRESSION: Sigmoid colon diverticular disease noncomplicated diverticulitis cannot be entirely excluded. Bosniak type II cyst, right kidney. Atherosclerosis disease. Probable uterine fibroids. 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 Prescriptions: New hydrocodone-acetaminophen 5-325 mg tablet 1 tab PO Q6H PRN (Reason: pain) Qty: 10 0RF Rx Instructions: partial fill okay; Partial Fill upon patient request. ondansetron 4 mg tablet,disintegrating 4 mg PO Q8H PRN (Reason: nausea and vomiting) Qty: 20 0RF amoxicillin-pot clavulanate 875-125 mg tablet 1 tab PO BID Qty: 19 0RF No Action cetirizine [Zyrtec] 10 mg Tablet 10 mg PO DAILY omeprazole 20 mg capsule,delayed release(DR/EC) 1 cap PO DAILY citalopram 20 mg tablet 20 mg PO DAILY propranolol 10 mg tablet 10 mg PO ONCE Print Language: Palauan
[2024-02-06 11:04] LABS: MANUAL DIFF FLAG NO
[2024-02-06] MEDS: ondansetron HCL 4 MG/2 ML VIAL IVPUSH (11:05)
[2024-02-06 11:06] LABS: Basophils Absolute Auto 0.1 X10*3/uL (0.0-0.2); Basophils Percent Auto 0.6 % (0-2); Eosinophils Absolute Auto 0.1 X10*3/uL (0.0-0.4); Eosinophils Percent Auto 1.1 % (0-4); Hematocrit 39.9 % (37.0-47.0); Hemoglobin 14.5 g/dl (12.0-16.0); Imm Gran Abs Auto 0.03 X10*3/uL (0.00-0.03); Imm Gran Pct Auto 0.3 % (0.0-0.4); Lymphocytes Absolute Auto 1.5 X10*3/uL (1.2-4.9); Mean Corpuscular HGB Conc 36.3 g/dl (31.0-35.0); Mean Corpuscular Hemoglobin 31.9 pg (27.0-33.0); Mean Corpuscular Volume 87.9 fL (80.0-98.0); Mean Platelet Volume 9.1 fL (9.4-12.3); Monocytes Absolute Auto 0.7 X10*3/uL (0.1-1.2); Monocytes Percent Auto 8.5 % (2-11); Neutrophils Absolute Auto 6.3 x10*3/uL (2.0-8.3); Neutrophils Percent Auto 72.5 % (45-73); Platelet Count 286 X10*3/uL (160-400); Red Blood Count 4.54 X10*6/uL (4.20-5.50); Red Cell Distribution Width 12.6 % (11.0-16.0); White Blood Count 8.7 X10*3/uL (4.8-10.8)
[2024-02-06] MEDS: Morphine Sulfate 4 MG/ML CARTRIDGE IVPUSH (11:06)
[2024-02-06 11:22] LABS: Alanine Aminotransferase 31 U/L (0-31); Albumin Level 4.1 g/dL (3.5-5.0); Alkaline Phosphatase 86 U/L (39-117); Anion Gap 13 (12-20); Aspartate Amino Transferase 28 U/L (5-31); Bilirubin Direct 0.2 mg/dL (0.0-0.5); Bilirubin Total 0.6 mg/dL (0.0-1.0); Blood Urea Nitrogen 13 mg/dL (9-16); Calcium 9.7 mg/dL (8.4-10.2); Carbon Dioxide 26 mmol/L (22-29); Chloride 104 mmol/L (96-108); Creatinine Clr Calc Pharmacy 57.4; Estimated Glomerular Filt Rate > 60; Glucose Random 115 mg/dL (60-115); Lipase 27 U/L (8-78); Magnesium 2.1 mg/dL (1.6-2.6); Potassium 3.9 mmol/L (3.3-5.1); Sodium 139 mmol/L (135-145)
[2024-02-06 11:30] LABS: Troponin-I High Sensitivity < 2.7 ng/L (<3.5-17.0)
[2024-02-06] MEDS: iohexoL 350 MG/ML 100 ML INFUS..BTL IV (11:39)
[2024-02-06 12:11] LABS: Appearance Urine Clear; Color Urine Yellow; Glucose Urine UA Negative (Negative); Leukocyte Esterase Urine Negative (Negative); Nitrite Urine Negative (Negative); Specific Gravity - Urine 1.015 (1.005-1.025); Urine Blood Negative (Negative); Urine Ketones Negative (Negative); Urine Protein Negative (Neg-Trace)
[2024-02-06 12:50] VITALS: BP 147/71; PULSE 52; RESP 18; TEMP 36.6; O2SAT 95
[2024-02-06] MEDS: Amoxicillin/Potassium Clav 875 MG TABLET PO (12:59)
[2024-02-06 13:00] VITALS: BP 147/71; PULSE 52; RESP 18; TEMP 36.6; O2SAT 95
== END 2024-02-06 13:02 | disposition home or self-care (01) ==
PROVIDERS: Emergency Provider Emergency Medicine; PCP Internal Medicine
DX: K57.32 Diverticulitis of large intestine without perforation or abscess without bleeding (principal); R10.2 Pelvic and perineal pain; R10.32 Left lower quadrant pain; R11.0 Nausea; R00.1 Bradycardia, unspecified; Z87.891 Personal history of nicotine dependence; Z79.899 Other long term (current) drug therapy
CPT/HCPCS: 36415; 74177; 80048; 80076; 81003; 83690; 83735; 84484; 85025; 93005; 96374; 96375; 99284; J2270; J2405; Q9967

== ENCOUNTER → 2024-02-06 10:53 | Outpatient (BNV) | payer MEDICARE, OTHER, SELFPAY | PROVIDERS: Emergency Provider Emergency Medicine; PCP Internal Medicine; Visit Provider Radiology Diagnostic Radiology | DX: K57.32 Diverticulitis of large intestine without perforation or abscess without bleeding (principal); N28.1 Cyst of kidney, acquired; I70.90 Unspecified atherosclerosis; M47.896 Other spondylosis, lumbar region | CPT/HCPCS: 74177 ==

== ENCOUNTER → 2024-02-06 10:53 | Outpatient (BNV) | payer MEDICARE, OTHER, SELFPAY | PROVIDERS: Emergency Provider Emergency Medicine; PCP Internal Medicine; Visit Provider Internal Medicine Cardiovascular Disease | DX: R00.1 Bradycardia, unspecified (principal); I44.0 Atrioventricular block, first degree | CPT/HCPCS: 93010 ==

== ENCOUNTER 2024-02-17 10:03 | Outpatient (REF) | payer MEDICARE, OTHER, SELFPAY ==
[2024-02-17 10:23] LABS: MANUAL DIFF FLAG NO
[2024-02-17 10:49] LABS: Basophils Percent Auto 0.7 % (0-2); Eosinophils Absolute Auto 0.1 X10*3/uL (0.0-0.4); Eosinophils Percent Auto 1.7 % (0-4); Hematocrit 40.6 % (37.0-47.0); Imm Gran Abs Auto 0.02 X10*3/uL (0.00-0.03); Imm Gran Pct Auto 0.3 % (0.0-0.4); Lymphocytes Absolute Auto 1.4 X10*3/uL (1.2-4.9); Lymphocytes Percent Auto 23.1 % (20-40); Mean Corpuscular HGB Conc 34.5 g/dl (31.0-35.0); Mean Corpuscular Hemoglobin 31.6 pg (27.0-33.0); Mean Corpuscular Volume 91.6 fL (80.0-98.0); Mean Platelet Volume 9.1 fL (9.4-12.3); Monocytes Absolute Auto 0.5 X10*3/uL (0.1-1.2); Monocytes Percent Auto 7.9 % (2-11); Neutrophils Absolute Auto 3.9 x10*3/uL (2.0-8.3); Neutrophils Percent Auto 66.3 % (45-73); Platelet Count 270 X10*3/uL (160-400); Red Blood Count 4.43 X10*6/uL (4.20-5.50); Red Cell Distribution Width 12.4 % (11.0-16.0); White Blood Count 5.9 X10*3/uL (4.8-10.8)
[2024-02-17 11:50] LABS: Alanine Aminotransferase 31 U/L (0-31); Albumin Level 3.9 g/dL (3.5-5.0); Alkaline Phosphatase 90 U/L (39-117); Anion Gap 8 (12-20); Aspartate Amino Transferase 29 U/L (5-31); Bilirubin Total 0.5 mg/dL (0.0-1.0); Blood Urea Nitrogen 15 mg/dL (9-16); Calcium 8.8 mg/dL (8.4-10.2); Carbon Dioxide 31 mmol/L (22-29); Chloride 105 mmol/L (96-108); Cholesterol 212 mg/dL (<200); Estimated Glomerular Filt Rate > 60; Glucose Fasting 114 mg/dL (60-99); HDL Cholesterol 57 mg/dL (>40); LDL Cholesterol Calculated 128 mg/dL (<100); Potassium 3.9 mmol/L (3.3-5.1); Sodium 140 mmol/L (135-145); Thyroid Stimulating Hormone 2.74 uIU/mL (0.32-4.0); Total Protein 6.8 g/dL (6.5-8.0); Triglycerides 136 mg/dL (<150); Vitamin D 25-OH Total 35.2 ng/mL (>30)
== END 2024-02-17 10:04 | disposition home or self-care (01) ==
LOC: HO.LAB 10:03
PROVIDERS: PCP Internal Medicine; Visit Provider Internal Medicine
DX: K21.9 Gastro-esophageal reflux disease without esophagitis (principal); F41.9 Anxiety disorder, unspecified; E78.00 Pure hypercholesterolemia, unspecified
CPT/HCPCS: 36415; 80053; 80061; 82306; 84443; 85025

== ENCOUNTER 2024-03-02 11:04 | Outpatient (REF) | payer MEDICARE, OTHER, SELFPAY ==
--- NOTE | ~2024-03-02 | CT_ITS ---
EXAMINATION: CT ABDOMEN AND PELVIS WITH CONTRAST CLINICAL INFORMATION: Left lower quadrant abdominal pain. Diverticulitis. COMPARISON: CT dated February 06, 2024. TECHNIQUE: Multidetector volumetric images were obtained from the superior aspect of the liver through the pubic symphysis following administration 85 mL of Omnipaque 350 intravenous contrast. Sagittal and coronal reformatted images were obtained on the technologist's workstation. Oral contrast: [address] examination was performed using dose optimization techniques as appropriate, variously including the following: *Automated exposure control *Adjustment of mA and/or kV according to patient size (this includes techniques or standardized protocols for targeted exams where dose is matched to indication/reason for exam; i.e. extremities or head) *Use of iterative reconstruction technique DLP: 428 mGy-cm FINDINGS: Submitted for interpretation on March 03, 2024. LUNG BASES: No acute airspace disease or gross pulmonary nodules. Centrilobular emphysematous changes. LIVER, GALLBLADDER, AND BILIARY TREE: Liver measures 15 cm no focal mass. Portal veins, hepatic veins and intrahepatic portion of the IVC are patent. Subtle nodular surface. No pericholecystic fluid collection or gallbladder wall thickening. No intrahepatic or extrahepatic biliary ductal dilatation. Common bile duct measures 4 m. PANCREAS: No focal mass. No peripancreatic fluid collection. No main pancreatic ductal dilatation. SPLEEN: 11 cm. No focal mass. ADRENAL GLANDS: No nodular lesion. KIDNEYS AND URETERS: 8 x 9 cm exophytic fluid density lesion, midportion to lower pole right kidney. No renal mass. No hydronephrosis. BLADDER: Fluid-filled. GASTROINTESTINAL TRACT: Numerous diverticula throughout the left hemicolon. Abundant stool within the large intestine. No intestinal obstruction pattern. No pericolonic edema pattern. No pneumatosis intestinalis. No ascites. No pneumoperitoneum. No peripheral enhancing fluid collection, peritoneal cavity. Terminal ileum is normal. I do not see the appendix. ABDOMINAL WALL: Small tiny fat-containing umbilical hernia. LYMPH NODES: No lymphadenopathy. VASCULAR: Mixed plaques throughout the abdominal aorta mesenteric vessels, main renal arteries, splenic artery, iliac arteries. No aneurysm or dissection, abdominal aorta. Inadequate evaluation of the iliac and femoral veins.. PELVIC VISCERA: Multifocal low-density nodular lesions with the partial air cells calcifications in the uterus, the largest measures 8 cm. OSSEOUS STRUCTURES: Multilevel thoracolumbar spondylosis more conspicuous at L2-3 and L3-4 levels. Grade 1 anterolisthesis L4-5 resulting in bilateral neuroforamina stenosis. Spina bifida occulta, S1. Osteopenia versus osteoporosis. S-shaped curvature of the lumbar spine. CT/CT abdomen pelvis w IV con IMPRESSION: Diverticular disease, sigmoid colon without intestinal obstruction pattern or peritoneal fluid collections nor pneumoperitoneum. Large, 9 cm exophytic cyst, right kidney. Atherosclerosis disease. Leyomyomata uteri ear Grade 1 anterolisthesis and a degenerative basis at L4-5. Multilevel thoracolumbar spondylosis. Fleischner guidelines were followed. Electronically signed by: Shaq Caballero MD 03/03/2024 09:13 AM RONEN
--- OUTSIDE RECORDS SUMMARY | 2024-03-02 11:07 | XMS_ITS ---
Author Organization [facility] Address [address] [facility] [address] [place] [id number] Care Team Providers Care Transformer Repairer Name Role Phone Dank Brown DO Primary Care Provider Unavail Dank Paul Unavailable [phone] REASON FOR VISIT diverticulitis Encounters Encounter Location Date Provider Diagnosis [facility] [address] [facility] [address] [place] [phone] 02/10/2024 Dank Murray PLAN OF TREATMENT Next Appt Details Provider Name:Dank Murray , 03/16/2024 08:30:00 AM, [address] [facility] , [place], [place], [phone],
--- OUTSIDE RECORDS SUMMARY | 2024-03-02 11:07 | XMS_ITS ---
Author Organization [facility] Address [address] [facility] [address] [place] [phone] Care Team Providers Care Instrumentation Technician Name Role Phone Dank Brown DO Primary Care Provider Unavail Dank Paul Unavailable [phone] REASON FOR VISIT DIVERTICULITIS-NEEDS REPEAT CT SCAN AND LABS PROBLEMS Problem Type ICD Code Onset Dates Problem Status W/U Status Risk SNOMED Code Notes Problem Diverticulitis of colon (K57.32) Active confirmed Diverticuliti s of colon (510347174) Problem Abdominal pain, acute, left lower quadrant (R10.32) Active confirmed Left lower quadrant pain (972751803) Encounters Encounter Location Date Provider Diagnosis [facility] [address] [phone] 02/19/2024 Dank Murray Diverticulitis of co naresh K57.32 and Abdominal pain, acute, left lower quadrant R10.32 ASSESSMENTS Encounter Date Diagnosis Assessment Notes Treatment Notes Treatment Clinical Notes 02/19/2024 Diverticulitis of colon (ICD-10 - K57.32) 02/19/2024 Abdominal pain, acute, left lower quadrant (ICD-10 - R10.32) PLAN OF TREATMENT Pending Test Test Name Order Date LIVER PROFILE 02/19/2024 CBC w DIFF 02/19/2024 CT ABD & PELVIS WITH CONTRAST 02/19/2024 Amylase 02/19/2024 Lipase 02/19/2024 Next Appt Details Provider Name:Dank Murray , 03/16/2024 08:30:00 AM, [address] [place] [address] , [place], [place], [phone],
--- OUTSIDE RECORDS SUMMARY | 2024-03-02 11:08 | XMS_ITS ---
Author Organization Dank Brown DO, FACP Address [address] [place], [place] [id number] Care Team Providers Care Security Professional Name Role Phone Dank Brown Primary Care Provider [phone] ALLERGIES Allergen (clinical drug ingredient) Drug/Non Drug Allergy documented on EMR Reaction Allergy Type Onset Date Status amoxicillin / clavulanate Augmentin rash Drug Allergy Active atorvastatin Atorvastatin Calcium muscle aches Drug Allergy Active REASON FOR VISIT 6 month f/u, Follow up Diverticulitis MEDICATIONS Medication SIG (Take, Route, Frequency, Duration) Notes Start Date End Date Status Gabapentin 300 MG 1 capsule at bedtime Orally Once a day for 90 days 02/19/2024 Active LORazepam 0.5 MG 1 tablet as needed O rally Once a day for 30 days 02/19/2024 Active Citalopram Hydrobromide 20 MG 1 tablet Orally Once a day Active Propranolol HCl 10 MG 1 tablet Orally Tw ice a day 08/30/2023 Active Omeprazole 20 MG 1 capsule Orally Twi ce a day Active Yuvafem 10 MCG 1 tablet Vaginal Twi ce a Week Active Cetirizine HCl 10 MG 1 tablet Orally Onc e a day Active SOCIAL HISTORY Tobacco Use: Social History Observation Description Date Details (start date - stop date) Former Smoker NA - NA Sex Assigned At : Social History Observation Description Sex Assigned At Unknown Tobacco Use/Smoking Question Answer Notes Patient is a former smoker How long has it been since y ou last smoked? > 10 years Additional Findings: Tobacco Non-User Fo rmer smoker, currently using no form of tobacco Alcohol Screen Question Answer Notes Did you have a drink contain ing alcohol in the past year? Yes How often did you have a dri nk containing alcohol in the past year? 2 to 3 times a week (3 points) How many drinks did you have on a typical day when you were drinking in the past year? 1 or 2 drinks (0 point) How often did you have 6 or more drinks on one occasion in the past year? Never (0 point) Points 3 Interpretation Positive VITAL SIGNS BMI 21.43 kg/m2 02/19/2024 Blood pressure systolic 122 mm Hg 02/19/20 24 Blood pressure diastolic 70 mm Hg 024 Height 63 in 02/19/2024 Weight 121 lbs 02/19/2024 Encounters Encounter Location Date Provider Diagnosis Dank Brown DO, [facility] [address] [place], [place] [phone] 02/19/2024 Dank Kevin Diverticulitis K57.9 2 ; Gastroesophageal reflux disease, unspecified whether esophagitis present K21.9 ; Reactive depression F32.9 ; Anxiety F41.9 and Essential hypertension I10 ASSESSMENTS Encounter Date Diagnosis Assessment Notes Treatment Notes Treatment Clinical Notes 02/19/2024 Diverticulitis (ICD- 10 - K57.92) CT scan revealed abundant stool. Use MOM to clear out the colon 02/19/2024 Gastroesophageal ref lux disease, unspecified whether esophagitis present (ICD-10 - K21.9) 02/19/2024 Reactive depression (ICD-10 - F32.9) 02/19/2024 Anxiety (ICD-10 - F41.9) 02/19/2024 Essential hypertensi on (ICD-10 - I10) PLAN OF TREATMENT Medication Medication Name Sig Start Date Stop Date Notes Gabapentin 300 MG 1 capsule at bedtime Orally Once a day for 90 days 02/19/2024 LORazepam 0.5 MG 1 tablet as needed O rally Once a day for 30 days 02/19/2024 Citalopram Hydrobromide 20 MG 1 tablet Orally Once a day Propranolol HCl 10 MG 1 tablet Orally Twice a day 08/30/19 Omeprazole 20 MG 1 capsule Orally Twice a day Yuvafem 10 MCG 1 tablet Vaginal Twi ce a Week Cetirizine HCl 10 MG 1 tablet Orally Once a day Treatment Notes Assessment Notes Diverticulitis CT scan revealed abu ndant stool. Use MOM to clear out the colon Next Appt Details Follow Up: 2 Months, Reason: follow up visit Provider Name:Dank mai, 04/22/2024 01:30:00 PM, [address] [place] [address], [phone], Progress Notes * Examination Category Sub-Category Detail Notes General Examination GENERAL APPEARANCE: in no ac es distress, well developed, well nourished HEAD: normocephalic, atrau matic HEART: no murmurs, regular rate and rhythm, S1, S2 normal LUNGS: clear to auscultatio n bilaterally ABDOMEN: bowel sounds hyperac tive, soft, nontender, nondistended SKIN: warm and dry EXTREMITIES: no edema PSYCH: alert, oriented, cog nitive function intact
--- OUTSIDE RECORDS SUMMARY | 2024-03-02 11:08 | XMS_ITS ---
Author Organization [facility] Address [address] [facility] [address] [place] [phone] Care Team Providers Care Prisoner Classification Interviewer Name Role Phone Dank Brown DO Primary Care Provider Unavail able Dank Murray Unavailable [phone] REASON FOR VISIT would like sooner colonoscopy/has symptoms/ left vm for her what you suggested Encounters Encounter Location Date Provider Diagnosis [facility] [address] [facility] [address] [place] [phone] 02/05/2024 Dank Murray PLAN OF TREATMENT Next Appt Details Provider Name:Dank Murray , 03/16/2024 08:30:00 AM, [address] [place] [address] , [place], [place], [phone],
--- OUTSIDE RECORDS SUMMARY | 2024-03-02 11:08 | XMS_ITS | Patient Health Record ---
Author Organization [facility] Address [address] [place] [address] Care Team Providers Care Ship Joiner Name Role Phone Dank Brown DO Primary Care Provider Unavail able Dank Murray Unavailable [phone] RESULTS Component Value Reference Range Notes Amylase Reviewed date:11/12/2023 11:06:10 PM Interpretation: Performing Lab:[facility], [address] [place] [phone] Notes/Report: Amylase 36 28-100 U/L Lipase Reviewed date:11/12/2023 11:06:02 PM Interpretation: Performing Lab:[facility], [address] [place] [phone] Notes/Report: Lipase 22 8-78 U/L Calprotectin, Fecal Reviewed date:11/19/2023 11:05:17 AM Interpretation: Performing Lab:[facility], [address] [place] [phone] Notes/Report: Calprotectin, Fecal 6 Reference Range: <50 Normal 50-120 Borderline >120 Elevated Calprotectin in Crohn's disease and ulcerative colitis can be five to several thousand times above the reference population (50 mcg/g or less). Levels are usually 50 mcg/g or less in healthy patients and with irritable bowel syndrome. Repeat testing in 4-6 weeks is suggested for borderline values. THIS TEST WAS PERFORMED AT: [facility] [address] [place] [address] CHAD DUENAS MD,PHD,MARTIR GI PANEL Reviewed date:11/13/2023 06:51:14 PM Interpretation: Performing Lab:[address] [phone] Notes/Report: Campylobacter Not Detected Not Detect. Plesiomonas shigelloides Not Detected Not Detect. Salmonella Not Detected Not Detect. Vibrio Not Detected Not Detect. Vibrio Cholerae Not Detected Not Detect. Yersinia enterocolitica Not Detected Not Detect. E. coli EAEC Not Detected Not Detect. E. coli EPEC Detected Not Detect. E. coli ETEC Not Detected Not Detect. E. coli STEC Not Detected Not Detect. E. coli O157 Not applicable Not Detect. E. coli containing the O157 antigen are a subset of Shiga-like toxin-producing E. coli (STEC). Shigella sp./EIEC Not Detected Not Detect. Cryptosporidium Not Detected Not Detect. Cyclospora cayetanensis Not Detected Not Detect. Entamoeba histolytica Not Detected Not Detect. Giardia lamblia Not Detected Not Detect. Adenovirus F 40/41 Not Detected Not Detect. Astrovirus Not Detected Not Detect. Norovirus GI/GII Not Detected Not Detect. Rotavirus A Not Detected Not Detect. Sapovirus Not Detected Not Detect. All results must be correlated with clinical findings. Negative results do not exclude the possibility of gastrointestinal infection and should not be used as the sole basis for diagnosis, treatment, or other management decisions. Virus, bacteria, and parasite nucleic acid may persist in vivo independently of organism viability. Additionally, some organisms may be carried symptomatically. Detection of organism targets does not imply that the corresponding organisms are infectious or are the causative agents for clinical symptoms. There is a risk of false negative values due to the presence of sequence variants in the gene targets of the assay, amplification inhibitors in specimens, or inadequate numbers of organisms for amplification. The identification of several diarrheagenic E. coli pathotypes has historically relied upon phenotypic characteristics. This panel targets genetic determinants characteristic of most pathogenic strains, but may not detect all strains having phenotypic characteristics of a pathotype. The performance of this test has not been established for monitoring treatment of infection with any of the panel organisms. This assay is performed by Multiplexed PCR, utilizing the Risk Ident Array. Complete Blood Count Auto Di ff Reviewed date:11/12/2023 11:04:48 PM Interpretation: Performing Lab:[address] [place] [address] Notes/Report: White Blood Count 6.5 4.8-10.8 X10*3/uL Red Blood Count 4.53 4.20-5.50 X10*6/uL Hemoglobin 14.6 12.0-16.0 g/dl Hematocrit 42.5 37.0-47.0 % Mean Corpuscular Volume 93.8 80.0-98.0 fL Mean Corpuscular Hemoglobin 32.2 27.0-33.0 pg Mean Corpuscular HGB Conc 34.4 31.0-35.0 g/dl Red Cell Distribution Width 12.6 11.0-16.0 % Platelet Count 243 160-400 X10*3/uL Mean Platelet Volume 9.7 9.4-12.3 fL Neutrophils Percent Auto 66.4 45-73 % Imm Gran Pct Auto 0.2 0.0-0.4 % Lymphocytes Percent Auto 23.0 20-40 % Monocytes Percent Auto 8.4 2-11 % Eosinophils Percent Auto 1.4 0-4 % Basophils Percent Auto 0.6 0-2 % NRBC Pct Auto 0.0 0.0-0.2 /100WBC Neutrophils Absolute Auto 4.3 2.0-8.3 x10*3/u L Imm Gran Abs Auto 0.01 0.00-0.03 X10*3/uL Lymphocytes Absolute Auto 1.5 1.2-4.9 X10*3/u L Monocytes Absolute Auto 0.6 0.1-1.2 X10*3/uL Eosinophils Absolute Auto 0.1 0.0-0.4 X10*3/u L Basophils Absolute Auto 0.0 0.0-0.2 X10*3/uL NRBC Abs Auto 0.000 0.0-0.012 X10*3/uL Erythrocyte Sedimentation Ra te Reviewed date:11/12/2023 11:05:53 PM Interpretation: Performing Lab:[facility], [address] [place] [phone] Notes/Report: Erythrocyte Sedimentation Rate 14 0-20 MM/HR Patients with polycythemia and many hemoglobin abnormalities may have depressed sed rates whereas patients with anemia may have elevated sed rates. Leukocytes Stool Qualitative Reviewed date:11/12/2023 11:04:30 PM Interpretation: Performing Lab:[facility], [address] [place] [phone] Notes/Report: Leukocytes Stool Qualitative NEGATIVE NEGATIVE Liver Panel Reviewed date:11/12/2023 11:04:58 PM Interpretation: Performing Lab:[facility], [address] [place] [phone] Notes/Report: Bilirubin Total 0.6 0.0-1.0 mg/dL Bilirubin Direct 0.2 0.0-0.5 mg/dL Aspartate Amino Transferase 22 5-31 U/L Alanine Aminotransferase 20 0-31 U/L Total Protein 6.9 6.5-8.0 g/dL Albumin Level 4.1 3.5-5.0 g/dL Alkaline Phosphatase 62 39-117 U/L Basic Metabolic Panel Reviewed date:11/12/2023 11:05:31 PM Interpretation: Performing Lab:[facility], [address] [place] [phone] Notes/Report: Sodium 139 135-145 mmol/L Potassium 4.4 3.3-5.1 mmol/L Chloride 103 96-108 mmol/L Carbon Dioxide 32 22-29 mmol/L Anion Gap 8 12-20 Blood Urea Nitrogen 10 9-16 mg/dL Creatinine 0.74 0.5-1.4 mg/dL Estimated Glomerular Filt Rate > 60 NOTE: For -Ukrainian individuals, multiply the result by 1.210. Chronic Kidney Disease: Estimated GFR < 60 mL/min/1.73m2 Severe Kidney Disease: Estimated GFR < 15 mL/min/1.73m2 Glucose Random 115 60-115 mg/dL Calcium 9.4 8.4-10.2 mg/dL C Reactive Protein Reviewed date:11/12/2023 11:05:41 PM Interpretation: Performing Lab:[facility], [address] [place] [phone] Notes/Report: C Reactive Protein 2.71 < or = 0.50 mg/dL CDiff Gene PCR Reviewed date:11/13/2023 06:13:34 PM Interpretation: Performing Lab:[facility], [address] [place] [phone] Notes/Report: CDiff Gene PCR NEGATIVE Negative If C. difficile strongly suspected despite one negative test, a second test may be sent vs. empiric treatment for C. difficile infection. MR abdomen wo/w con Reviewed date:12/06/2023 06:51:23 PM Interpretation: Performing Lab: Notes/Report: [address] [address] Magnetic Resonance Report Signed Patient: Denisse Bush MR#: [id number] : 1945 Acct:[id number] Age/Sex: 78 / F ADM Date: 11/23/23 Loc: HO.MRI Attending Dr: Dank Murray MD Ordering Physician: Dank Murray MD Date of Service: 11/23/23 Procedure(s): MR abdomen wo/w con Accession Number(s): [id number] cc: Dank Brown DO; Dank Murray MD EXAMINATION: MR ABDOMEN WITHOUT AND WITH CONTRAST CLINICAL INFORMATION: IPMN COMPARISON: MRI abdomen 11/30/2022 TECHNIQUE: MRI of the abdomen before and after the IV administration of 5 mL of Gadavist was obtained using routine sequences. FINDINGS: LUNG BASES: The visualized lung bases are unremarkable. KIDNEYS AND URETERS: Mild right hydronephrosis similar to prior. Large 10.4 cm Bosniak 1 right renal cyst, no imaging follow-up recommended. GALLBLADDER: Unremarkable. LIVER AND BILIARY TREE: The liver is normal in signal and morphology. No intra or extrahepatic biliary duct dilatation or intraluminal filling defect to suggest choledocholithiasis. PANCREAS: 0.8 cm T2 bright lesion in the pancreatic body, previously 0.7 cm a few stable additional smaller tiny pancreatic cysts, unchanged from prior see mcgee images no pancreatic duct dilatation or suspicious enhancing solid nodules.. SPLEEN: Unremarkable ADRENAL GLANDS: Unremarkable GASTROINTESTINAL TRACT: Small hiatal hernia. Colonic diverticulosis without evidence of diverticulitis. LYMPH NODES: No lymphadenopathy. VASCULAR: Unremarkable ABDOMINAL WALL: Unremarkable. OSSEOUS STRUCTURES: Multilevel degenerative disc disease. OTHER: Myomatous uterus partially imaged. MR/MR abdomen wo/w con IMPRESSION: 1. Few subcentimeter pancreatic cysts the largest measuring 0.8 cm not significantly changed from prior. No high risk stigmata. Recommend every other year follow-up with contrast enhanced MR or CT pancreas protocol x5 for a total of 10 years of documented stability. If the patient reaches 80 years of age before the end of follow-up, follow-up should generally stop. 2. Mild right hydronephrosis similar to prior. 3. Small hiatal hernia. 4. Myomatous uterus partially imaged. 5. Large 10.4 cm Bosniak 1 right renal cyst, no imaging follow-up recommended. 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: REASON FOR REFERRAL No Information MEDICATIONS Medication SIG (Take, Route, Frequency, Duration) Notes Start Date End Date Status Yuvafem 10 MCG USE 1 TABLET VAGINAL LY EVERY SATURDAY, SATURDAY AND SATURDAY Vaginal for 84 Active Propranolol HCl 10 MG 1 tablet Oral once a day Active Citalopram Hydrobromide 20 MG TAKE 1 TABLET BY MOUTH ONCE A DAY Oral for 90 Active ZyrTEC Allergy 10 MG 1 tablet Orally Onc e a day 04/18/2016 Active Omeprazole 20 MG 1 capsule 30 minutes before morning meal Orally Once a day Active Cipro 500 MG 1 tablet Orally ever y 12 hrs for 5 days 11/14/2023 Active IMMUNIZATIONS Vaccine Route Administration Date Status Comme nts Flu vaccine no Preserv 3 and > Unknown 04/18/2016 Admin istered Influenza Unknown 01/04/2021 Administered SOCIAL HISTORY Sex Assigned At : Social History Observation Description Sex Assigned At Unknown Alcohol Screen Question Answer Notes Did you have a drink contain ing alcohol in the past year? Yes How often did you have a dri nk containing alcohol in the past year? 4 or more times a week (4 points) How many drinks did you have on a typical day when you were drinking in the past year? 1 or 2 drinks (0 point) How often did you have 6 or more drinks on one occasion in the past year? Never (0 point) Points 4 Interpretation Positive PROBLEMS Problem Type ICD Code Onset Dates Problem Status W/U Status Risk SNOMED Code Notes Problem Gastroesophageal reflux disease without esophagitis (K21.9) Active confirmed 685269319 Problem Encounter for screening for malignant neoplasm of colon (Z12.11) Active confirmed 923350335 Problem Encounter for screening for malignant neoplasm of rectum (Z12.12) Active confirmed Screening for malignant neoplasm of rectum (031584791) Problem History of adenomatous polyp of colon (Z86.010) Active confirmed 974135200 Problem Diarrhea of presumed infectious origin (A09) Active confirmed 08147133 Problem Diarrhea (R19.7) Active confirmed 70405 008 Problem History of Clostridium difficile (Z87.19) Active confirmed 090237060 Problem IPMN (intraductal papillary mucinous neoplasm) (D49.0) Active confirmed 32947314 Problem Diverticulitis (K57.92) Active confirmed Diverticulitis (572636603) Problem Diverticulosis of colon (K57.30) Active confirmed Diverticulosi s of colon (780025127) Problem Gastroesophageal reflux (K21.9) Active confirmed Esophageal re flux finding (876553333) Problem Serrated polyp of colon (K63.5) Active confirmed Serrated polyp of colon (949984084) Problem Family history of malignant neoplasm of colon in first degree relative diagnosed when younger than 60 years of age (Z80.0) Active confirmed Family history of malignant neoplasm of gastrointestinal tract (533898530) Problem Abdominal pain (R10.9) Active confirmed Abdominal pain (66163972) Problem Diverticulitis of colon (K57.32) Active confirmed Diverticuliti s of colon (376028701) Problem Abdominal pain, acute, left lower quadrant (R10.32) Active confirmed Left lower quadrant pain (196508907) VITAL SIGNS Blood pressure diastolic 00 mm Hg 10/29/2023 Height 64 in 10/29/2023 Blood pressure systolic 00 mm Hg 10/29/2023 Weight 122 lbs 10/29/2023 BMI 20.94 kg/m2 10/29/2023 Encounters Encounter Location Date Provider Diagnosis [facility] [address] [place] [address] 10/29/2023 Dank Murray Gastroesophageal ref lux disease without esophagitis K21.9 ; Encounter for screening for malignant neoplasm of colon Z12.11 ; History of adenomatous polyp of colon Z86.010 ; IPMN (intraductal papillary mucinous neoplasm) D49.0 ; Serrated polyp of colon K63.5 and Family history of malignant neoplasm of colon in first degree relative diagnosed when younger than 60 years of age Z80.0 [facility] [address] [place] [address] 11/11/2023 Dank Murray Diarrhea R19.7 and Abdominal pain R10.9 [facility] [address] [place] [address] 11/11/2023 Dank Murray [facility] [address] [place] [address] 11/13/2023 Dank Murray [facility] [address] [place] [address] 11/22/2023 Dank Murray [facility] [address] [place] [address] 12/02/2023 Dank Murray [facility] [address] [place] [address] 02/05/2024 Dank Murray [facility] [address] [place] [address] 02/10/2024 Dank Murray [facility] [address] [place] [address] 02/19/2024 Dank Murray Diverticulitis of co naresh K57.32 and Abdominal pain, acute, left lower quadrant R10.32 ASSESSMENTS Encounter Date Diagnosis Assessment Notes Treatment Notes Treatment Clinical Notes 10/29/2023 Encounter for screen ing for malignant neoplasm of colon (ICD-10 - Z12.11) 10/29/2023 Gastroesophageal ref lux disease without esophagitis (ICD-10 - K21.9) 11/11/2023 Abdominal pain (ICD- 10 - R10.9) 11/11/2023 Diarrhea (ICD-10 - R19.7) 02/19/2024 Diverticulitis of co naresh (ICD-10 - K57.32) 02/19/2024 Abdominal pain, acut e, left lower quadrant (ICD-10 - R10.32) 10/29/2023 History of adenomato us polyp of colon (ICD-10 - Z86.010) 10/29/2023 IPMN (intraductal papillary mucinous neoplasm) (ICD-10 - D49.0) 10/29/2023 Serrated polyp of co naresh (ICD-10 - K63.5) 10/29/2023 Family history of malignant neoplasm of colon in first degree relative diagnosed when younger than 60 years of age (ICD-10 - Z80.0) PLAN OF TREATMENT Pending Test Test Name Order Date CHEM 7 PROFILE 11/11/2023 BUN 10/29/2023 BUN 10/23/2022 LIVER PROFILE 11/11/2023 LIVER PROFILE 02/19/2024 CRP 11/11/2023 CBC w DIFF 02/19/2024 CBC w DIFF 11/11/2023 SED RATE (ESR) 11/11/2023 CLOSTRIDIUM DIFF TOXIN A&B (C DIFF) 05/17 STOOL WBC 06/13/2016 CA 19-9 10/29/2023 CA 19-9 07/21/2021 CA 19-9 10/23/2022 CT ABD & PELVIS WITH CONTRAST 02/19/2024 MRI ABD W&WO CONTRAST 10/29/2023 MRI ABD W&WO CONTRAST 10/23/2022 STOOL WBC 11/11/2023 C DIFFICILE RFLX PCR 11/11/2023 Creatinine 10/23/2022 Creatinine 10/29/2023 Amylase 07/21/2021 Amylase 02/19/2024 Lipase 07/21/2021 Lipase 02/19/2024 Future Test Test Name Order Date COLONOSCOPY 04/18/2016 UPPER GI ENDOSCOPY 07/21/2021 COLONOSCOPY 07/21/2021 UPPER GI ENDOSCOPY 10/29/2023 COLONOSCOPY 10/29/2023 Next Appt Details Provider Name:Dank Murray , 03/16/2024 08:30:00 AM, [address] [place] [address] , [place], [place], [id number], Insurance Providers Payer Name Payer Address Payer Phone Subscriber Number Group Number Insured Name Patient Relationship to Insured Coverage Start Date Coverage End Date MEDICARE OF [place] [address] [place] [phone] [id number] DENISSE BUSH Self - patient is the insured [employer] ([employer] [address] [place], [place] [id number] DENISSE BUSH Self - patient is the insured MEDICAL (GENERAL) HISTORY Medical History History ICD Code Screening colonoscopy in Jan--small tubular adenomas, diverticulosis GERD--small HH-EGD in 1-no esophagitis nor Marr's esophagus; EGD in August of 2021 revealed a small hiatal hernia, but no evidence of any esophagitis nor Marr's esophagus Denies [place],DM,CVA,Lung disease,renal dise ase Anxiety Hyperlipidemia C.diff infection in 2016 Negative colonoscopy in 07/[address] scan in 05/2021 at [facility]-treated with outpatient antibiotics IPMN seen on CT in 05/2021; stable MRI in November of 2022 Screening colonoscopy in Aug revealed a serrated polyp of the cecum that was removed, as well as other relatively small tubular adenomas Emphysema noted on CT of chest 2022-foll owed by Dr. Story Seeing Dr. Santos in Se ptember of 2023 for some possible cardiac testing; she does describe a negative cardiac workup in [facility] in approximately 2021 Surgical History Surgery Date(Month/Year) Back surgery for disc disease x 2 Tubal ligation Tonsillectomy and adenoidectomy Appy
--- OUTSIDE RECORDS SUMMARY | 2024-03-02 11:08 | XMS_ITS | Patient Health Record ---
Author Organization Dank Brown DO, [facility] Address [address] [place] [phone] Care Team Providers Care Dogman/Woman Name Role Phone Dank Brown Primary Care Provider ALLERGIES Allergen (clinical drug ingredient) Drug/Non Drug Allergy documented on EMR Reaction Allergy Type Onset Date Status atorvastatin Atorvastatin Calcium muscle aches Drug Allergy Active amoxicillin / clavulanate Augmentin rash Drug Allergy Active RESULTS Component Value Reference Range Notes MAMMOGRAM, SCREENING Reviewed date:03/13/2023 12:12:10 PM Interpretation:Benign Performing Lab: Notes/Report: Benign Complete Blood Count Auto Di ff Reviewed date:08/23/2023 12:42:01 PM Interpretation:Normal Performing Lab:[facility], [address] [place] [phone] Notes/Report: White Blood Count 4.8 4.8-10.8 X10*3/uL Red Blood Count 4.55 4.20-5.50 X10*6/uL Hemoglobin 14.7 12.0-16.0 g/dl Hematocrit 40.7 37.0-47.0 % Mean Corpuscular Volume 89.5 80.0-98.0 fL Mean Corpuscular Hemoglobin 32.3 27.0-33.0 pg Mean Corpuscular HGB Conc 36.1 31.0-35.0 g/dl Red Cell Distribution Width 12.5 11.0-16.0 % Platelet Count 228 160-400 X10*3/uL Mean Platelet Volume 9.4 9.4-12.3 fL Neutrophils Percent Auto 53.9 45-73 % Imm Gran Pct Auto 0.0 0.0-0.4 % Lymphocytes Percent Auto 34.8 20-40 % Monocytes Percent Auto 8.8 2-11 % Eosinophils Percent Auto 1.7 0-4 % Basophils Percent Auto 0.8 0-2 % NRBC Pct Auto 0.0 0.0-0.2 /100WBC Neutrophils Absolute Auto 2.6 2.0-8.3 x10*3/u L Imm Gran Abs Auto 0.00 0.00-0.03 X10*3/uL Lymphocytes Absolute Auto 1.7 1.2-4.9 X10*3/u L Monocytes Absolute Auto 0.4 0.1-1.2 X10*3/uL Eosinophils Absolute Auto 0.1 0.0-0.4 X10*3/u L Basophils Absolute Auto 0.0 0.0-0.2 X10*3/uL NRBC Abs Auto 0.000 0.0-0.012 X10*3/uL Comprehensive Met. Panel Reviewed date:08/23/2023 12:42:01 PM Interpretation:Normal Performing Lab:[facility], [address] [place] [phone] Notes/Report: Sodium 142 135-145 mmol/L Potassium 3.5 3.3-5.1 mmol/L Chloride 106 96-108 mmol/L Carbon Dioxide 26 22-29 mmol/L Anion Gap 14 12-20 Blood Urea Nitrogen 13 9-16 mg/dL Creatinine 0.66 0.5-1.4 mg/dL Creatinine Clr Calc Pharmacy 59.9 Provided height and weight: 160.02 cm, 55.2 kg. eGFR (calculated from the MDRD study equation) and eCrCl (calculated from the Cockcroft-Gault equation) are based on different parameters and may not yield comparable results. If eCrCl result is absurd, please check patient's height/weight. Estimated Glomerular Filt Rate > 60 NOTE: For -Swiss individuals, multiply the result by 1.210. Chronic Kidney Disease: Estimated GFR < 60 mL/min/1.73m2 Severe Kidney Disease: Estimated GFR < 15 mL/min/1.73m2 Glucose Random 99 60-115 mg/dL Calcium 9.2 8.4-10.2 mg/dL Bilirubin Total 0.5 0.0-1.0 mg/dL Aspartate Amino Transferase 26 5-31 U/L Alanine Aminotransferase 17 0-31 U/L Total Protein 6.9 6.5-8.0 g/dL Albumin Level 4.2 3.5-5.0 g/dL Alkaline Phosphatase 56 39-117 U/L Magnesium Reviewed date:08/23/2023 12:42:01 PM Interpretation:Normal Performing Lab:[facility], [address] [place] [phone] Notes/Report: Magnesium 2.1 1.6-2.6 mg/dL Troponin-I High Sensitivity Reviewed date:08/23/2023 03:31:32 PM Interpretation:Normal Performing Lab:[facility], [address] [place] [phone] Notes/Report: Troponin-I High Sensitivity < 2.7 <3.5-17.0 ng/L [facility] high sensitivity Troponin-I results should be used in conjunction with other diagnostic information such as ECG, clinical observations and information, and patient symptoms to aid in the diagnosis of [place]. B Type Natriuretic Peptide Reviewed date:08/24/2023 10:59:13 AM Interpretation:Normal Performing Lab:[facility], [address] [place] [phone] Notes/Report: B Type Natriuretic Peptide 72 <100 pg/mL For those patients who are being treated with Natrecor (nesiritide, recombinant BNP), BNP testing should be performed at least two hours post treatment in order to ensure that only endogenous levels of BNP are detected. Lipase Reviewed date:08/23/2023 12:42:01 PM Interpretation:Normal Performing Lab:[address] [phone] Notes/Report: Lipase 34 8-78 U/L SARS-CoV2/FLU/RSV Reviewed date:08/23/2023 03:29:55 PM Interpretation:Negative Performing Lab:[address] [phone] Notes/Report: Influenza A PCR NEGATIVE Negative Influenza B PCR NEGATIVE Negative Resp Syncy Virus RNA Qual PCR NEGATIVE Negative SARS COV2 PCR INHOUSE NEGATIVE Negative All test results must be correlated with clinical findings. Negative results do not preclude SARS-CoV2, influenza A virus, influenza B virus and/or RSV infection and should not be used as the sole basis for treatment or other patient management decisions. Negative results must be combined with clinical observations, patient history, and epidemiological information. This test has not been evaluated for monitoring treatment of infection. This test has been authorized by the FDA under an Emergency Use Authorization (EUA) for use by authorized laboratories. Testing performed on the [employer] GeneXpert utilizing real-time RT-PCR. All SARS CoV2 and positive influenza A/B results are reported to [facility]. D Dimer High Sensitivity Reviewed date:08/24/2023 10:59:13 AM Interpretation:Normal Performing Lab:[facility], [address] [place] [phone] Notes/Report: D Dimer High Sensitivity < 150 D-DIMER HS REFERENCE RANGE Note: Our assay reports D-Dimer Units (D-DU). The cut-off value for venous thromboembolic (VTE) disease is 230 ng/mL. This value has a very high negative predictive value when the patient has a low to moderate clinical probability of VTE. The upper limit of normal is 243 ng/mL. XR chest 2V Reviewed date:08/23/2023 03:36:21 PM Interpretation:Nonacute Performing Lab: Notes/Report: [address] [address] XRay Report Signed Patient: Denisse Garcia MR#: [id number] : 1945 Acct:[id number] Age/Sex: 78 / F ADM Date: 08/23/23 Loc: .ED Attending Dr: Ordering Physician: Niyah Forrest CNP Date of Service: 08/23/23 Procedure(s): XR chest 2V Accession Number(s): [id number] cc: Niyah Forrest CNP; Dank Brown DO EXAMINATION: XR CHEST CLINICAL INFORMATION: Chest pain COMPARISON: Previous chest x-ray and chest CT from 2022 TECHNIQUE: 2 views of the chest were obtained. FINDINGS: The cardiac and mediastinal contours are stable. There is minimal scarring or subsegmental atelectasis in the right middle lobe. Lungs are otherwise clear. No pleural effusion or pneumothorax. Degenerative changes of the thoracic spine. XR/XR chest 2V IMPRESSION: No evidence for acute disease in the chest. Dictated By: Hannah Bone MD Signed By: <Electronically signed by Hannah Bone MD in OV> 08/23/23 1251 DD/ 1157 TD/TT: Blender Machine Operator: RENETTA Troponin-I High Sensitivity Reviewed date:08/24/2023 10:59:13 AM Interpretation:Normal Performing Lab:[address] [phone] Notes/Report: Troponin-I High Sensitivity < 2.7 <3.5-17.0 ng/L [facility] high sensitivity Troponin-I results should be used in conjunction with other diagnostic information such as ECG, clinical observations and information, and patient symptoms to aid in the diagnosis of [place]. Leukocytes Stool Qualitative Reviewed date:11/12/2023 10:26:48 PM Interpretation:Negative Performing Lab:[address] [phone] Notes/Report: Leukocytes Stool Qualitative NEGATIVE NEGATIVE Calprotectin, Fecal Reviewed date:11/18/2023 10:53:49 AM Interpretation:Normal Performing Lab:[address] [phone] Notes/Report: Calprotectin, Fecal 6 Reference Range: <50 [...] borderline values. THIS TEST WAS PERFORMED AT: [facility] [address] [place] [address] CHAD DUENAS MD,PHD,MARTIR GI Panel Reviewed date:11/13/2023 09:48:38 AM Interpretation:Positive Performing Lab:[address] [phone] Notes/Report: Campylobacter Not Detected Not Detect. Plesiomonas [...] is performed by Multiplexed PCR, utilizing the [employer] Array. CDiff Gene PCR Reviewed date:11/12/2023 10:26:48 PM Interpretation:Negative Performing Lab:[facility], [address] [place] [phone] Notes/Report: CDiff Gene PCR NEGATIVE Negative If C. difficile strongly suspected despite one negative test, a second test may be sent vs. empiric treatment for C. difficile infection. MR abdomen wo/w con Reviewed date:12/09/2023 11:22:06 AM Interpretation:Abnormal Performing Lab: Notes/Report: [address] [place] [address] Magnetic Resonance Report Signed Patient: Denisse Garcia MR#: [id number] : 1945 Acct:[id number] Age/Sex: 78 / F ADM Date: 11/23/23 Loc: HO.MRI Attending Dr: Dank Murray MD Ordering Physician: Dank Murray MD Date of Service: 11/23/23 Procedure(s): MR abdomen wo/w con Accession Number(s): [id number] cc: Dank Brown DO; Dank Murray MD [...] Lolita Begum MD 12/06/2023 03:19 PM EDT Dictated By: Lolita Begum MD Signed By: <Electronically signed by Lolita Begum MD in OV> 12/06/23 1519 DD/ 1310 TD/TT: 11/23/23 1338 Blender Machine Operator: FINA cardiolite stress test Reviewed date:12/15/2023 12:00:46 PM Interpretation:Abnormal Performing Lab: Notes/Report: [address] [address] Nuclear Medicine Report Signed Patient: Denisse Garcia MR#: [id number] : 1945 Acct:[id number] Age/Sex: 78 / F ADM Date: 12/11/23 Loc: .[facility] Attending Dr: Jean-Claude Rodriguez MD Ordering Physician: Jean-Claude Rodriguez MD Date of Service: 12/11/23 Procedure(s): GA cardiolite stress test Accession Number(s): [id number] cc: Dank Brown DO; Jean-Claude Rodriguez MD EXERCISE MYOCARDIAL PERFUSION STUDY INDICATION: Chest pain TECHNIQUE: The patient was brought in for an exercise perfusion study on 12/11/2023. Patient performed exercise as per Domenico protocol and was injected 25 mCi of sestamibi once target heart rate was achieved. Images were obtained using the SPECT gamma camera interlaced with the gating device. Images were obtained in supine position. Resting perfusion study was performed on 12/13/2023. Patient was administered 25 mCi of sestamibi intravenously at rest. Images were then obtained in supine position. Total DLP 74 mGy-cm. Images were processed with the software and compared side to side in short axis, horizontal long axis and vertical long axis views. FINDINGS: Raw aquisition reviewed. Prominent subdiaphragmatic uptake. The stress perfusion study showed diminished tracer uptake in the basal part of inferior wall. There is improvement with CT attenuation correction suggestive of diaphragmatic attenuation artifact. The gated study shows normal LV systolic function with calculated LVEF of 61%. LV cavity is normal in size. The gated study shows normal wall thickening and contraction of segments. Resting study shows diminished tracer uptake in the basal inferior wall. There is also adjacent subdiaphragmatic tracer uptake which could contribute to diminished inferior uptake. Gating at rest reveals normal wall motion with ejection fraction at 57%. The findings are consistent with mixed basal inferior perfusion defect, probably artifactual; could be related to subdiaphragmatic tracer uptake. NM/NM cardiolite stress test IMPRESSION: 1. Myocardial perfusion imaging study shows mixed basal inferior defect thought to be artifactual. Less likely true perfusion defect. 2. Gated LVEF is 61% during stress and 57% during rest. 3. Transient ischemic dilatation not present. EKG component of the test reported separately. Electronically signed by: Jean-Claude Rodriguez MD 12/15/2023 11:47 AM EDT RP Dictated By: Jean-Claude Rodriguez MD Signed By: <Electronically signed by Jean-Claude Rodriguez MD in OV> 12/15/23 1147 DD/ 1012 TD/TT: 12/13/23 1420 Blender Machine Operator: Complete Blood Count Auto Di ff Reviewed date:02/06/2024 11:16:11 AM Interpretation:Normal Performing Lab:[facility], [address] [place] [phone] Notes/Report: White Blood Count 8.7 4.8-10.8 X10*3/uL Red Blood Count 4.54 4.20-5.50 X10*6/uL Hemoglobin 14.5 12.0-16.0 g/dl Hematocrit 39.9 37.0-47.0 % Mean Corpuscular Volume 87.9 80.0-98.0 fL Mean Corpuscular Hemoglobin 31.9 27.0-33.0 pg Mean Corpuscular HGB Conc 36.3 31.0-35.0 g/dl Red Cell Distribution Width 12.6 11.0-16.0 % Platelet Count 286 160-400 X10*3/uL Mean Platelet Volume 9.1 9.4-12.3 fL Neutrophils Percent Auto 72.5 45-73 % Imm Gran Pct Auto 0.3 0.0-0.4 % Lymphocytes Percent Auto 17.0 20-40 % Monocytes Percent Auto 8.5 2-11 % Eosinophils Percent Auto 1.1 0-4 % Basophils Percent Auto 0.6 0-2 % NRBC Pct Auto 0.0 0.0-0.2 /100WBC Neutrophils Absolute Auto 6.3 2.0-8.3 x10*3/u L Imm Gran Abs Auto 0.03 0.00-0.03 X10*3/uL Lymphocytes Absolute Auto 1.5 1.2-4.9 X10*3/u L Monocytes Absolute Auto 0.7 0.1-1.2 X10*3/uL Eosinophils Absolute Auto 0.1 0.0-0.4 X10*3/u L Basophils Absolute Auto 0.1 0.0-0.2 X10*3/uL NRBC Abs Auto 0.000 0.0-0.012 X10*3/uL Liver Panel Reviewed date:02/06/2024 11:27:58 AM Interpretation:Normal Performing Lab:[address] [phone] Notes/Report: Bilirubin Total 0.6 0.0-1.0 mg/dL Bilirubin Direct 0.2 0.0-0.5 mg/dL Aspartate Amino Transferase 28 5-31 U/L Alanine Aminotransferase 31 0-31 U/L Total Protein 7.0 6.5-8.0 g/dL Albumin Level 4.1 3.5-5.0 g/dL Alkaline Phosphatase 86 39-117 U/L Basic Metabolic Panel Reviewed date:02/06/2024 11:27:58 AM Interpretation:Normal Performing Lab:[address] [address] Notes/Report: Sodium 139 135-145 mmol/L Potassium 3.9 3.3-5.1 mmol/L Chloride 104 96-108 mmol/L Carbon Dioxide 26 22-29 mmol/L Anion Gap 13 12-20 Blood Urea Nitrogen 13 9-16 mg/dL Creatinine 0.69 0.5-1.4 mg/dL Creatinine Clr Calc Pharmacy 57.4 Provided height and weight: 160.02 cm, 55.9 kg. eGFR (calculated from the MDRD study equation) and eCrCl (calculated from the Cockcroft-Gault equation) are based on different parameters and may not yield comparable results. If eCrCl result is absurd, please check patient's height/weight. Estimated Glomerular Filt Rate > 60 Chronic Kidney Disease: Estimated GFR < 60 mL/min/1.73m2 Severe Kidney Disease: Estimated GFR < 15 mL/min/1.73m2 Glucose Random 115 60-115 mg/dL Calcium 9.7 8.4-10.2 mg/dL Magnesium Reviewed date:02/06/2024 11:27:58 AM Interpretation:Normal Performing Lab:[facility], [address] [place] [phone] Notes/Report: Magnesium 2.1 1.6-2.6 mg/dL Troponin-I High Sensitivity Reviewed date:02/06/2024 11:39:29 AM Interpretation:Normal Performing Lab:[facility], [address] [place] [phone] Notes/Report: Troponin-I High Sensitivity < 2.7 <3.5-17.0 ng/L [facility] high sensitivity Troponin-I results should be used in conjunction with other diagnostic information such as ECG, clinical observations and information, and patient symptoms to aid in the diagnosis of [place]. Lipase Reviewed date:02/06/2024 11:27:58 AM Interpretation:Normal Performing Lab:[facility], [address] [place] [phone] Notes/Report: Lipase 27 8-78 U/L UA CC w/rflx Micro + Cult Reviewed date:02/06/2024 12:15:54 PM Interpretation:Negative Performing Lab:[facility], [address] [place] [phone] Notes/Report: [id number] Urine, Clean Catch Color Urine Yellow Appearance Urine Clear PH 8.0 5.0-9.0 Glucose Urine UA Negative Negative mg/dL Urine Blood Negative Negative Specific [place] - Urine 1.015 1.005-1.025 Urine Protein Negative Neg-Trace mg/dL Urine Ketones Negative Negative mg/dL Nitrite Urine Negative Negative Leukocyte Esterase Urine Negative Negative CT abdomen pelvis w con Reviewed date:02/07/2024 05:52:08 PM Interpretation:Abnormal Performing Lab: Notes/Report: [address] [address] [address] Scan Report Signed Patient: Denisse Garcia MR#: [id number] : 1945 Acct:[id number] Age/Sex: 78 / F ADM Date: 02/06/24 Loc: HO.ED Attending Dr: Ordering Physician: Gabby Rose DO Date of Service: 02/06/24 Procedure(s): CT abdomen pelvis w IV con Accession Number(s): [id number] cc: MiltonGabby DO; Dank Brown DO EXAMINATION: CT ABDOMEN AND PELVIS WITH CONTRAST CLINICAL INFORMATION: Lower abdominal pain. Vomiting. History of diverticulitis. COMPARISON: No prior CT. Correlated to MRI abdomen dated November 23, 2023. TECHNIQUE: Multidetector volumetric images were obtained from the superior aspect of the liver through the pubic symphysis following administration 85 mL of Omnipaque 350 intravenous contrast. Sagittal and coronal reformatted images were obtained on the technologist's workstation. Oral contrast: No This CT examination was performed using dose optimization techniques as appropriate, variously including the following: *Automated exposure control *Adjustment of mA and/or kV according to patient size (this includes techniques or standardized protocols for targeted exams where dose is matched to indication/reason for exam; i.e. extremities or head) *Use of iterative reconstruction technique DLP: 417 mGy-cm FINDINGS: LUNG BASES: Emphysematous changes without acute airspace disease in the included lung bases. LIVER, GALLBLADDER, AND BILIARY TREE: Liver measures 15 cm. No focal mass. Focal hypodensity adjacent to the falciform ligament likely fatty infiltration. Main portal veins, hepatic veins and intrahepatic portion of the IVC are patent. No intrahepatic or extra hepatic biliary ductal dilatation. No pericholecystic fluid collection or gallbladder wall thickening. PANCREAS: No focal pancreatic mass. No peripancreatic fluid collection. No main pancreatic ductal dilatation. SPLEEN: 10 cm. No focal mass. ADRENAL GLANDS: No nodular lesions. KIDNEYS AND URETERS: There is a large, 9 cm exophytic seen septated fluid density lesion in the right kidney extending into the right lower retroperitoneum. No gross renal mass or hydronephrosis. BLADDER: Fluid-filled. GASTROINTESTINAL TRACT: There is a segmental area of asymmetric wall thickening and narrowed lumen of the sigmoid colon with multiple diverticula. No pericolonic fluid collection or gross edema pattern. Abundant stool. Multiple diverticula throughout the transverse and left hemicolon. No intestinal obstruction pattern. No ascites. No pneumoperitoneum. No pneumatosis intestinalis. I do not see the appendix, though no pericecal edema pattern. ABDOMINAL WALL: Small tiny fat-containing umbilical hernia. LYMPH NODES: Prominent nonspecific lymph nodes, mesenteric. VASCULAR: Throughout the abdominal aorta wall and iliac arteries without aneurysm or dissection. PELVIC VISCERA: Heterogeneous partially calcified low density soft tissue lesions in the right and midline lower pelvis likely related to the uterus, the largest measures 7 cm and the small measures 2 cm. OSSEOUS STRUCTURES: Multilevel thoracolumbar spondylosis resulting in grade 1 anterolisthesis L4-5 with bilateral neuroforamina stenosis. S-shaped curvature of the thoracolumbar spine. No acute fracture. CT/CT abdomen pelvis w IV con IMPRESSION: Sigmoid colon diverticular disease noncomplicated diverticulitis cannot be entirely excluded. Bosniak type II cyst, right kidney. Atherosclerosis disease. Probable uterine fibroids. 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 Fleischner guidelines were followed. Electronically signed by: Shaq Caballero MD 02/06/2024 12:17 PM [facility] [place] Dictated By: Shaq Ha MD Signed By: <Electronically signed by Shaq Foss MD in OV> 02/06/24 1217 DD/ 1140 TD/TT: 02/06/24 1140 Blender Machine Operator: Complete Blood Count Auto Di ff Reviewed date:02/17/2024 11:06:04 AM Interpretation:Normal Performing Lab:[facility], [address] [place] [phone] Notes/Report: White Blood Count 5.9 4.8-10.8 X10*3/uL Red Blood Count 4.43 4.20-5.50 X10*6/uL Hemoglobin 14.0 12.0-16.0 g/dl Hematocrit 40.6 37.0-47.0 % Mean Corpuscular Volume 91.6 80.0-98.0 fL Mean Corpuscular Hemoglobin 31.6 27.0-33.0 pg Mean Corpuscular HGB Conc 34.5 31.0-35.0 g/dl Red Cell Distribution Width 12.4 11.0-16.0 % Platelet Count 270 160-400 X10*3/uL Mean Platelet Volume 9.1 9.4-12.3 fL Neutrophils Percent Auto 66.3 45-73 % Imm Gran Pct Auto 0.3 0.0-0.4 % Lymphocytes Percent Auto 23.1 20-40 % Monocytes Percent Auto 7.9 2-11 % Eosinophils Percent Auto 1.7 0-4 % Basophils Percent Auto 0.7 0-2 % NRBC Pct Auto 0.0 0.0-0.2 /100WBC Neutrophils Absolute Auto 3.9 2.0-8.3 x10*3/u L Imm Gran Abs Auto 0.02 0.00-0.03 X10*3/uL Lymphocytes Absolute Auto 1.4 1.2-4.9 X10*3/u L Monocytes Absolute Auto 0.5 0.1-1.2 X10*3/uL Eosinophils Absolute Auto 0.1 0.0-0.4 X10*3/u L Basophils Absolute Auto 0.0 0.0-0.2 X10*3/uL NRBC Abs Auto 0.000 0.0-0.012 X10*3/uL Comprehensive Opp. Panel Fa st Reviewed date:02/17/2024 12:01:37 PM Interpretation:Abnormal Performing Lab:[facility], [address] [place] [phone] Notes/Report: Sodium 140 135-145 mmol/L Potassium 3.9 3.3-5.1 mmol/L Chloride 105 96-108 mmol/L Carbon Dioxide 31 22-29 mmol/L Anion Gap 8 12-20 Blood Urea Nitrogen 15 9-16 mg/dL Creatinine 0.76 0.5-1.4 mg/dL Estimated Glomerular Filt Rate > 60 Chronic Kidney Disease: Estimated GFR < 60 mL/min/1.73m2 Severe Kidney Disease: Estimated GFR < 15 mL/min/1.73m2 Glucose Fasting 114 60-99 mg/dL A fasting glucose from 100-125 mg/dl is considered impaired (pre-diabetes). Calcium 8.8 8.4-10.2 mg/dL Bilirubin Total 0.5 0.0-1.0 mg/dL Aspartate Amino Transferase 29 5-31 U/L Alanine Aminotransferase 31 0-31 U/L Total Protein 6.8 6.5-8.0 g/dL Albumin Level 3.9 3.5-5.0 g/dL Alkaline Phosphatase 90 39-117 U/L Lipid Panel Reviewed date:02/17/2024 12:01:37 PM Interpretation:Normal Performing Lab:[facility], [address] [place] [phone] Notes/Report: Triglycerides 136 <150 mg/dL Desirable Triglyceride: less than 150 mg/dL Borderline High Triglyceride 150-199 mg/dL High Triglyceride: 200-499 mg/dL Very High Triglyceride: greater than or equal to 5OO mg/dL Cholesterol 212 <200 mg/dL Desirable Cholesterol: less than 200 mg/dL Borderline High Cholesterol: 200-239 mg/dL High Cholesterol: greater than 239 mg/dL LDL Cholesterol Calculated 128 <100 mg/dL Desirable LDL: less than 100 mg/dL Near Optimal/Above Optimal LDL: 110-129 mg/dL Borderline High LDL: 130-159 mg/dL High LDL: 160-189 mg/dL Very High LDL: greater than or equal to 190 mg/dL HDL Cholesterol 57 >40 mg/dL Desirable HDL: greater than 40 mg/dL Note: This HDL assay may give artificially low results in patients with liver disease. Vitamin D 25-OH Total Reviewed date:02/17/2024 12:01:38 PM Interpretation:Normal Performing Lab:[facility], [address] [place] [phone] Notes/Report: Vitamin D 25-OH Total 35.2 >30 ng/mL Health Based Reference Values* < 20 ng/mL Deficient 20-30 ng/mL Insufficient > 30 ng/mL Sufficient *Reid ELLIOTT. N Engl J Med. 2007;357:266-280 Care must be taken in interpreting Vitamin D results from different laboratories and methodologies. Published data demonstrated that results from patients undergoing hemodialysis may show a negative bias when tested with various automated 25-OH vitamin D assays when compared to LC-MS/MS. When testing samples from patients whose predominant form of Vitamin D is Vitamin D2, such as patients receiving Vitamin D2 supplementation, results that are subtherapeutic should be confirmed with another method such as LC-MS/MS. Thyroid Stimulating Hormone Reviewed date:02/17/2024 12:01:38 PM Interpretation:Normal Performing Lab:[facility], [address] [place] [phone] Notes/Report: Thyroid Stimulating Hormone 2.74 0.32-4.0 uIU/mL Note: A sustained TSH level above 2.5 uIU/mL may warrant further investigation. TSH 3rd Generation ([facility]) REASON FOR REFERRAL Reason Hearing evaluation Diagnosis 1 Encounter for examin ation of ears and hearing without abnormal findings (Z01.10) Referral Organization Dank Bowen FACP Referring Provider First Name Dank Referring Provider Last Name Kevin Referring Provider Speciality Internal edicine Referred Provider Linda Chambers Referred Provider Specialty Audiologists General Notes Annie Guidry 02:35:12 PM EDT > Referral and notes faxed Referral Priority Routine Referral Appointment Date 07/25/2023 Reason Chest pain on exerti on Diagnosis 1 Chest pain on exerti on (R07.9) Referral Organization Dank Bowen FACP Referring Provider First Name Dank Referring Provider Last Name Kevin Referring Provider Speciality Internal edicine Referred Provider Armen Rodriguez Referred Provider Specialty Cardiovascul ar Disease General Notes Rachael Bass 024 08:55:44 AM EDT > REFERRAL FOR TRANSFER OF CARE TO DR. RODRIGUEZ (a family member had a very good experience with him). Additional records to follow by separate fax., Rachael Bass 08/16/2023 08:57:44 AM EDT > referral faxed. Specialist's office notified referral to Dr. Rodriguez only. They will call this office with appointment date and time. Referral Priority Routine Referral Appointment Date 11/26/2023 MEDICATIONS Medication SIG (Take, Route, Frequency, Duration) Notes Start Date End Date Status Gabapentin 300 MG 1 capsule at bedtime Orally Once a day for 90 days 02/19/2024 Active LORazepam 0.5 MG 1 tablet as needed O rally Once a day for 30 days 02/19/2024 Active Yuvafem 10 MCG 1 tablet Vaginal Twi ce a Week Active Cetirizine HCl 10 MG 1 tablet Orally Onc e a day Active Citalopram Hydrobromide 20 MG 1 tablet Orally Once a day Active Propranolol HCl 10 MG 1 tablet Orally Tw ice a day for 90 days Active Omeprazole 20 MG 1 capsule Orally Twi ce a day Active IMMUNIZATIONS Vaccine Route Administration Date Status Comme nts Td (adult) Unknown 11/20/2001 Administered TDaP IM Intramuscular 08/05/2012 Administered Pneumococcal - PPSV23 Unknown 08/20/2012 Administered Zoster Vaccine Unknown 08/20/2012 Administered Influenza Unknown 01/27/2013 Administered Influenza Unknown 12/31/2013 Administered Influenza High Dose IM Intramuscular 01/04/2015 Administer ed Influenza High Dose IM Intramuscular 01/04/2016 Administer ed Influenza Quad IM Intramuscular 11/29/2016 Administered Influenza High Dose IM Intramuscular 12/31/2017 Administer ed PCV 13 IM Intramuscular 12/21/2018 Administered Influenza High Dose IM Intramuscular 12/21/2018 Administer ed Influenza High Dose IM Intramuscular 12/07/2019 Administer ed Influenza High Dose IM Intramuscular 12/07/2020 Administer ed COVID-19 Pfizer BioNTech Unknown 12/17/2020 Administere d COVID-19 Pfizer BioNTech Unknown 06/11/2020 Administere d COVID-19 Pfizer BioNTech Unknown 05/21/2020 Administere d Flu-aIIV4 Unknown 12/07/2020 Administered COVID-19 Pfizer BioNTech Unknown 07/10/2021 Administere d COVID-19 Pfizer Bivalent Unknown 12/18/2021 Administere d Influnza High Dose Quad Unknown 12/18/2021 Administered Influnza High Dose Quad Unknown 02/04/2023 Administered Influenza High Dose Unknown 11/26/2023 Administered SOCIAL HISTORY Tobacco Use: Social History Observation [...] Never (0 point) Points 3 Interpretation Positive PROBLEMS Problem Type ICD Code Onset Dates Problem Status W/U Status Risk SNOMED Code Notes Problem Anxiety (F41.9) Active confirmed 332755 02 Problem Essential hypertensi on (I10) Active confirmed 47182188 Problem Neck pain (M54.2) Active confirmed 8168 0005 Problem Dizziness (R42) Active confirmed 935578 003 Problem Bronchiectasis witho ut complication (J47.9) Active confirmed 09488616 Problem Reactive depression (F32.9) Active confirmed 53550550 Problem Psychophysiological insomnia (F51.04) Active confirmed 582702457 Problem Acute left-sided low back pain without sciatica (M54.5) Active confirmed 058896459 Problem Hypercholesterolemia (E78.00) Active confirmed 74883291 Problem Diverticulitis (K57.92) Active confirmed 487511608 Problem Gastroesophageal ref lux disease, unspecified whether esophagitis present (K21.9) Active confirmed 705600989 VITAL SIGNS Heart Rate 62 /min 08/30/2023 Blood pressure diastolic 70 mm Hg 02/19/2024 Height 63 in 02/19/2024 Blood pressure systolic 122 mm Hg 02/19/2024 Weight 121 lbs 02/19/2024 BMI 21.43 kg/m2 02/19/2024 Encounters Encounter Location Date Provider Diagnosis Dank Brown DO, [facility] [address], [place] [id number] 08/14/2023 Dank Brown Gastroesophageal ref lux disease, unspecified whether esophagitis present K21.9 ; Hypercholesterolemia E78.00 ; Anxiety F41.9 and Chest pain on exertion R07.9 Dank Brown DO, [facility] [address], [place] [id number] 02/19/2024 Dank Brown Diverticulitis K57.9 2 ; Gastroesophageal reflux disease, unspecified whether esophagitis present K21.9 ; Reactive depression F32.9 ; Anxiety F41.9 and Essential hypertension I10 Dank Brown DO, [facility] [address], [place] [id number] 04/16/2023 Dank Brown DO, [facility] [address], [place] [id number] 05/03/2023 Dank Brown DO, [facility] [address], [place] [id number] 05/07/2023 Dank Brown DO, [facility] [address], [place] [id number] 05/07/2023 Dank Brown DO, [facility] [address], [place] [id number] 05/15/2023 Dank Brown DO, [facility] [address], [place] [id number] 08/27/2023 Dank Brown DO, [facility] [address], [place] [id number] 10/14/2023 Dank Brown DO, [facility] [address], [place] [id number] 02/05/2024 Dank Brown DO, [facility] [address], [place] [id number] 08/30/2023 Dank Kevin Essential hypertensi on I10 ; Hypercholesterolemia E78.00 ; Gastroesophageal reflux disease, unspecified whether esophagitis present K21.9 and Anxiety F41.9 Dank Brown DO, [facility] [address], [place] [id number] 04/17/2023 Dank Brown Otitis, left H66.92 and Anxiety F41.9 ASSESSMENTS Encounter Date Diagnosis Assessment Notes Treatment Notes Treatment Clinical Notes 08/14/2023 Hypercholesterolemia (ICD-10 - E78.00) 08/14/2023 Gastroesophageal ref lux disease, unspecified whether esophagitis present (ICD-10 - K21.9) Denisse had a normal nuclear stress perfusion test last year 02/19/2024 Diverticulitis (ICD- 10 - K57.92) CT scan revealed abundant stool. Use MOM to clear out the colon 02/19/2024 Gastroesophageal ref lux disease, unspecified whether esophagitis present (ICD-10 - K21.9) 08/30/2023 Essential hypertensi on (ICD-10 - I10) 08/30/2023 Hypercholesterolemia (ICD-10 - E78.00) 04/17/2023 Anxiety (ICD-10 - F41.9) 04/17/2023 Otitis, left (ICD-10 - H66.92) 08/14/2023 Anxiety (ICD-10 - F41.9) 02/19/2024 Reactive depression (ICD-10 - F32.9) 08/30/2023 Gastroesophageal ref lux disease, unspecified whether esophagitis present (ICD-10 - K21.9) 08/14/2023 Chest pain on exerti on (ICD-10 - R07.9) 02/19/2024 Anxiety (ICD-10 - F41.9) 08/30/2023 Anxiety (ICD-10 - F41.9) 02/19/2024 Essential hypertensi on (ICD-10 - I10) PLAN OF TREATMENT Pending Test Test Name Order Date CBC w DIFF 08/14/2023 LIPOPROTEIN FRACTIONATION (LIPID PANEL) 08/14/2023 PROFILE, FASTING 08/14/2023 TSH (THYROID STIMULATING HORMONE) 2023 VITAMIN D 25-OH TOTAL 08/14/2023 Next Appt Details Provider Name:Dank Vann sergei, 04/22/2024 01:30:00 PM, [address] [place] [address], [id number], Insurance Providers Payer Name Payer Address Payer Phone Subscriber Number Group Number Insured Name Patient Relationship to Insured Coverage Start Date Coverage End Date MEDICARE [address] [place] [phone] [id number] Denisse Garcia Self - patient is the insured [facility] [address] [place] [address] [id number] Denisse Garcia Self - patient is the insured MEDICAL (GENERAL) HISTORY Medical History History ICD Code hypercholesterolemia gastroesophageal reflux disease (GERD) Anxiety disorder depression stage fright allergies plantar fasciitis renal cyst, right herniated lumbar disc Bronchiectasis without complication J47. 9 Diverticulitis K57.92 Surgical History Surgery Date(Month/Year) tonsillectomy and adenoidectomy appendectomy tubal ligation facial cosmetic surgery lumbar disc surgery times two
--- OUTSIDE RECORDS SUMMARY | 2024-03-02 11:08 | XMS_ITS ---
Author Organization Dank Brown DO, [facility] Address [address] [place] [phone] Care Team Providers Care Clay Miner Name Role Phone Dank Brown Primary Care Provider REASON FOR VISIT FYI only Encounters Encounter Location Date Provider Diagnosis Dank Brown DO, [facility] [address] [place] [id number] 10/14/2023 Dank Brown PLAN OF TREATMENT Next Appt Details Provider Name:Dank mai, 04/22/2024 01:30:00 PM, [address] [place] [address], [phone],
--- OUTSIDE RECORDS SUMMARY | 2024-03-02 11:08 | XMS_ITS ---
Author Organization Dank Brown DO, FACP Address [address] [place] [phone] Care Team Providers Care Etcher Apprentice Name Role Phone Dank Brown Primary Care Provider REASON FOR VISIT Message Encounters Encounter Location Date Provider Diagnosis Dank Brown DO, FACP [address] [place] [id number] 02/05/2024 Dank Brown PLAN OF TREATMENT Next Appt Details Provider Name:Dank mai, 04/22/2024 01:30:00 PM, [address] [place] [address], [phone],
[2024-03-02] MEDS: iohexoL 350 MG/ML 75 ML INFUS..BTL 85 ML IV (14:23)
[2024-03-02] MEDS: Barium Sulfate Oral (Berry) 450 ML ORAL.SUSP 900 ML PO (14:24)
== END 2024-03-02 11:05 | disposition home or self-care (01) ==
LOC: HO.CT 11:04
PROVIDERS: PCP Internal Medicine; Visit Provider Internal Medicine
DX: K57.32 Diverticulitis of large intestine without perforation or abscess without bleeding (principal); R10.32 Left lower quadrant pain
CPT/HCPCS: 36415; 74177; 80076; 82150; 83690; 85025; Q9967

== ENCOUNTER 2024-03-02 11:30 | Outpatient (REF) | payer MEDICARE, OTHER, SELFPAY ==
[2024-03-02 11:44] LABS: MANUAL DIFF FLAG NO
[2024-03-02 13:01] LABS: Basophils Percent Auto 0.7 % (0-2); Eosinophils Absolute Auto 0.1 X10*3/uL (0.0-0.4); Eosinophils Percent Auto 2.4 % (0-4); Hematocrit 43.9 % (37.0-47.0); Hemoglobin 15.1 g/dl (12.0-16.0); Imm Gran Abs Auto 0.02 X10*3/uL (0.00-0.03); Imm Gran Pct Auto 0.3 % (0.0-0.4); Lymphocytes Absolute Auto 1.5 X10*3/uL (1.2-4.9); Mean Corpuscular HGB Conc 34.4 g/dl (31.0-35.0); Mean Corpuscular Hemoglobin 31.7 pg (27.0-33.0); Mean Platelet Volume 9.3 fL (9.4-12.3); Monocytes Absolute Auto 0.4 X10*3/uL (0.1-1.2); Monocytes Percent Auto 6.5 % (2-11); Neutrophils Absolute Auto 3.7 x10*3/uL (2.0-8.3); Neutrophils Percent Auto 64.1 % (45-73); Platelet Count 265 X10*3/uL (160-400); Red Blood Count 4.77 X10*6/uL (4.20-5.50); Red Cell Distribution Width 12.7 % (11.0-16.0); White Blood Count 5.8 X10*3/uL (4.8-10.8)
[2024-03-02 13:18] LABS: Alanine Aminotransferase 30 U/L (0-31); Albumin Level 4.2 g/dL (3.5-5.0); Alkaline Phosphatase 75 U/L (39-117); Amylase 45 U/L (28-100); Aspartate Amino Transferase 32 U/L (5-31); Bilirubin Direct 0.2 mg/dL (0.0-0.5); Bilirubin Total 0.6 mg/dL (0.0-1.0); Lipase 30 U/L (8-78); Total Protein 7.1 g/dL (6.5-8.0)
== END 2024-03-02 11:31 | disposition home or self-care (01) ==
LOC: HO.LAB 11:30
PROVIDERS: PCP Internal Medicine; Visit Provider Internal Medicine
DX: Z13.89 Encounter for screening for other disorder (principal)
CPT/HCPCS: 36415; 80076; 82150; 83690; 85025

== ENCOUNTER → 2024-03-02 13:25 | Outpatient (BNV) | payer MEDICARE, OTHER, SELFPAY | PROVIDERS: PCP Internal Medicine; Visit Provider Radiology Diagnostic Radiology | DX: N28.1 Cyst of kidney, acquired (principal); K57.32 Diverticulitis of large intestine without perforation or abscess without bleeding; M43.05 Spondylolysis, thoracolumbar region | CPT/HCPCS: 74177 ==

== ENCOUNTER 2024-03-16 06:27 | Day surgery (SDC) | payer MEDICARE, OTHER, SELFPAY ==
[2024-03-12 12:42] VITALS: BMI 20.9
[2024-03-16 06:42] VITALS: BMI 21.5
[2024-03-16 06:50] VITALS: BP 160/81; PULSE 68; RESP 16; TEMP 36.7; O2SAT 97
[2024-03-16] MEDS: Lactated Ringers 1,000 ML 50 ML IVCONT (07:09)
--- NOTE | 2024-03-16 07:27 | HO.ANESPROP2 ---
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 difficile enteritis Anxiety Elevated cholesterol Hiatal hernia GERD (gastroesophageal reflux disease) Family History Family History Mother Stroke Father Parkinsons disease Sister Essential lymphedema Hypertension DM type 2 (diabetes mellitus, type 2) Heart attack Family history of problems with anesthesia: No Surgical History Surgical History Hx of appendectomy History of tonsillectomy and adenoidectomy Hx of tubal ligation History of back surgery History of esophagogastroduodenoscopy (EGD) H/O colonoscopy History of Problems with Anesthesia: Yes (PONV) Social History Social History Alcohol intake: current Alcohol intake frequency: a few times a week Patient Tobacco Use Status: Former Tobacco user Use of substances other than those prescribed or required for medical reasons: Yes Substance Use Type: Marijuana Are you DNR?: No Advance Directives: No Advance Directives Information Provided: Yes Advance Directives on File: No Recently lost weight without trying: No Nutrition Risks: No Nutritional Risk Patient : No Meds Allergies Allergy/AdvReac Type Severity Reaction Status Date / Time environmental allergies Allergy Sneezing Verified 02/06/24 10:32 Active Medications: Current Medications Lactated Ringer's (Lr) 1,000 mls @ 50 mls/hr IVCONT .Q20H DUNCAN Last Admin: 03/16/24 07:09 Dose: 50 mls/hr Sodium Biphosphate/Sodium Phosphate (Sodium Phosphate,Pierce-Dibasic 133 Ml Enema) 133 ml MD ONCE PRN PRN Reason: Poor Colonoscopy Prep Results Home Medications ?Medication ?Instructions ?Recorded ?Confirmed ?Last Taken ?Type cetirizine 10 mg tablet (Zyrtec) 10 mg PO DAILY 08/22/21 03/12/24 Unknown History omeprazole 20 mg capsule,delayed 1 cap PO DAILY 08/22/21 03/12/24 03/16/24 History release propranolol 10 mg tablet 10 mg PO DAILY 11/26/23 03/12/24 03/16/24 History citalopram 20 mg tablet 20 mg PO DAILY 01/16/24 03/12/24 03/16/24 History estradiol 10 mcg vaginal tablet 10 mcg vaginal 3XW 03/12/24 03/12/24 Unknown History (Yuvafem) Exam Height,Weight and Vital Signs: Height 5 ft 3 in Weight 55.055 kg Last Vital Signs Temp 98.1 F 03/16/24 06:50 Pulse 68 03/16/24 06:50 Resp 16 03/16/24 06:50 BP 160/81 H 03/16/24 06:50 Pulse Ox 97 03/16/24 06:50 O2 Del Method Room Air 03/16/24 06:50 Airway Mallampati Class: II TM Dist: >3cm Neck ROM: Full Loose/Missing/Broken Teeth: No Heart: RRR Lungs: CTA Assessment and Plan Assessment Anesthesia Assessment: Anesthesia Plan Discussed and Chart Reviewed Final Anesthetic Review Family History of Problems with Anesthesia: No History of Problems with Anesthesia: Yes (PONV) NPO: Yes ASA Class: III Final Preanesthetic Review: Meds/Allgs Chart Reviewed, Consent Obtained/Reviewed and Anes Risks/Benef Reviewed Patient Risk: Intermediate Procedure Risk: Intermediate Anesthetic Plan Anesthetic Plan: MAC: Disposition: Standard PACU
[2024-03-16 08:50] VITALS: BP 121/63; PULSE 57; RESP 18; TEMP 36.4; O2SAT 97
--- NOTE | 2024-03-16 08:53 | PM.OP ---
Brief Operative Note Date of Service: 03/16/24 Pre-op diagnosis: GERD, Screening Post-op diagnosis: other (Gastritis, Hiatal hernia, Colon polyp) Procedure: EGD with biopsies, Colonoscopy to the cecum with cold snare polypectomy and biopsies Surgeon: Dank Murray MD Anesthesia: MAC Was an Supervisor Slitting And Shipping used for this Procedure?: No Estimated blood loss (mL): 2.0 Pathology: other (A. Descending duodenum B. Gastric antrum C. Gastric antral polyp D. EG Junction at 35cm E. Ascending colon F. Ascending colon polyp G. Descending colon) Condition: stable Disposition: PACU
[2024-03-16 09:05] VITALS: BP 145/68; PULSE 60; RESP 18; TEMP 36.7; O2SAT 95
--- NOTE | 2024-03-16 09:14 | OP_ITS ---
DATE OF SERVICE: 03/16/2024 SURGEON: Dank Murray MD INDICATIONS: The patient presents for evaluation of gastroesophageal reflux, irregular bowel movements, personal history of colon polyps, family history of colon cancer, and colorectal cancer screening. Full consent was obtained from her for both procedures, including risks of bleeding and perforation. PREOPERATIVE DIAGNOSIS: POSTOPERATIVE DIAGNOSIS: PROCEDURE PERFORMED: Esophagogastroduodenoscopy with biopsies, and colonoscopy to the cecum with cold snare polypectomy and multiple biopsies. ESTIMATED BLOOD LOSS: COMPLICATIONS: ANESTHESIA: Medication used, monitored anesthesia care. ASSISTANTS: SPECIMENS: PREOPERATIVE DIAGNOSES: Gastroesophageal reflux, change in bowel habits, personal history of colon polyps, family history of colon cancer. POSTOPERATIVE DIAGNOSES: Gastroesophageal reflux, change in bowel habits, personal history of colon polyps, family history of colon cancer, rule out celiac disease, gastritis, gastric polyps, hiatal hernia, gastroesophageal reflux, colon polyp, rule out microscopic colitis, diverticulosis, internal hemorrhoids. DESCRIPTION OF PROCEDURE: The patient was placed in the left lateral decubitus position. The Olympus video gastroscope was passed in the posterior oropharynx and upper esophagus under direct vision. The scope was passed slowly into the distal esophagus. The gastroesophageal junction appeared at 35 cm. There was some very minimal irregularity, but no evidence of esophagitis nor any definitive Marr mucosa. The scope entered the stomach. There was a small hiatal hernia. The scope was advanced to pylorus and the duodenum was cannulated to the descending portion. The duodenum including the bulb appeared normal without mass or ulceration. Biopsies were obtained from the 2nd and 3rd portions of duodenum. The scope was withdrawn back to the stomach. The gastric antrum had some areas of erythema and edema consistent with some mild gastritis. There was good peristalsis. Biopsies were obtained from the antrum. Also in the antrum along the posterior wall, there was an approximately 12 mm area that may have represented a flat polyp or simply some gastritis. Multiple biopsies were obtained from it and put in a separate jar. The scope was retroflexed visualizing the proximal stomach carefully, which appeared normal, without any sign of mass or ulceration. The scope was straightened and withdrawn back to the esophagus. Biopsies were obtained at the EG junction at 35 cm. Proximal to this, the esophageal mucosa appeared normal. The scope was withdrawn from the patient. She was turned around for the colonoscopy. The digital rectal exam revealed no abnormalities. The Olympus video pediatric colonoscope was entered into the rectum and advanced to the cecum. Advancement past the sigmoid was somewhat difficult due to a lot of diverticulosis and some spasm. However, once in the cecum, I did identify normal-appearing cecal pouch with normal-appearing ileocecal valve. There was transillumination of light deep in the right lower quadrant. The entire cecum appeared normal. The scope was slowly withdrawn assessing all mucosal surfaces carefully. Preparation was excellent. In the proximal ascending colon, there was a flat, approximately 5 or 6 mm polyp, which was removed by cold snare polypectomy, recovered by suction. The polypectomy site appeared clean, without any sign of residual polyp nor significant bleeding. I did not visualize any sign of other polyps, colitis, nor angiodysplasias. Random biopsies were obtained in the ascending and descending colon. There was a moderate amount of diverticulosis extending from the transverse colon to the sigmoid colon. In the rectum, scope was retroflexed visualizing internal hemorrhoids, but no other pathology. The rectal mucosa appeared normal. The scope was straightened and withdrawn from the patient. She tolerated both procedures well and was returned to recovery area in stable condition. IMPRESSION: 1. Hiatal hernia, gastroesophageal reflux. 2. Gastritis. 3. Gastric polyps. 4. Rule out celiac disease. 5. Rule out microscopic colitis. 6. Colon polyp. 7. Diverticulosis. 8. Internal hemorrhoids. PLAN: The results of the biopsies will be checked. Given her age and today's findings, I do not think she would need any further screening colonoscopies. She will continue her daily omeprazole. She was advised to continue her bowel regimen of some fiber and stool softener. She was advised not to use any aspirin and NSAIDs for 1 week. She will otherwise see me on a p.r.n. basis. MD TAN Bauman/GRISEL / [id number]
== END 2024-03-16 09:25 | disposition home or self-care (01) ==
PROVIDERS: PCP Internal Medicine; Visit Provider Internal Medicine
PROC: (CPT 45385; principal; 2024-03-16 07:30)
DX: Z12.11 Encounter for screening for malignant neoplasm of colon (principal); Z86.0101 Personal history of adenomatous and serrated colon polyps; Z80.0 Family history of malignant neoplasm of digestive organs; D12.2 Benign neoplasm of ascending colon; R19.4 Change in bowel habit; K57.30 Diverticulosis of large intestine without perforation or abscess without bleeding; K64.8 Other hemorrhoids; Z86.19 Personal history of other infectious and parasitic diseases; Z87.19 Personal history of other diseases of the digestive system; K21.9 Gastro-esophageal reflux disease without esophagitis; K29.50 Unspecified chronic gastritis without bleeding; K31.7 Polyp of stomach and duodenum; K44.9 Diaphragmatic hernia without obstruction or gangrene; E78.5 Hyperlipidemia, unspecified; F41.9 Anxiety disorder, unspecified; Z79.899 Other long term (current) drug therapy; Z98.890 Other specified postprocedural states; Z87.891 Personal history of nicotine dependence
CPT/HCPCS: 45385; 45380; 43239; 88305; 88313; 88342; J2003; J2704

== ENCOUNTER → 2024-04-22 13:29 | Outpatient (BNVA) | payer MEDICARE, OTHER, SELFPAY | PROVIDERS: PCP Internal Medicine; Visit Provider Physician Assistant Medical | DX: E78.00 Pure hypercholesterolemia, unspecified (principal); F41.9 Anxiety disorder, unspecified; F32.A Depression, unspecified; J47.9 Bronchiectasis, uncomplicated; K57.90 Diverticulosis of intestine, part unspecified, without perforation or abscess without bleeding; K64.9 Unspecified hemorrhoids; K21.9 Gastro-esophageal reflux disease without esophagitis; I10 Essential (primary) hypertension; Z87.891 Personal history of nicotine dependence | CPT/HCPCS: 99202 ==

== ENCOUNTER 2024-04-27 09:52 | Outpatient (REF) | payer MEDICARE, OTHER, SELFPAY ==
[2024-04-27 10:15] LABS: MANUAL DIFF FLAG NO
--- OUTSIDE RECORDS SUMMARY | 2024-04-27 10:41 | XMS_ITS | Encounter Summary ---
Author Organization [facility] Address [address] [place] [address] Care Team Providers Care Keyboarding Clerk Name Role Phone Dank Brown DO Primary Care Provider [phone] Reason for Referral * Imaging (Routine) - Closed Specialty Diagnoses / Procedures Referred By Contac t Referred To Contact Radiology Diagnoses Encounter for screening mammogram for breast cancer Procedures MG Mammo Digital Screening w Rad bilat Spp, Self Referral [facility] Referral ID Status Reason Start Date Expiration Date Visits Re quested Visits Authorized [id number] Closed 03/20/2024 03/20/2025 1 1 * Imaging (Routine) - Closed Specialty Diagnoses / Procedures Referred By Contac t Referred To Contact Radiology Diagnoses Encounter for screening mammogram for breast cancer Procedures MG Mammo Digital Screening w Rad bilat Spp, Self Referral [facility] Referral ID Status Reason Start Date Expiration Date Visits Re quested Visits Authorized [id number] Closed 03/20/2024 03/20/2025 1 1 Reason for Visit * Imaging (Routine) - Closed Specialty Diagnoses / Procedures Referred By Contac t Referred To Contact Radiology Diagnoses Encounter for screening mammogram for breast cancer Procedures MG Mammo Digital Screening w Rad bilat Sppl, Self Referral [facility] Referral ID Status Reason Start Date Expiration Date Visits Re quested Visits Authorized [id number] Closed 03/20/2024 03/20/2025 1 1 Encounter Details Date Type Department Care Team (Latest Contact Info) Description 03/27/2024 12:51 PM EST - 03/27/2024 11:59 PM EST Hospital Encounter [facility] at [address] [phone] Encounter for screening mammogram for breast cancer Discharge Disposition: Home or Self Care Social History Tobacco Use Types Packs/Day Years Used Date Smoking Tobacco: Never Assessed Comments No Sex and Gender Information Value Date Recorded Sex Assigned at Female 03/20/2024 10:34 AM EST Legal Sex Female 11:54 PM EST Gender Identity Female 03/20/2024 10:34 AM EST Sexual Orientation Straight 03/20/2024 10 :34 AM EST documented as of this encounter Last Filed Vital Signs Vital Sign Reading Time Taken Comments Blood Pressure - - Pulse - - Temperature - - Respiratory Rate - - Oxygen Saturation - - Inhaled Oxygen Concentration - - Weight 54.9 kg (121 lb) 03/27/2024 1:05 PM EST Height 160 cm (5' 3 ) 03/27/2024 1:05 PM EST Body Mass Index 21.43 03/27/2024 1:05 PM EST documented in this encounter Discharge Disposition Disposition Code Departure Means Destination Home or Self Care documented in this encounter Plan of Treatment Not on file documented as of this encounter Procedures Procedure Name Priority Date/Time Associated Diagnosis Comments MG MAMMO DIGITAL SCREENING W RAD BILAT Routine 03/27/2024 2:12 PM EST Encounter for screening mammogram for breast cancer documented in this encounter Results * MG Mammo Digital Screening w Rad bilat (03/27/2024 2:12 PM EST) Anatomical Region Laterality Modality Breast Bilateral Mammography 03/27/2024 2:50 PM EST Impressions 03/27/2024 2:55 PM EST No mammographic evidence of malignancy. ?? No suspicious interval change. A negative mammogram in the presence of a clinically suspicious palpable abnormality does not preclude the possibility of malignancy or alter the indications for biopsy. ASSESSMENT: ?? BI-RADS 1: NEGATIVE RECOMMENDATION(S): 1: Routine screening mammogram BILATERAL in 1 year. -------- FINAL REPORT -------- Dictated By: Joey Jimenez Dictated Date: 03/27/2024 14:50 ET Assigned Physician: Joey Jimenez Reviewed and Electronically Signed By: Joey Jimenez Signed Date: 03/27/2024 14:55 ET Workstation ID: [id number] Transcribed By: Self Edit Transcribed Date: 03/27/2024 14:50 ET Narrative 03/27/2024 2:55 PM EST EXAM: ??SCREENING MAMMOGRAPHY, BILATERAL HISTORY: ??SCREENING. ??Family history of breast cancer-mother age 97, sister age 50 COMPARISON: ??03/12/2023, 03/07/2022, 02/28/2021 TECHNIQUE: Synthesized CC and MLO projections of each breast. ??Tomosynthesis of each breast in the CC and MLO projections. ADDITIONAL IMAGING: None Computer-aided detection was employed with the iCAD ??profound AI 3-D. TISSUE DENSITY: The breasts are heterogeneously dense, which may obscure small masses. (BI-RADS category C) FINDINGS: RIGHT BREAST: No suspicious mass. No suspicious calcification. No distortion. ?? No additional suspicious right breast findings LEFT BREAST: No suspicious mass. No suspicious calcification. No distortion. ?? No additional suspicious left breast findings Procedure Note Joey Jimenez MD - 03/27/2024 EXAM: SCREENING MAMMOGRAPHY, BILATERAL HISTORY: SCREENING. Family history of breast cancer-mother age 97,sister age 50 COMPARISON: 03/12/2023, 03/07/2022, 02/28/2021 TECHNIQUE: Synthesized CC and MLO projections of each breast.Tomosynthesis of each breast in the CC and MLO projections. ADDITIONAL IMAGING: None Computer-aided detection was employed with the iCAD profound AI 3-D. TISSUE DENSITY: The breasts are heterogeneously dense, which may obscuresmall masses. (BI-RADS category C) FINDINGS: RIGHT BREAST: No suspicious mass. No suspicious calcification. No distortion. Noadditional suspicious right breast findings LEFT BREAST: No suspicious mass. No suspicious calcification. No distortion. Noadditional suspicious left breast findings IMPRESSION: No mammographic evidence of malignancy. No suspicious interval change. A negative mammogram in the presence of a clinically suspicious palpableabnormality does not preclude the possibility of malignancy or alter theindications for biopsy. ASSESSMENT: BI-RADS 1: NEGATIVE RECOMMENDATION(S): 1: Routine screening mammogram BILATERAL in 1 year. -------- FINAL REPORT -------- Dictated By: Joey Jimenez Dictated Date: 03/27/2024 14:50 ET Assigned Physician: Joey Jimenez Reviewed and Electronically Signed By: Joey Jimenez Signed Date: 03/27/2024 14:55 ET Workstation ID: [id number] Transcribed By: Self Edit Transcribed Date: 03/27/2024 14:50 ET us Self Referral Sppl IMG BI PROCEDURES Final Resul t documented in this encounter Visit Diagnoses Diagnosis Encounter for screening mammogram for breast cancer documented in this encounter Care Teams Keyboarding Clerk Relationship Specialty Start Date End Date Dank Brown DO [address] [place] [phone] PCP - General Internal Medicine 03/20/24 documented as of this encounter
--- OUTSIDE RECORDS SUMMARY | 2024-04-27 10:41 | XMS_ITS ---
Author Organization Dank Brown DO, FACP Address [address] [place], [place] [id number] Care Team Providers Care Resume Writer Name Role Phone Dank Brown Primary Care Provider REASON FOR VISIT Message Encounters Encounter Location Date Provider Diagnosis Dank Brown DO, FACP [address] [place] [address] [phone] 02/05/2024 Dank Brown PLAN OF TREATMENT No Information
--- OUTSIDE RECORDS SUMMARY | 2024-04-27 10:41 | XMS_ITS | Patient Health Record ---
Author Organization [facility] Address [address] [place] [address] Care Team Providers Care Learning Development Specialist Name Role Phone Kevin (RETIRED) Dank HUFF Primary Care Provid er Unavailable Dank Murray Unavailable [phone] RESULTS Component Value Reference Range Notes Amylase Reviewed date:11/12/2023 11:06:10 PM Interpretation: Performing Lab:[facility], [address] [place] [phone] Notes/Report: Amylase 36 28-100 U/L Lipase Reviewed date:11/12/2023 11:06:02 PM Interpretation: Performing Lab:[facility], [address] [place] [phone] Notes/Report: Lipase 22 8-78 U/L Calprotectin, Fecal Reviewed date:11/19/2023 11:05:17 AM Interpretation: Performing Lab:[facility], [address] [place] [phone] Notes/Report: Calprotectin, Fecal 6 Reference Range: <50 [...] borderline values. THIS TEST WAS PERFORMED AT: [employer] [address] [place] [address] CHAD DUENAS MD,PHD,MARTIR GI PANEL Reviewed date:11/13/2023 06:51:14 PM Interpretation: Performing Lab:[address] [phone] Notes/Report: Campylobacter Not Detected Not Detect. Plesiomonas [...] is performed by Multiplexed PCR, utilizing the [employer] Array. Complete Blood Count Auto Di ff Reviewed date:11/12/2023 11:04:48 PM Interpretation: Performing Lab:[facility], [address] [place] [phone] Notes/Report: White Blood Count 6.5 4.8-10.8 X10*3/uL [...] te Reviewed date:11/12/2023 11:05:53 PM Interpretation: Performing Lab:[facility], [address] [place] [phone] Notes/Report: Erythrocyte Sedimentation Rate 14 0-20 MM/HR Patients with polycythemia and many hemoglobin abnormalities may have depressed sed rates whereas patients with anemia may have elevated sed rates. Leukocytes Stool Qualitative Reviewed date:11/12/2023 11:04:30 PM Interpretation: Performing Lab:[facility], [address] [place] [address] Notes/Report: Leukocytes Stool Qualitative NEGATIVE NEGATIVE Liver Panel Reviewed date:11/12/2023 11:04:58 PM Interpretation: Performing Lab:[facility], [address] [place] [phone] Notes/Report: Bilirubin Total 0.6 0.0-1.0 mg/dL Bilirubin Direct 0.2 0.0-0.5 mg/dL Aspartate Amino Transferase 22 5-31 U/L Alanine Aminotransferase 20 0-31 U/L Total Protein 6.9 6.5-8.0 g/dL Albumin Level 4.1 3.5-5.0 g/dL Alkaline Phosphatase 62 39-117 U/L Basic Metabolic Panel Reviewed date:11/12/2023 11:05:31 PM Interpretation: Performing Lab:[facility], [address] [place] [phone] Notes/Report: Sodium 139 135-145 mmol/L Potassium 4.4 3.3-5.1 mmol/L Chloride 103 96-108 mmol/L Carbon Dioxide 32 22-29 mmol/L Anion Gap 8 12-20 Blood Urea Nitrogen 10 9-16 mg/dL Creatinine 0.74 0.5-1.4 mg/dL Estimated Glomerular Filt Rate > 60 NOTE: For -Italian individuals, multiply the result by 1.210. Chronic Kidney Disease: Estimated GFR < 60 mL/min/1.73m2 Severe Kidney Disease: Estimated GFR < 15 mL/min/1.73m2 Glucose Random 115 60-115 mg/dL Calcium 9.4 8.4-10.2 mg/dL C Reactive Protein Reviewed date:11/12/2023 11:05:41 PM Interpretation: Performing Lab:[facility], [address] [place] [phone] Notes/Report: C Reactive Protein 2.71 < or = 0.50 mg/dL CDiff Gene PCR Reviewed date:11/13/2023 06:13:34 PM Interpretation: Performing Lab:[facility], [address] [place] [phone] Notes/Report: CDiff Gene PCR NEGATIVE Negative If C. difficile strongly suspected despite one negative test, a second test may be sent vs. empiric treatment for C. difficile infection. MR abdomen wo/w con Reviewed date:12/06/2023 06:51:23 PM Interpretation: Performing Lab: Notes/Report: [address] [address] Magnetic Resonance Report Signed Patient: Denisse Bush MR#: [id number] : 1945 Acct:[id number] Age/Sex: 78 / F ADM Date: 11/23/23 Loc: HO.MRI Attending Dr: Dank Murray MD Ordering Physician: Dank Murray MD Date of Service: 11/23/23 Procedure(s): MR abdomen wo/w con Accession Number(s): [id number] cc: Dank Brown DO; Dank Murray MD [...] 12/06/23 1519 DD/ 1310 TD/TT: 11/23/23 1338 Tangled Yarn Worker: Complete Blood Count Auto Di ff Reviewed date:03/02/2024 10:25:29 PM Interpretation: Performing Lab:[facility], [address] [place] [phone] Notes/Report: White Blood Count 5.8 4.8-10.8 X10*3/uL Red Blood Count 4.77 4.20-5.50 X10*6/uL Hemoglobin 15.1 12.0-16.0 g/dl Hematocrit 43.9 37.0-47.0 % Mean Corpuscular Volume 92.0 80.0-98.0 fL Mean Corpuscular Hemoglobin 31.7 27.0-33.0 pg Mean Corpuscular HGB Conc 34.4 31.0-35.0 g/dl Red Cell Distribution Width 12.7 11.0-16.0 % Platelet Count 265 160-400 X10*3/uL Mean Platelet Volume 9.3 9.4-12.3 fL Neutrophils Percent Auto 64.1 45-73 % Imm Gran Pct Auto 0.3 0.0-0.4 % Lymphocytes Percent Auto 26.0 20-40 % Monocytes Percent Auto 6.5 2-11 % Eosinophils Percent Auto 2.4 0-4 % Basophils Percent Auto 0.7 0-2 % NRBC Pct Auto 0.0 0.0-0.2 /100WBC Neutrophils Absolute Auto 3.7 2.0-8.3 x10*3/u L Imm Gran Abs Auto 0.02 0.00-0.03 X10*3/uL Lymphocytes Absolute Auto 1.5 1.2-4.9 X10*3/u L Monocytes Absolute Auto 0.4 0.1-1.2 X10*3/uL Eosinophils Absolute Auto 0.1 0.0-0.4 X10*3/u L Basophils Absolute Auto 0.0 0.0-0.2 X10*3/uL NRBC Abs Auto 0.000 0.0-0.012 X10*3/uL Liver Panel Reviewed date:03/02/2024 10:25:52 PM Interpretation: Performing Lab:[facility], [address] [place] [phone] Notes/Report: Bilirubin Total 0.6 0.0-1.0 mg/dL Bilirubin Direct 0.2 0.0-0.5 mg/dL Aspartate Amino Transferase 32 5-31 U/L Alanine Aminotransferase 30 0-31 U/L Total Protein 7.1 6.5-8.0 g/dL Albumin Level 4.2 3.5-5.0 g/dL Alkaline Phosphatase 75 39-117 U/L Amylase Reviewed date:03/03/2024 12:31:30 AM Interpretation: Performing Lab:[facility], [address] [place] [phone] Notes/Report: Amylase 45 28-100 U/L Lipase Reviewed date:03/02/2024 10:26:06 PM Interpretation: Performing Lab:[facility], [address] [place] [phone] Notes/Report: Lipase 30 8-78 U/L CT abdomen pelvis w con Reviewed date:03/03/2024 11:01:50 PM Interpretation: Performing Lab: Notes/Report: [address] [address] [address] Scan Report Signed Patient: Denisse Bush MR#: [id number] : 1945 Acct:[id number] Age/Sex: 78 / F ADM Date: 03/02/24 Loc: HO.CT Attending Dr: Dank Murray MD Ordering Physician: Dank Murray MD Date of Service: 03/02/24 Procedure(s): CT abdomen pelvis w IV con Accession Number(s): [id number] cc: Dank Brown DO; Dank Murray MD EXAMINATION: CT ABDOMEN AND PELVIS WITH CONTRAST CLINICAL INFORMATION: Left lower quadrant abdominal pain. Diverticulitis. COMPARISON: CT dated February 06, 2024. TECHNIQUE: Multidetector volumetric images were obtained from the superior aspect of the liver through the pubic symphysis following administration 85 mL of Omnipaque 350 intravenous contrast. Sagittal and coronal reformatted images were obtained on the technologist's workstation. Oral contrast: [address] examination was performed using dose optimization techniques as appropriate, variously including the following: *Automated exposure control *Adjustment of mA and/or kV according to patient size (this includes techniques or standardized protocols for targeted exams where dose is matched to indication/reason for exam; i.e. extremities or head) *Use of iterative reconstruction technique DLP: 428 mGy-cm FINDINGS: Submitted for interpretation on March 03, 2024. LUNG BASES: No acute airspace disease or gross pulmonary nodules. Centrilobular emphysematous changes. LIVER, GALLBLADDER, AND BILIARY TREE: Liver measures 15 cm no focal mass. Portal veins, hepatic veins and intrahepatic portion of the IVC are patent. Subtle nodular surface. No pericholecystic fluid collection or gallbladder wall thickening. No intrahepatic or extrahepatic biliary ductal dilatation. Common bile duct measures 4 m. PANCREAS: No focal mass. No peripancreatic fluid collection. No main pancreatic ductal dilatation. SPLEEN: 11 cm. No focal mass. ADRENAL GLANDS: No nodular lesion. KIDNEYS AND URETERS: 8 x 9 cm exophytic fluid density lesion, midportion to lower pole right kidney. No renal mass. No hydronephrosis. BLADDER: Fluid-filled. GASTROINTESTINAL TRACT: Numerous diverticula throughout the left hemicolon. Abundant stool within the large intestine. No intestinal obstruction pattern. No pericolonic edema pattern. No pneumatosis intestinalis. No ascites. No pneumoperitoneum. No peripheral enhancing fluid collection, peritoneal cavity. Terminal ileum is normal. I do not see the appendix. ABDOMINAL WALL: Small tiny fat-containing umbilical hernia. LYMPH NODES: No lymphadenopathy. VASCULAR: Mixed plaques throughout the abdominal aorta mesenteric vessels, main renal arteries, splenic artery, iliac arteries. No aneurysm or dissection, abdominal aorta. Inadequate evaluation of the iliac and femoral veins.. PELVIC VISCERA: Multifocal low-density nodular lesions with the partial air cells calcifications in the uterus, the largest measures 8 cm. OSSEOUS STRUCTURES: Multilevel thoracolumbar spondylosis more conspicuous at L2-3 and L3-4 levels. Grade 1 anterolisthesis L4-5 resulting in bilateral neuroforamina stenosis. Spina bifida occulta, S1. Osteopenia versus osteoporosis. S-shaped curvature of the lumbar spine. CT/CT abdomen pelvis w IV con IMPRESSION: Diverticular disease, sigmoid colon without intestinal obstruction pattern or peritoneal fluid collections nor pneumoperitoneum. Large, 9 cm exophytic cyst, right kidney. Atherosclerosis disease. Leyomyomata uteri ear Grade 1 anterolisthesis and a degenerative basis at L4-5. Multilevel thoracolumbar spondylosis. Fleischner guidelines were followed. Electronically signed by: Shaq Caballero MD 03/03/2024 09:13 AM EST Dictated By: Shaq Ha MD Signed By: <Electronically signed by Shaq Foss MD in OV> 03/03/24 0913 DD/ 1325 TD/TT: 03/02/24 1340 Tangled Yarn Worker: Pathology (Not yet reviewed by provider) Interpretation: Performing Lab:[facility], [address] [place] [phone] Notes/Report: REASON FOR REFERRAL No Information MEDICATIONS Medication [...] reflux disease without esophagitis (K21.9) Active confirmed 052456379 Problem Encounter for screening for malignant neoplasm of colon (Z12.11) Active confirmed 163101481 Problem Encounter for screening for malignant neoplasm of rectum (Z12.12) Active confirmed Screening for malignant neoplasm of rectum (833211507) Problem History of adenomatous polyp of colon (Z86.010) Active confirmed 686997979 Problem Diarrhea of presumed infectious origin (A09) Active confirmed 83103507 Problem Diarrhea (R19.7) Active confirmed 59852 008 Problem History of Clostridium difficile (Z87.19) Active confirmed 902045544 Problem IPMN (intraductal papillary mucinous neoplasm) (D49.0) Active confirmed 85576458 Problem Diverticulitis (K57.92) Active confirmed Diverticulitis (070824512) Problem Diverticulosis of colon (K57.30) Active confirmed Diverticulosi s of colon (102605589) Problem Gastroesophageal reflux (K21.9) Active confirmed Esophageal re flux finding (719013224) Problem Serrated polyp of colon (K63.5) Active confirmed Serrated polyp of colon (247633832) Problem Family history of malignant neoplasm of colon in first degree relative diagnosed when younger than 60 years of age (Z80.0) Active confirmed Family history of malignant neoplasm of gastrointestinal tract (174799298) Problem Abdominal pain (R10.9) Active confirmed Abdominal pain (59869830) Problem Diverticulitis of colon (K57.32) Active confirmed Diverticuliti s of colon (828208180) Problem Abdominal pain, acute, left lower quadrant (R10.32) Active confirmed Left lower quadrant pain (337295237) Problem Diverticulosis of large intestine without perforation or abscess without bleeding (K57.30) Active confirmed Diverticul ar disease of colon (343862986) Problem Gastritis (K29.70) Active confirmed Gas tritis (4596986) Problem Gastric polyps (K31.7) Active confirmed Benign neoplasm of stomach (52312660) Problem Gastroesophageal reflux disease (K21.9) Active confirmed Gastroesophagea l reflux disease (337064831) VITAL SIGNS Blood pressure diastolic 00 mm Hg 10/29/2023 Height 64 in 10/29/2023 Blood pressure systolic 00 mm Hg 10/29/2023 Weight 122 lbs 10/29/2023 BMI 20.94 kg/m2 10/29/2023 Encounters Encounter Location Date Provider Diagnosis [facility] Outpatient [address] [place] [phone] 03/16/2024 Dank Murray Colon polyps K63.5 ; Change in bowel habits R19.4 ; Family history of colon cancer Z80.0 ; Diverticulosis of large intestine without perforation or abscess without bleeding K57.30 ; Other hemorrhoids K64.8 ; Hiatal hernia K44.9 ; Gastritis K29.70 ; Gastric polyps K31.7 and Gastroesophageal reflux disease K21.9 [facility] [address] [place] [phone] 10/29/2023 Dank Murray Gastroesophageal ref lux disease without esophagitis K21.9 ; Encounter for screening for malignant neoplasm of colon Z12.11 ; History of adenomatous polyp of colon Z86.010 ; IPMN (intraductal papillary mucinous neoplasm) D49.0 ; Serrated polyp of colon K63.5 and Family history of malignant neoplasm of colon in first degree relative diagnosed when younger than 60 years of age Z80.0 [facility] [address] [place] [phone] 11/11/2023 Dank Murray Diarrhea R19.7 and Abdominal pain R10.9 [facility] [address] [place] [phone] 11/11/2023 Dank Murray [facility] [address] [place] [phone] 11/13/2023 Dank Murray [facility] [address] [place] [phone] 11/22/2023 Dank Murray [facility] [address] [place] [phone] 12/02/2023 Dank Murray [facility] [address] [place] [phone] 02/05/2024 Dank Murray [facility] [address] [place] [address] 02/10/2024 Dank Murray [facility] [address] [place] [phone] 02/19/2024 Dank Murray Diverticulitis of co naresh K57.32 and Abdominal pain, acute, left lower quadrant R10.32 [facility] [address] [place] [phone] 03/03/2024 Dank Murray ASSESSMENTS Encounter Date Diagnosis Assessment Notes Treatment Notes Treatment Clinical Notes 03/16/2024 Change in bowel habi ts (ICD-10 - R19.4) 03/16/2024 Colon polyps (ICD-10 - K63.5) 10/29/2023 Encounter for screen ing for malignant neoplasm of colon (ICD-10 - Z12.11) 10/29/2023 Gastroesophageal ref lux disease without esophagitis (ICD-10 - K21.9) 11/11/2023 Abdominal pain (ICD- 10 - R10.9) 11/11/2023 Diarrhea (ICD-10 - R19.7) 02/19/2024 Diverticulitis of co naresh (ICD-10 - K57.32) 02/19/2024 Abdominal pain, acut e, left lower quadrant (ICD-10 - R10.32) 03/16/2024 Family history of co naresh cancer (ICD-10 - Z80.0) 10/29/2023 History of adenomato us polyp of colon (ICD-10 - Z86.010) 03/16/2024 Diverticulosis of la rge intestine without perforation or abscess without bleeding (ICD-10 - K57.30) 10/29/2023 IPMN (intraductal papillary mucinous neoplasm) (ICD-10 - D49.0) 03/16/2024 Other hemorrhoids (ICD-10 - K64.8) 10/29/2023 Serrated polyp of co naresh (ICD-10 - K63.5) 03/16/2024 Hiatal hernia (ICD-1 0 - K44.9) 10/29/2023 Family history of malignant neoplasm of colon in first degree relative diagnosed when younger than 60 years of age (ICD-10 - Z80.0) 03/16/2024 Gastritis (ICD-10 - K29.70) 03/16/2024 Gastric polyps (ICD- 10 - K31.7) 03/16/2024 Gastroesophageal ref lux disease (ICD-10 - K21.9) PLAN OF TREATMENT Pending Test Test Name [...] 07/21/2021 Amylase 02/19/2024 Lipase 07/21/2021 Lipase 02/19/2024 Pathology 03/16/2024 Future Test Test Name Order Date COLONOSCOPY 04/18/2016 UPPER GI ENDOSCOPY 07/21/2021 COLONOSCOPY 07/21/2021 UPPER GI ENDOSCOPY 10/29/2023 COLONOSCOPY 10/29/2023 Insurance Providers Payer Name Payer Address Payer Phone Subscriber Number Group Number Insured Name Patient Relationship to Insured Coverage Start Date Coverage End Date MEDICARE OF [place] [address] [place] [address] [phone] [id number] DENISSE BUSH Self - patient is the insured [employer] ([employer]) [address] [place]ANE [place] [id number] DENISSE BUSH Self - patient is the insured MEDICAL (GENERAL) HISTORY Medical History History ICD Code Screening colonoscopy in Jan--small tubular adenomas, diverticulosis GERD--small HH-EGD in 1-no esophagitis nor Marr's esophagus; EGD in August of 2021 revealed a small hiatal hernia, but no evidence of any esophagitis nor Marr's esophagus Denies [place],DM,CVA,Lung disease,renal dise ase Anxiety Hyperlipidemia C.diff infection in 2016 Negative colonoscopy in 07/[address] scan in 05/2021 at [facility]-treated with outpatient antibiotics IPMN seen [...] does describe a negative cardiac workup in [facility] in approximately 2021 Surgical History Surgery Date(Month/Year) Back surgery for disc disease x 2 Tubal ligation Tonsillectomy and adenoidectomy Appy
--- OUTSIDE RECORDS SUMMARY | 2024-04-27 10:41 | XMS_ITS ---
Author Organization [facility] Address [address] [place] [address] Care Team Providers Care Upper Cutter Name Role Phone Kevin (RETIRED) Dank HUFF Primary Care Provid er Unavailable Dank Murray Unavailable [phone] REASON FOR VISIT Need 03/02 CT report Encounters Encounter Location Date Provider Diagnosis [facility] [address] [place] [address] 03/03/2024 Dank Murray PLAN OF TREATMENT No Information
--- OUTSIDE RECORDS SUMMARY | 2024-04-27 10:41 | XMS_ITS ---
Author Organization Dank Brown DO, FACP Address [address] [place], [place] [id number] Care Team Providers Care Soyfreeze Operator Name Role Phone Dank Brown Primary Care Provider [phone] ALLERGIES Allergen (clinical drug ingredient) Drug/Non Drug [...] Location Date Provider Diagnosis Dank Brown DO, [address] [phone] 02/19/2024 Dank Brown Diverticulitis K57.9 2 ; [...] 1 tablet Orally Twice a day 08/30/19 24 Omeprazole 20 MG 1 capsule Orally Twice a day Yuvafem 10 MCG 1 tablet Vaginal Twi ce a Week Cetirizine HCl 10 MG 1 tablet Orally Once a day Treatment Notes Assessment Notes Diverticulitis CT scan revealed abu ndant stool. Use MOM to clear out the colon Next Appt Details Follow Up: 2 Months, Reason: follow up visit Progress Notes * Examination Category Sub-Category Detail Notes General Examination GENERAL APPEARANCE: in no ac [place] distress, well developed, well nourished HEAD: normocephalic, atrau matic HEART: no murmurs, regular rate and rhythm, S1, S2 normal LUNGS: clear to auscultatio n bilaterally ABDOMEN: bowel sounds hyperac tive, soft, nontender, nondistended SKIN: warm and dry EXTREMITIES: no edema PSYCH: alert, oriented, cog nitive function intact
--- OUTSIDE RECORDS SUMMARY | 2024-04-27 10:41 | XMS_ITS ---
Author Organization [facility] Address [address] [place] [phone] Care Team Providers Care Fishery Biologist Name Role Phone Kevin (RETIRED) Dank HUFF Primary Care Provid er Unavailable Dank Murray Unavailable [phone] REASON FOR VISIT DIVERTICULITIS-NEEDS REPEAT CT SCAN AND LABS PROBLEMS Problem Type ICD Code Onset Dates Problem Status W/U Status Risk SNOMED Code Notes Problem Diverticulitis of colon (K57.32) Active confirmed Diverticuliti s of colon (991995328) Problem Abdominal pain, acute, left lower quadrant (R10.32) Active confirmed Left lower quadrant pain (749679393) Encounters Encounter Location Date Provider Diagnosis [facility] [address] [place] [phone] 02/19/2024 Dank Murray Diverticulitis of co naresh [...]
--- OUTSIDE RECORDS SUMMARY | 2024-04-27 10:41 | XMS_ITS | Clinical Summary ---
Author Organization [facility] Address [address] [place] [address] Phone Care Team Providers Care Electrical Mechanical Technician Name Role Phone KevinDank DO Primary Care Provider [phone] Encounters Date Type Department Care Team Description 03/27/2024 12:51 PM EST - 03/27/2024 11:59 PM EST Hospital Encounter [facility] at [address] [id number] Encounter for screening mammogram for breast cancer Discharge Disposition: Home or Self Care from Last 3 Months Family History Medical History Relation Name Comments Breast cancer Mother Breast cancer Sister Relation Name Status Comments Mother Sister Social History Tobacco Use Types Packs/Day Years Used Date Smoking Tobacco: Never Assessed Comments No Sex and Gender Information Value Date Recorded Sex Assigned at Female 03/20/2024 10:34 AM EST Legal Sex Female 11:54 PM EST Gender Identity Female 03/20/2024 10:34 AM EST Sexual Orientation Straight 03/20/2024 10 :34 AM EST Obstetrics History Last Filed Vital Signs Vital Sign Reading Time Taken Comments Blood Pressure - - Pulse - - Temperature - - Respiratory Rate - - Oxygen Saturation - - Inhaled Oxygen Concentration - - Weight 54.9 kg (121 lb) 03/27/2024 1:05 PM EST Height 160 cm (5' 3 ) 03/27/2024 1:05 PM EST Body Mass Index 21.43 03/27/2024 1:05 PM EST Plan of Treatment Health Maintenance Due Date Last Done Comments DTaP,Tdap,and Td Vaccines (2 - Td or Tdap) 02/15/2016 01/18/2016 Cholesterol Screening (Lipid Panel) 02/18/2022 Depression Screening 02/18/2022 Falls Risk Assessment 02/18/2022 Medicare Annual Wellness Visit 02/18/2022 Osteoporosis Screening (Bone Density Screening) 02/18/2022 Social Influencers of Health Screening 02/18/2022 Hepatitis A Vaccines Aged Out 09/06/2016, 02/15/2016, 01/18/2016 No longer eligible based on patient's age to complete this topic Hepatitis B Vaccines Completed 09/06/2016, 02/15/2016, 01/18/2016 Pneumococcal Vaccine: 50+ Years Completed 12/21/2018, 08/20/2012 Zoster Vaccines Completed 12/30/2018, 10/2018, 08/20/2012 Hepatitis C Screening Completed 11/24/2019 RSV Immunization Patients 60+ Years Old Completed 02/04/2023 COVID-19 Vaccine Completed 11/26/2023, 05/2021, 07/10/2021, Additional history exists Influenza Vaccine Completed 11/26/2023, , 12/18/2021, Additional history exists Breast Cancer Screening Discontinued 03/27/19, 03/13/2023, 03/07/2022, Additional history exists HIB Vaccines Aged Out No longer eligi ble based on patient's age to complete this topic HPV Vaccines Aged Out No longer eligi ble based on patient's age to complete this topic IPV Vaccines Aged Out No longer eligi ble based on patient's age to complete this topic MMR Vaccines Aged Out No longer eligi ble based on patient's age to complete this topic Meningococcal ACWY Vaccine Aged Out N o longer eligible based on patient's age to complete this topic Meningococcal B Vacine Aged Out No lo nger eligible based on patient's age to complete this topic RSV Immunization Patients Under 20 months Aged Out No longer eligible based on patient's age to complete this topic Varicella Vaccines Aged Out No longer eligible based on patient's age to complete this topic Procedures Procedure Name Priority Date/Time Associated Diagnosis Comments MG MAMMO DIGITAL SCREENING W RAD BILAT Routine 03/27/2024 2:12 PM EST Encounter for screening mammogram for breast cancer from Last 3 Months Results * MG Mammo Digital Screening w [...] Signed Date: 03/27/2024 14:55 ET Workstation ID: [id number] Transcribed By: Self Edit Transcribed Date: 03/27/2024 [...] Signed Date: 03/27/2024 14:55 ET Workstation ID: [id number] Transcribed By: Self Edit Transcribed Date: 03/27/2024 14:50 ET us Self Referral Sppl IMG BI PROCEDURES Final Resul t from Last [address] [place] [address] [place] [address] Care Teams Electrical Mechanical Technician Relationship Specialty Start Date End Date Dank Brown DO [address] [place] [phone] PCP - General Internal Medicine 03/20/24
--- OUTSIDE RECORDS SUMMARY | 2024-04-27 10:41 | XMS_ITS ---
Author Organization [facility] Address [address] [place] [address] Care Team Providers Care Applied Technologist Name Role Phone Kevin (RETIRED) Dank HUFF Primary Care Provid er Unavailable Dank Murray Unavailable [phone] REASON FOR VISIT screening,hx polyps, gerd PROBLEMS Problem Type ICD Code Onset Dates Problem Status W/U Status Risk SNOMED Code Notes Problem Diverticulosis of large intestine without perforation or abscess without bleeding (K57.30) Active confirmed Diverticul ar disease of colon (937593338) Problem Gastritis (K29.70) Active confirmed Gas tritis (1006184) Problem Gastric polyps (K31.7) Active confirmed Benign neoplasm of stomach (18630794) Problem Gastroesophageal reflux disease (K21.9) Active confirmed Gastroesophagea l reflux disease (495917138) Encounters Encounter Location Date Provider Diagnosis [facility] [place] [facility] [address] [place] [phone] 03/16/2024 Dank Murray Colon polyps K63.5 ; Change in bowel habits R19.4 ; Family history of colon cancer Z80.0 ; Diverticulosis of large intestine without perforation or abscess without bleeding K57.30 ; Other hemorrhoids K64.8 ; Hiatal hernia K44.9 ; Gastritis K29.70 ; Gastric polyps K31.7 and Gastroesophageal reflux disease K21.9 ASSESSMENTS Encounter Date Diagnosis Assessment Notes Treatment Notes Treatment Clinical Notes 03/16/2024 Colon polyps (ICD-10 - K63.5) 03/16/2024 Change in bowel habi ts (ICD-10 - R19.4) 03/16/2024 Family history of co naresh cancer (ICD-10 - Z80.0) 03/16/2024 Diverticulosis of la rge intestine without perforation or abscess without bleeding (ICD-10 - K57.30) 03/16/2024 Other hemorrhoids (ICD-10 - K64.8) 03/16/2024 Hiatal hernia (ICD-1 0 - K44.9) 03/16/2024 Gastritis (ICD-10 - K29.70) 03/16/2024 Gastric polyps (ICD- 10 - K31.7) 03/16/2024 Gastroesophageal ref lux disease (ICD-10 - K21.9) PLAN OF TREATMENT No Information
--- OUTSIDE RECORDS SUMMARY | 2024-04-27 10:42 | XMS_ITS ---
Author Organization Dank Brown DO, FACP Address [address] [place], [place] [id number] Care Team Providers Care Geriatric Nurse Practitioner Name Role Phone Dank Brown Primary Care Provider [phone] REASON FOR VISIT 2 month f/u Encounters Encounter Location Date Provider Diagnosis Dank Brown DO, FACP [address] [place] [phone] 04/22/2024 Dank Brown PLAN OF TREATMENT No Information
[2024-04-27 10:45] LABS: Basophils Percent Auto 0.8 % (0-2); Eosinophils Absolute Auto 0.1 X10*3/uL (0.0-0.4); Eosinophils Percent Auto 2.3 % (0-4); Hematocrit 42.1 % (37.0-47.0); Hemoglobin 14.4 g/dl (12.0-16.0); Imm Gran Abs Auto 0.03 X10*3/uL (0.00-0.03); Imm Gran Pct Auto 0.6 % (0.0-0.4); Lymphocytes Absolute Auto 1.3 X10*3/uL (1.2-4.9); Lymphocytes Percent Auto 27.7 % (20-40); Mean Corpuscular HGB Conc 34.2 g/dl (31.0-35.0); Mean Corpuscular Hemoglobin 31.7 pg (27.0-33.0); Mean Corpuscular Volume 92.7 fL (80.0-98.0); Mean Platelet Volume 9.4 fL (9.4-12.3); Monocytes Absolute Auto 0.4 X10*3/uL (0.1-1.2); Monocytes Percent Auto 8.2 % (2-11); Neutrophils Absolute Auto 2.9 x10*3/uL (2.0-8.3); Neutrophils Percent Auto 60.4 % (45-73); Platelet Count 241 X10*3/uL (160-400); Red Blood Count 4.54 X10*6/uL (4.20-5.50); White Blood Count 4.8 X10*3/uL (4.8-10.8)
[2024-04-27 10:52] LABS: Estimated Average Glucose 105 mg/dL; Hemoglobin A1C 131.2913 umol/L; Hemoglobin A1c % 5.3 % (<6.0); Total Hemoglobin (HGBA1C) 3810.2717 umol/L
[2024-04-27 11:19] LABS: Alanine Aminotransferase 18 U/L (0-31); Albumin Level 4.1 g/dL (3.5-5.0); Alkaline Phosphatase 63 U/L (39-117); Anion Gap 12 (12-20); Aspartate Amino Transferase 25 U/L (5-31); Bilirubin Direct 0.1 mg/dL (0.0-0.5); Bilirubin Total 0.5 mg/dL (0.0-1.0); Blood Urea Nitrogen 14 mg/dL (9-16); Calcium 8.8 mg/dL (8.4-10.2); Carbon Dioxide 28 mmol/L (22-29); Chloride 107 mmol/L (96-108); Cholesterol 201 mg/dL (<200); Estimated Glomerular Filt Rate > 60; Glucose Fasting 113 mg/dL (60-99); HDL Cholesterol 67 mg/dL (>40); LDL Cholesterol Calculated 113 mg/dL (<100); Magnesium 2.2 mg/dL (1.6-2.6); Potassium 4.7 mmol/L (3.3-5.1); Sodium 142 mmol/L (135-145); Total Protein 7.1 g/dL (6.5-8.0); Triglycerides 109 mg/dL (<150)
[2024-04-27 11:36] LABS: TSH reflex Free T4 2.72 uIU/mL (0.32-4.0); Vitamin D 25-OH Total 41.7 ng/mL (>30)
[2024-04-27 11:46] LABS: Folate 9.3 ng/mL (> or = 4.0); Vitamin B12 1332 pg/mL (200-900)
== END 2024-04-27 09:53 | disposition home or self-care (01) ==
LOC: HO.LAB 09:52
PROVIDERS: PCP Internal Medicine; Visit Provider Physician Assistant Medical
DX: Z00.00 Encounter for general adult medical examination without abnormal findings (principal); Z13.1 Encounter for screening for diabetes mellitus; Z13.220 Encounter for screening for lipoid disorders; Z13.0 Encounter for screening for diseases of the blood and blood-forming organs and certain disorders involving the immune mechanism
CPT/HCPCS: 36415; 80053; 80061; 80076; 82248; 82306; 82607; 82746; 83036; 83735; 84443; 85025

== ENCOUNTER 2024-10-21 12:51 | Outpatient (AMB) | payer MEDICARE, OTHER, SELFPAY ==
--- NOTE | 2024-10-21 12:58 | A.OFFPC_ITS ---
Vital Signs 10/21/24 12:59 10/21/24 13:44 Height 5 ft 3 in Weight 123 lb 3 oz BMI 21.8 BP 153/72 H 140/64 H Blood Pressure Location Rt brachial Position Sitting Respiration 14 Pulse 66 Pulse Source Pulse Oximeter Temp 97.8 F Temp Source Temporal Artery Scan Pulse Oximetry (%) 99 Oxygen Delivery Method Room Air Intake Visit Reasons: physical Small Products Ii Assembler Required: No Accompanied by: Self / Same As Patient Allergies environmental allergies Allergy (Verified 10/21/24 13:45) Sneezing Medication List - Last Reconciled 10/21/24 by Denice Lindsay PA-C cetirizine (Zyrtec) 10 mg PO DAILY citalopram 20 mg PO DAILY estradiol (Yuvafem) 10 mcg vaginal 2XW lorazepam 0.5 mg PO DAILY PRN omeprazole 1 cap PO DAILY Tobacco use date assessed: 10/21/24 Fall risk assessment: No Falls in past year Last assessed Fall Risk: 10/21/24 Dental Screening Dental Screen Date: 10/21/24 Did you have a dental visit in the last 12 months?: Yes Did you have a dental problem in the last 6 months where you did not have access to dental care?: No Was dental information given to patient?: Patient has dentist HPI physical HPI Details The patient is a 79-year-old female presenting for an annual physical examination. The patient has a history of hypertension, with a recent blood pressure reading of 140/64 mmHg, which is slightly elevated. She is not currently on antihypertensive medication, and there is a plan to monitor her blood pressure at home to ensure it remains stable. The patient experiences anxiety, for which she is prescribed citalopram. She reports using lorazepam as needed, although she rarely takes it. The patient has a diagnosis of gastroesophageal reflux disease (GERD) and is currently taking omeprazole daily. She reports occasional exacerbations of symptoms, particularly after consuming red wine and spaghetti sauce, which she manages by taking an additional dose of omeprazole. The patient has a known hiatal hernia, which may contribute to her GERD symptoms. The patient has a history of diverticulosis, identified during a colonoscopy in February 2024. The patient was previously diagnosed with osteopenia in her 50s and engages in regular strength training exercises. Her vitamin D levels are normal, and a bone scan is planned to reassess her bone health. During the physical examination, a possible thyroid nodule was palpated, and an ultrasound has been ordered for further evaluation. 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 difficile enteritis Hiatal hernia GERD (gastroesophageal reflux disease) Surgical History History of endoscopy (~03/16/24) Hx of appendectomy History of tonsillectomy and adenoidectomy Hx of tubal ligation History of back surgery History of esophagogastroduodenoscopy (EGD) H/O colonoscopy (~03/16/24) Family History Mother Stroke Father Parkinsons disease Sister Essential lymphedema Hypertension DM type 2 (diabetes mellitus, type 2) Heart attack Social History Housing: House Alcohol intake: current Alcohol intake frequency: a few times a week Patient Tobacco Use Status: Former Tobacco user Substance Use Type: Marijuana service: No Current occupational status: retired Cognitive needs: No Hearing needs: No Vision needs: Yes (rx glasses) Questionnaire PHQ-9 Over the last 2 weeks, how often have you been bothered by any of the following problems? 1. Little interest or pleasure in doing things: not at all 2. Feeling down, depressed, or hopeless: not at all 3. Trouble falling or staying asleep, or sleeping too much: not at all 4. Feeling tired or having little energy: not at all 5. Poor appetite or overeating: not at all 6. Feeling bad about yourself - or that you are a failure or have let yourself or your family down: not at all 7. Trouble concentrating on things, such as reading the newspaper or watching television: not at all 8. Moving or speaking so slowly that other people could have noticed. Or the opposite - being so fidgety or restless that you have been moving around a lot more than usual: not at all 9. Thoughts that you would be better off or of hurting yourself in some way: not at all Total score: 0 Depression Screening Interpretation: Negative Depression Screening Done: Yes 09377 - PHQ-9 Billing: Yes Source: Developed by Drs. Dank Davidson, Jayshree Quinones, Erwin Reardon and colleagues, with an educational sommer from [employer]. Thrive Questionnaire Date Thrive assessed: 10/21/24 I am a: Patient What is your living situation today?: I have a steady place to live Within the past 12 months, did the food you bought not last and you didn't have the money to get more?: Never true Within the past 12 months, did you worry whether your food would run out before you got money to buy more?: Never true Do you have trouble paying for medicines?: No Do you have trouble getting transportation to medical appointments?: No Do you have trouble paying your heating and electricity bill?: No Do you have trouble taking care of your child, family member or friend?: No Do you have trouble with day-to-day activities such as bathing, preparing meals, shopping, managing finances, etc.?: No Are you currently unemployed and looking for a job?: No Are you interested in more education?: No Please select the resources that you would like help with: None THRIVE Score: 0 AUDIT C Alcohol Use Questionnaire (AUDIT-C) 1. How often do you have a drink containing alcohol?: 2-3 times a week 2. How many drinks containing alcohol do you have on a typical day when you are drinking?: 1 or 2 3. How often do you have six or more drinks on one occasion?: Never Total Score: 3 Score Reviewed/Action Taken: No CELI-7 AMB Questionnaire CELI-7 Date CELI - 7 assessed: 10/21/24 Feeling nervous, anxious, or on edge: 0 = Not at all Not being able to stop or control worryin = Not at all Worrying too much about different things: 0 = Not at all Trouble relaxin = Not at all Being so restless that it is hard to sit still: 0 = Not at all Becoming easily annoyed or irritable: 0 = Not at all Feeling afraid as if something awful might happen: 0 = Not at all Total CELI-7 score (0-4 normal; 5-9 mild; 10-14 moderate; 15-21 severe): 0 Source: Developed by Drs. Dank Davidson, Jayshree Quinones, Erwin Reardon and colleagues, with an educational sommer from [employer]. CELI-7 Assessment Billing CELI-7 Assessment Tool: CELI-7 Assessment 35426 Review of Systems Const Details: - Cardiovascular: Denies chest pain, orthopnea, or syncope - Respiratory: Denies dyspnea or wheezing - Gastrointestinal: Reports occasional GERD symptoms exacerbated by certain foods; denies abdominal pain or bowel incontinence - Genitourinary: Denies urinary incontinence or dysuria - Neurological: Denies dizziness or falls All systems reviewed & are unremarkable except as noted in HPI and below Physical exam (Primary Care) Vital Signs: Last Vital Signs Temp 97.8 F 10/21/24 12:59 Pulse 66 10/21/24 12:59 Resp 14 10/21/24 12:59 BP 153/72 H 10/21/24 12:59 Pulse Ox 99 10/21/24 12:59 Oxygen Delivery Method Room Air 10/21/24 12:59 Care Plan Goal for BP management: <140/90 at Goal although patient will monitor her blood pressure and call us if the blood pressure goes over 140/90 BMI result Body Mass Index 21.8 Normal BMI Tobacco/Smoking Status: Tobacco use Status Tobacco use date assessed 10/21/24 10/21/24 13:03 Patient Tobacco Use Status Former Tobacco user 10/21/24 13:14 PHQ-9: PHQ-9 Score PHQ-9: Total score 0 10/21/24 13:03 Depression Screening Interpretation: Negative Thrive Assessment: Date of Thrive Assessment Date Thrive assessed 10/21/24 10/21/24 13:03 Const Other: Appearance: Alert. Oriented X3. No acute distress. Head: Normal external exam. Normocephalic. Atraumatic. Eyes: Pupils are equal, round, and reactive to light. Extraocular movements intact. Conjunctiva and sclera normal. Eyelids normal. Ears: External auditory canal normal. Tympanic membranes normal. Throat: Pharynx normal. Uvula midline. Moist mucous membranes. Neck: Normal inspection. Neck supple. Full range of motion. No adenopathy. No meningeal signs. No neck mass noted. Possible thyroid nodule detected; ultrasound recommended. Cardiovascular: Normal heart rate and rhythm. Heart sound normal. No murmurs noted. Pulses normal throughout. Respiratory: No respiratory distress. Painless inspiration. Breath sounds normal. No wheezes/rales/rhonchi noted. Chest nontender. No accessory muscle usage noted or decreased air movement noted. Abdomen: Soft and nontender. No distention noted. No organomegaly noted. Back: No costovertebral angle tenderness. Full range of motion noted. Skin: Skin warm and dry. Normal skin color. Normal skin turgor. No rashes/lesions/lacerations noted. Extremities: No lower extremity edema. Extremities exhibit normal range of motion. Extremities nontender. Neuro: Oriented X 3. No motor deficit. No sensory deficit. Reflexes normal. Results Reviewed Results Reviewed: - Labs: CBC normal, no anemia, normal white blood cell count and platelets, normal potassium and sodium levels, normal kidney function, fasting glucose 113 mg/dL, hemoglobin A1c 5.3%, normal liver enzymes, normal magnesium, normal total protein, albumin, and triglycerides, total cholesterol 201 mg/dL, LDL 113 mg/dL, HDL 67 mg/dL, elevated vitamin B12, normal vitamin D, normal folate, normal thy roid function Coding Level of Care Code Est Pt Level 4 (07784) Est Pt Prev Care >65y(91458) Diagnoses Essential hypertension I10 Anxiety disorder F41.9 GERD (gastroesophageal reflux disease) K21.9 Hiatal hernia K44.9 Diverticulosis K57.90 Osteopenia M85.80 Thyroid nodule E04.1 Additional Codes PHQ-9 - 50059 - PHQ-9 Billing: Yes ([id number]) CELI-7 Assessment Billing - CELI-7 Assessment Tool: CELI-7 Assessment 52422 ([id number]) Assessment & Plan Assessment & Plan (1) Essential hypertension: Code(s): I10 - Essential (primary) hypertension Category: Medical Plan: The patient's blood pressure was recorded at 140/64 mmHg, which is slightly elevated. She is not currently on antihypertensive medication, and it was advised to monitor her blood pressure at home to ensure it remains stable. (2) Anxiety disorder: Code(s): F41.9 - Anxiety disorder, unspecified Category: Medical Plan: The patient is prescribed citalopram for anxiety and uses lorazepam as needed, although she rarely takes it. (3) GERD (gastroesophageal reflux disease): Code(s): K21.9 - Gastro-esophageal reflux disease without esophagitis Category: Medical Plan: The patient is currently taking omeprazole daily for GERD and reports occasional exacerbations of symptoms after consuming red wine and spaghetti sauce. She manages these episodes by taking an additional dose of omeprazole. (4) Hiatal hernia: Comment: small per Dr. Murray H&P Code(s): K44.9 - Diaphragmatic hernia without obstruction or gangrene Category: Medical Plan: The patient has a known hiatal hernia, which may contribute to her GERD symptoms. (5) Diverticulosis: Code(s): K57.90 - Diverticulosis of intestine, part unspecified, without perforation or abscess without bleeding Category: Medical Plan: The patient has a history of diverticulosis, identified during a colonoscopy in February 2024. (6) Osteopenia: Code(s): M85.80 - Other specified disorders of bone density and structure, unspecified site Category: Medical Plan: The patient was previously diagnosed with osteopenia in her 50s and engages in regular strength training exercises. A bone scan is planned to reassess her bone health. (7) Thyroid nodule: Code(s): E04.1 - Nontoxic single thyroid nodule Category: Medical Plan: During the physical examination, a possible thyroid nodule was palpated, and an ultrasound has been ordered for further evaluation. Plan Plan Patient was informed and verbally consented to the use of an ambient scribe for clinic note documentation during this visit. 1. Hypertension The patient's blood pressure was recorded at 140/64 mmHg, which is slightly elevated. She is not currently on antihypertensive medication, and it was advised to monitor her blood pressure at home to ensure it remains stable. 2. Anxiety The patient is prescribed citalopram for anxiety and uses lorazepam as needed, although she rarely takes it. 3. Gastroesophageal Reflux Disease (Gerd) The patient is currently taking omeprazole daily for GERD and reports occasional exacerbations of symptoms after consuming red wine and spaghetti sauce. She manages these episodes by taking an additional dose of omeprazole. 4. Hiatal Hernia The patient has a known hiatal hernia, which may contribute to her GERD symptoms. 5. Diverticulosis The patient has a history of diverticulosis, identified during a colonoscopy in February 2024. 6. Osteopenia The patient was previously diagnosed with osteopenia in her 50s and engages in regular strength training exercises. A bone scan is planned to reassess her bone health. 7. Possible Thyroid Nodule During the physical examination, a possible thyroid nodule was palpated, and an ultrasound has been ordered for further evaluation. During the visit, I discussed with the patient the importance of monitoring her blood pressure at home to ensure it remains stable, given the slightly elevated reading of 140/64 mmHg. We also reviewed her current medications, including citalopram for anxiety and omeprazole for GERD, and discussed the management of her symptoms, particularly the exacerbations related to dietary choices. I recommended a thyroid ultrasound to evaluate a possible nodule detected during the physical examination and advised a bone scan to reassess her osteopenia status. Orders: Orders US thyroid Today E04.1 - Nontoxic single thyroid nodule XR DEXA axial skeleton Today M81.0 - Age-related osteoporosis without current pathological fracture Patient Instructions: - Monitor blood pressure at home regularly and report any consistent elevations. - Continue taking citalopram and omeprazole as prescribed. - Avoid foods that exacerbate GERD symptoms, such as red wine and spaghetti sauce. - Schedule and attend the thyroid ultrasound and bone scan appointments.
[2024-10-21 12:59] VITALS: BP 153/72; PULSE 66; RESP 14; TEMP 36.6; O2SAT 99; BMI 21.8
--- OUTSIDE RECORDS SUMMARY | 2024-10-21 13:25 | XMS_ITS | Clinical Summary ---
Author Organization [facility] Address [address] [place] [address] Phone Care Team Providers Care Metrology Technician Name Role Phone KevinDank kaufman Primary Care Provider [phone] Family History Medical History Relation Name Comments [...] Health Maintenance Due Date Last Done Comments Cholesterol Screening (Lipid Panel) 02/18/2022 Falls Risk Assessment 02/18/2022 Medicare Annual Wellness Visit 02/18/2022 Osteoporosis Screening (Bone Density Screening) 02/18/2022 Social Influencers of Health Screening 02/18/2022 Depression Screening 03/18/2024 COVID-19 Vaccine ( season) 2024 11/26/2023, 12/18/2021, 07/10/2021, Additional history exists Influenza Vaccine (#1) 2024 4, 02/04/2023, 12/18/2021, Additional history exists DTaP,Tdap,and Td Vaccines (2 - Td or Tdap) 01/17/2026 01/18/2016 Hepatitis A Vaccines Aged Out 09/06/2016, 02/15/2016, 01/18/2016 No longer eligible based on patient's age to complete this topic Hepatitis B Vaccines Completed 09/06/2016, 02/15/2016, 01/18/2016 Pneumococcal Vaccine: 50+ Years Completed 12/21/2018, 08/20/2012 Zoster Vaccines Completed 12/30/2018, 10/2018, 08/20/2012 Hepatitis C Screening Completed 11/24/2019 RSV Immunization Adult Patients Completed 02/04/2023 Breast Cancer Screening Discontinued 03/27/19, 03/13/2023, 03/07/2022, [...] age to complete this topic Meningococcal B Vaccine Aged Out No l onger eligible based on patient's age to complete [...] for breast cancer from Last 3 Months or Most Recently Relevant to Health Maintenance Results * MG Mammo Digital Screening w Rad bilat (03/27/2024 2:12 PM EST) Anatomical Region Laterality Modality Breast Bilateral Mammography 03/27/2024 2:50 PM EST Impressions 03/27/2024 2:55 PM EST No mammographic evidence of malignancy. No suspicious interval change. A negative mammogram in the presence of a clinically suspicious palpable abnormality does not preclude the possibility of malignancy or alter the indications for biopsy. ASSESSMENT: BI-RADS 1: NEGATIVE RECOMMENDATION(S): 1: Routine screening mammogram BILATERAL in 1 year. -------- FINAL REPORT -------- Dictated By: Joey Jimenez Dictated Date: 03/27/2024 14:50 ET Assigned Physician: Joey Jimenez Reviewed and Electronically Signed By: Joey Jimenez Signed Date: 03/27/2024 14:55 ET Workstation ID: [id number] Transcribed By: Self Edit Transcribed Date: 03/27/2024 14:50 ET Narrative 03/27/2024 2:55 PM EST EXAM: SCREENING MAMMOGRAPHY, BILATERAL HISTORY: SCREENING. Family history of breast cancer-mother age 97, sister age 50 COMPARISON: 03/12/2023, 03/07/2022, 02/28/2021 TECHNIQUE: Synthesized CC and MLO projections of each breast. Tomosynthesis of each breast in the CC and MLO projections. ADDITIONAL IMAGING: None Computer-aided detection was employed with the [employer]iddsee AI 3-D. TISSUE DENSITY: The breasts are heterogeneously dense, which may obscure small masses. (BI-RADS category C) FINDINGS: RIGHT BREAST: No suspicious mass. No suspicious calcification. No distortion. No additional suspicious right breast findings LEFT BREAST: No suspicious mass. No suspicious calcification. No distortion. No additional suspicious left breast findings Procedure Note Joey Jimenez MD - 03/27/2024 EXAM: SCREENING MAMMOGRAPHY, BILATERAL HISTORY: SCREENING. Family history of breast cancer-mother age 97,sister age 50 COMPARISON: 03/12/2023, 03/07/2022, 02/28/2021 TECHNIQUE: Synthesized CC and MLO projections of each breast.Tomosynthesis of each breast in the CC and MLO projections. ADDITIONAL IMAGING: None Computer-aided detection was employed with the Viddsee AI 3-D. TISSUE DENSITY: The breasts are [...] Signed Date: 03/27/2024 14:55 ET Workstation ID: [id number] Transcribed By: Self Edit Transcribed Date: 03/27/2024 14:50 ET us Self Referral Sppl IMG BI PROCEDURES Final Resul t from Last 3 Months or Most Recently Relevant to Health Maintenance Insurance MEDICARE [facility] Care Teams Metrology Technician Relationship Specialty Start Date End Date Dank Brown DO [address] [place] [address] [place] [phone] PCP - General Internal Medicine 03/20/24
--- OUTSIDE RECORDS SUMMARY | 2024-10-21 13:25 | XMS_ITS | Encounter Summary ---
Author Organization [facility] Address [address] [facility] [address] [place] [phone] Phone Care Team Providers Care Analytical Chemist Name Role Phone Dnak Brown DO Unavailable Zeus Salinas MD Unavailable Dank Brown DO Primary Care Provider [phone] Reason for Referral * MRI/CAT Scan - Closed Specialty Diagnoses / Procedures Referred By Milo conner Referred To Contact Radiology Diagnoses Other chest pain Procedures NC Myocardial Perfusion Exercise Multiple NC Myocardial Perfusion Pharmacologic Stress Multiple Demarcus Solis MD Phone: tel: fax: mailto:[email or web address] Referral ID Status Reason Start Date Expiration Date Visits Re quested Visits Authorized [id number] Closed 05/21/2022 05/21/2023 1 1 Encounter Details Date Type Department Care Team (Latest Contact Info) Description 08/15/2022 Ancillary Orders [facility] [address] [place] [address] [address] Floor, [address] [place] [address] Demarcus Solis MD [address] [facility], [address] [place] [id number] [email or web address] Other chest pain Social History Tobacco Use Types Packs/Day Years Used Date Smoking Tobacco: Former Cigarettes 1.5 24.1 0 11/16/1958 - 12/16/1982 Smokeless Tobacco: Never Education Answer Date Recorded Are you interested in more education? Not on kath e 07/13/2022 Are you concerned about learning? Not on file 07/13/2022 No 07/13/2022 No 07/13/2022 Digital Access Answer Date Recorded No 08/07/2022 No 08/07/2022 Reliable internet access at home? Not on file 08/07/2022 Device with a working camera? Not on file Comments No Sex and Gender Information Value Date Recorded Sex Assigned at Female 06/12/2021 8:29 AM EDT Legal Sex Female 10:06 PM EDT Gender Identity Female 06/12/2021 8:29 AM EDT Sexual Orientation Not on file documented as of this encounter Plan of Treatment Not on file documented as of this encounter Results * NC Myocardial Perfusion Exercise Multiple (08/15/2022 11:13 AM EDT) Nuc Stress EF 61 % LV Systolic Volume 32 mL LV Diastolic Volume 78 mL EF 59 % LV Systolic Volume Index 34 mL/m2 LV Diastolic Volume Index 87 mL/m2 Anatomical Region Laterality Modality Heart, Vascular Ultrasound Narrative 08/15/2022 4:16 PM EDT Myocardial perfusion stress test imaging report- Normal No significant myocardial perfusion defects were seen at stress and at rest images Normal left ventricular systolic function. LV EF is 59% at rest and 61% at stress. TID 1.1 Conclusion; No ischemia or infarction seen Normal left ventricular systolic function. Nuclear Study Quality TYPE OF STUDY: Myocardial Perfusion Imaging after exercise utilizing a standard Domenico protocol with gated SPECT. PROTOCOL USED: One day rest- stress protocol in the supine and prone position. Images were obtained in gated tomographic technique. Images were processed in SPECT format, reconstructed tomographically and compared [id number] in short axis, horizontal long axis and vertical long axis. DOSE: Technetium 99m Sestamibi 7.3 mCi injected intravenously in the left antecubital vein at rest on 08/15/2022 with post injection scan time of 60 minutes. Technetium 99m Sestamibi 21.8 mCi injected intravenously in the right arm antecubital vein during stress on 08/15/2022 with post injection scan time of 20 minutes. Overall image quality is good. Study was gated successfully. The lung to heart ratio is 0.25 Response to Stress REPORT : Weight: 120 lb BMI: 21.26 Denisse Ace exercised for 7:14 min on a DOMENICO protocol achieving 10.10 METS. Test terminated due to fatigue. Baseline resting HR was 64. Max heart rate achieved was 133 (91% MPHR). 1. EKG - Baseline EKG showed normal sinus rhythm. No ischemic EKG changes noted with exercise. 2. SYMPTOMS - no chest pain 3. EXERCISE PHYSIOLOGY -hypertensive throughout. Blood pressure at baseline is 150/80, up to 206/84 at peak exercise 154/80 on discharge from the stress lab. Excellent functional capacity for age. 4. ARRHYTHMIAS -none Conclusion : Normal stress test with no ischemic EKG changes noted and no chest pain reported. Nuclear images pending and will be reported separately. See attached stress report for full details. Aj Gómez FORECLOSURE SPECIALIST . Perfusion Comments Stress LV cavity volume was 55 mL. Resting LV cavity volume was 51 mL. The stress/rest perfusion ratio is 1.08. There is no evidence of transient ischemic dilation (TID). The TID ratio was 1.1. Stress Function Comments Left ventricular function post-stress was normal. Post-stress ejection fraction was 61%. The stress end diastolic cavity size is normal. Stress end diastolic index: 87 mL/m2. The stress end systolic cavity size is normal. Stress end systolic index: 34 mL/m2. Nuclear Prior Study There is no prior study available for comparison. Rest Function Comments Left ventricular function at rest was normal. Resting ejection fraction was 59%. The rest end diastolic cavity size is normal. Rest end diastolic index: 78 mL. The rest end systolic cavity size is normal. Rest end systolic index: 32 mL. Perfusion Scoring Stress Summed Score: 0 Percent Normal: 0.00% The left ventricular perfusion is normal. Perfusion Scoring Resting Summed Score: 0 Percent Normal: 0.00% The left ventricular perfusion is normal. Procedure Note Demarcus Solis MD - 08/15/2022 Myocardial perfusion stress test imaging report- Normal No significant myocardial perfusion defects were seen at stress and atrest images Normal left ventricular systolic function. LV EF is 59% at rest and 61% at stress. TID 1.1 Conclusion; No ischemia or infarction seen Normal left ventricular systolic function. us Demarcus Solis MD CV NM CARDIAC Final Re sult documented in this encounter Visit Diagnoses Diagnosis Other chest pain- Primary Other chest pain documented in this encounter Care Teams Analytical Chemist Relationship Specialty Start Date End Date Dank Brown DO [address] [place] [id number] PCP - General Internal Medicine 03/16/17 Dank Brown DO [address] [place] [id number] Historical LMR Provider 01/01/17 Zeus Salinas MD [address] [place] [address], [address] [place] [id number] [email or web address] Historical LMR Provider 01/01/17 documented as of this encounter Additional Source Comments The information contained in this document represents components of the legal health record. It is not the complete legal health record.[facility]
[2024-10-21 13:44] VITALS: BP 140/64
== END 2024-10-21 13:46 | disposition home or self-care (01) ==
LOC: HO.HMCSH 12:51
PROVIDERS: PCP Internal Medicine; Visit Provider Physician Assistant Medical
DX: Z00.00 Encounter for general adult medical examination without abnormal findings (principal); I10 Essential (primary) hypertension; F41.9 Anxiety disorder, unspecified; K21.9 Gastro-esophageal reflux disease without esophagitis; K44.9 Diaphragmatic hernia without obstruction or gangrene; K57.90 Diverticulosis of intestine, part unspecified, without perforation or abscess without bleeding; M85.80 Other specified disorders of bone density and structure, unspecified site; E04.1 Nontoxic single thyroid nodule

== ENCOUNTER → 2024-10-21 12:51 | Outpatient (BNVA) | payer MEDICARE, OTHER, SELFPAY | PROVIDERS: PCP Internal Medicine; Visit Provider Physician Assistant Medical | DX: Z00.00 Encounter for general adult medical examination without abnormal findings (principal); I10 Essential (primary) hypertension; F41.9 Anxiety disorder, unspecified; K21.9 Gastro-esophageal reflux disease without esophagitis; K44.9 Diaphragmatic hernia without obstruction or gangrene; K57.90 Diverticulosis of intestine, part unspecified, without perforation or abscess without bleeding; M85.80 Other specified disorders of bone density and structure, unspecified site; E04.1 Nontoxic single thyroid nodule | CPT/HCPCS: 96127; 99212; 99397 ==

== ENCOUNTER 2024-12-14 12:58 | Outpatient (REF) | payer MEDICARE, OTHER, SELFPAY ==
--- NOTE | ~2024-12-14 | US_ITS ---
EXAMINATION: US THYROID HISTORY: E04.1 - Nontoxic single thyroid nodule TECHNIQUE: Real-time grayscale ultrasound imaging was performed and images were reviewed. COMPARISON: Correlation is made with a chest CT without contrast dated 06/06/2022. FINDINGS: SIZE: The right thyroid lobe measures 4.2 x 1.3 x 1.3 cm. The left thyroid lobe measures 4.2 x 1.4 x 1.1 cm. The isthmus measures 2 mm. FLOW: Flow to the gland is increased. ECHOGENICITY: The echotexture of the gland is homogeneous. NODULES: Multiple colloid nodules and spongiform nodules are identified measuring up to 6 mm in size. No suspicious solid nodules are identified. US/US thyroid IMPRESSION: No suspicious thyroid nodules are identified. ACR TI-RADS Guidelines TR1 (0 points): Benign. No follow-up or biopsy required TR2 (2 points): Not Suspicious. No biopsy or follow up indicated TR3 (3 points): Mildly Suspicious. FNA if >= 2.5 cm, Follow if >= 1.5 cm TR4 (4-6 points): Moderately Suspicious. FNA if >= 1.5 cm, Follow if >= 1.0 cm TR5 (>=7 points): Highly Suspicious. FNA if >= 1.0 cm, Follow if >= 0.5 cm Electronically signed by: Dank Levine MD 12/14/2024 02:30 PM EDT
--- NOTE | ~2024-12-14 | MM_ITS ---
EXAMINATION: DXA BONE DENSITY AXIAL HISTORY: M81.0 - Age-related osteoporosis without current pathological fracture TECHNIQUE: LSAT Freedom Dual energy absorptiometry (DEXA) of the lumbar spine, total left hip, and femoral neck was performed. COMPARISON: There are no prior studies for comparison. FINDINGS: The bone mineral density of the lumbar spine is 0.884 g/cm2, corresponding to a T-score of -2.3, and a Z-score of -0.3. This is indicative of osteopenia. The bone mineral density of the left total hip is 0.786 g/cm2, corresponding to a T-score of -1.8, and a Z-score of 0.3. This is indicative of osteopenia. The bone mineral density of the left femoral neck is 0.754 g/cm2, corresponding to a T-score of -2.0, and a Z-score of 0.2. This is indicative of osteopenia. FRACTURE RISK: The FRAX index suggests a risk of major osteoporotic fracture of 13.7%, and of hip fracture 4.1%. MM/XR DEXA axial skeleton IMPRESSION: Based on bone mineral density, and according to World Health Organization (WHO) criteria, the diagnosis is consistent with osteopenia. Statistically, 68% of repeat scans fall within 1 SD (+/- 0.010 g/cm2 for AP spine L1-L4) and 1 SD (+/- 0.012 g/cm2 for femur total) FRAX is a trademark of the [employer] [place] [employer] Met[employer] Disease, a World Health Organization (WHO) Collaborating Center. Electronically signed by: Dank Levine MD 12/14/2024 02:42 PM EDT
== END 2024-12-14 12:59 | disposition home or self-care (01) ==
LOC: HO.US 12:58
PROVIDERS: PCP Internal Medicine; Visit Provider Physician Assistant Medical
DX: M81.0 Age-related osteoporosis without current pathological fracture (principal); E04.1 Nontoxic single thyroid nodule
CPT/HCPCS: 76536; 77080

== ENCOUNTER → 2024-12-14 13:00 | Outpatient (BNV) | payer MEDICARE, OTHER, SELFPAY | PROVIDERS: PCP Internal Medicine; Visit Provider Radiology Diagnostic Radiology | DX: E28.39 Other primary ovarian failure (principal); E04.1 Nontoxic single thyroid nodule | CPT/HCPCS: 76536; 77080 ==

== ENCOUNTER 2025-03-03 12:57 | Outpatient (AMB) | payer MEDICARE, OTHER, SELFPAY ==
--- NOTE | 2025-03-03 12:58 | A.OFFPC_ITS ---
Vital Signs 03/03/25 13:00 Height 5 ft 3 in Weight 123 lb 0.1 oz BMI 21.8 BP 154/67 H Blood Pressure Location Lt brachial Pulse 63 Pulse Source Pulse Oximeter Temp 97.4 F Pulse Oximetry (%) 95 Intake Visit Reasons: 4 month follow up Intake Note: Has had a dry cough for years seems to be escalating. Allergies environmental allergies Allergy (Verified 03/03/25 13:55) Sneezing Medication List - Last Reconciled 03/03/25 by Denice Lindsay PA-C calcium citrate 500 mg (2 x 250 mg calcium) PO BID 90 days cetirizine (Zyrtec) 10 mg PO DAILY cholecalciferol (vitamin D3) 50 mcg PO DAILY citalopram 20 mg PO DAILY estradiol (Yuvafem) 10 mcg vaginal 2XW lorazepam 0.5 mg PO DAILY PRN losartan 25 mg PO DAILY omeprazole 20 mg PO DAILY Tobacco use date assessed: 10/21/24 Dental Screening Dental Screen Date: 03/03/25 Did you have a dental visit in the last 12 months?: Yes Did you have a dental problem in the last 6 months where you did not have access to dental care?: No Was dental information given to patient?: Patient has dentist HPI HPI Comments History of Present Illness Details History of Present Illness The patient is a 79 year old female presenting for a four-month follow-up visit for management of high blood pressure and a chronic cough. She reports a history of a dry cough without hemoptysis. Her last visit with a oceanographer physical was a year ago, which resulted in a diagnosis of mild emphysema, though her pulmonary function test was normal with no evidence of obstructive airway disease. She has a history of smoking for approximately 20 years but quit in 1979. She currently smokes marijuana via pre-rolled paper joints. A CT scan in 2022 showed mild scarring in the right middle lobe, but no pulmonary nodule was noted. She has a history of osteopenia and takes a calcium-magnesium combination supplement, acknowledging the dose is insufficient. The patient has also been diagnosed with small, benign colloid thyroid nodules, which do not currently require further imaging. Her medications include Citalopram, which she has been on for years and finds effective, and Lorazepam for as-needed use, which she rarely requires. Regarding health screenings, the patient is scheduled for a mammogram in March and has previously had a colonoscopy, after which she was told she would not need another. She also uses Yuvafem vaginal inserts. Social History - Tobacco use: The patient is a former s moker, having quit in 1979 after smoking for about 20 years. - Substance use: The patient currently s mokes marijuana in pre-rolled paper joints. [facility] Medical History (Updated 03/03/25 @ 13:59 by Denice Lindsay PA-C) Healthcare maintenance Chronic cough Osteopenia Thyroid nodule Essential hypertension Hemorrhoids History of mammogram (~03/27/24) Diverticulosis Bronchiectasis without complication Lumbar herniated disc Renal cyst, right Plantar fasciitis Depression Anxiety disorder Mild hypercholesterolemia Emphysema of lung Former smoker, stopped smoking in distant past Cough Smokes less than 1 pack a day with greater than 20 pack year history Hemoptysis [id number] condition Sigmoid diverticulitis C. difficile enteritis Hiatal hernia GERD (gastroesophageal reflux disease) Surgical History History of endoscopy (~03/16/24) Hx of appendectomy History of tonsillectomy and adenoidectomy Hx of tubal ligation History of back surgery History of esophagogastroduodenoscopy (EGD) H/O colonoscopy (~03/16/24) Family History Mother Stroke Father Parkinsons disease Sister Essential lymphedema Hypertension DM type 2 (diabetes mellitus, type 2) Heart attack Social History Housing: House Alcohol intake: current Alcohol intake frequency: a few times a week Patient Tobacco Use Status: Former Tobacco user Substance Use Type: Marijuana service: No Current occupational status: retired Cognitive needs: No Hearing needs: No Vision needs: Yes (rx glasses) Questionnaire PHQ-9 Over the last 2 weeks, how often have you been bothered by any of the following problems? 1. Little interest or pleasure in doing things: not at all 2. Feeling down, depressed, or hopeless: not at all 3. Trouble falling or staying asleep, or sleeping too much: not at all 4. Feeling tired or having little energy: not at all 5. Poor appetite or overeating: not at all 6. Feeling bad about yourself - or that you are a failure or have let yourself or your family down: not at all 7. Trouble concentrating on things, such as reading the newspaper or watching television: not at all 8. Moving or speaking so slowly that other people could have noticed. Or the opposite - being so fidgety or restless that you have been moving around a lot more than usual: not at all 9. Thoughts that you would be better off or of hurting yourself in some way: not at all Total score: 0 Depression Screening Interpretation: Negative Depression Screening Done: Yes 83866 - PHQ-9 Billing: Yes Source: Developed by Drs. Dank Davidson, Jayshree Quinones, Erwin Reardon and colleagues, with an educational sommer from [employer]. Thrive Questionnaire Date Thrive assessed: 10/21/24 I am a: Patient What is your living situation today?: I have a steady place to live Within the past 12 months, did the food you bought not last and you didn't have the money to get more?: Never true Within the past 12 months, did you worry whether your food would run out before you got money to buy more?: Never true Do you have trouble paying for medicines?: No Do you have trouble getting transportation to medical appointments?: No Do you have trouble paying your heating and electricity bill?: No Do you have trouble taking care of your child, family member or friend?: No Do you have trouble with day-to-day activities such as bathing, preparing meals, shopping, managing finances, etc.?: No Are you currently unemployed and looking for a job?: No Are you interested in more education?: No Please select the resources that you would like help with: None THRIVE Score: 0 AUDIT C Alcohol Use Questionnaire (AUDIT-C) 1. How often do you have a drink containing alcohol?: 2-3 times a week 2. How many drinks containing alcohol do you have on a typical day when you are drinking?: 1 or 2 3. How often do you have six or more drinks on one occasion?: Never Total Score: 3 Score Reviewed/Action Taken: No CELI-7 AMB Questionnaire CELI-7 Date CELI - 7 assessed: 08/06/25 Feeling nervous, anxious, or on edge: 0 = Not at all Not being able to stop or control worryin = Not at all Worrying too much about different things: 0 = Not at all Trouble relaxin = Not at all Being so restless that it is hard to sit still: 0 = Not at all Becoming easily annoyed or irritable: 0 = Not at all Feeling afraid as if something awful might happen: 0 = Not at all Total CELI-7 score (0-4 normal; 5-9 mild; 10-14 moderate; 15-21 severe): 0 Source: Developed by Drs. Dank Davidson, Jayshree Quinones, Erwin Reardon and colleagues, with an educational sommer from [employer]. CELI-7 Assessment Billing CELI-7 Assessment Tool: CELI-7 Assessment 94244 Review of Systems Narrative Review of Systems - Cardiovascular: Reports elevated blood pressure readings at home. - Respiratory: Reports a chronic, dry cough. - Denies hemoptysis. Const All systems reviewed & are unremarkable except as noted in HPI and below Physical exam (Primary Care) Vital Signs: Last Vital Signs Temp 97.4 F 03/03/25 13:00 Pulse 63 03/03/25 13:00 BP 154/67 H 03/03/25 13:00 Pulse Ox 95 03/03/25 13:00 Care Plan Goal for BP management: <140/90 patient will be started on losartan 50 mg and return in 1 month for blood pressure check she has a chronic cough therefore lisinopril was not started due to the BMI result Body Mass Index 21.8 Normal BMI Tobacco/Smoking Status: Tobacco use Status Tobacco use date assessed 10/21/24 03/03/25 12:58 Patient Tobacco Use Status Former Tobacco user 03/03/25 12:58 PHQ-9: PHQ-9 Score PHQ-9: Total score 0 03/03/25 13:08 Depression Screening Interpretation: Negative Thrive Assessment: Date of Thrive Assessment Date Thrive assessed 10/21/24 03/03/25 12:58 Narrative Physical Exam Appearance: Alert. Oriented X3. No acute distress. Head: Normal external exam. Normocephalic. Atraumatic. Eyes: Pupils are equal, round, and reactive to light. Extraocular movements intact. Conjunctiva and sclera normal. Eyelids normal. Throat: Pharynx normal. Uvula midline. Moist mucous membranes. Neck: Normal inspection. Neck supple. Full range of motion. Cardiovascular: Normal heart rate and rhythm. Respiratory: No respiratory distress. Painless inspiration. Back: Full range of motion noted. Skin: Skin warm and dry. Normal skin color. Normal skin turgor. No rashes/lesions/lacerations noted. Extremities: Extremities exhibit normal range of motion. Neuro: Oriented X 3. No motor deficit. No sensory deficit. Reflexes normal. Office Procedures Flu Questionnaire Does the patient have a severe egg allergy?: No Does the patient have severe life threatening allergies?: No Does the patient have a fever or illness today?: No Has the patient ever had Guillain-[place] Syndrome?: No Has the patient ever had any past reaction to a flu shot?: No Immunizations Fluarix [id number] (PF) 45 mcg (15 mcg x 3)/0.5 mL IM syringe Performing Provider: Denice Lindsay PA-C Performing Location: [facility] Documented (not given) by: Annie Guidry on 03/03/25 13:09 Reason Not Given: Received Previously Results Reviewed Results Reviewed: - Prior CT Scan (2022): Revealed mild scarring in the right middle lobe with no pulmonary nodules identified. - Prior Pulmonary Function Test: Reported as normal with no evidence of obstructive airway disease. - Prior Bone Density Scan: Showed osteopenia. - T-score was -2.3 in the lumbar spine and -1.8 and -1.2 in the left hip. - The 10-year risk for a major hip fracture is 4%. - Prior Thyroid Ultrasound: Showed small, benign, non-cancerous colloid nodules with normal blood flow and no suspicious features. Coding Level of Care Code Est Pt Level 4 (40743) Add On Problem Visit Only Diagnoses Essential hypertension I10 Chronic cough R05.3 Osteopenia M85.80 Thyroid nodule E04.1 Healthcare maintenance Z00.00 Additional Codes CELI-7 Assessment Billing - CELI-7 Assessment Tool: CELI-7 Assessment 96094 ([id number]) PHQ-9 - 68344 - PHQ-9 Billing: Yes ([id number]) Time Spent (min) 60 Assessment & Plan Assessment & Plan (1) Essential hypertension: Code(s): I10 - Essential (primary) hypertension Category: Medical Plan: Based on the patient's reports of high blood pressure readings at home, she will be started on losartan 25 mg once daily, which is the lowest available dose. This medication was chosen over lisinopril to avoid the potential side effect of a cough, which the patient already experiences. Side effects were discussed, including mild GI upset, fatigue, dizziness, and the rare risk of hyperkalemia. A basic metabolic panel will be ordered to be completed in approximately two weeks to monitor kidney function and potassium levels. A follow-up visit is scheduled in one month to check her blood pressure response. (2) Chronic cough: Code(s): R05.3 - Chronic cough Category: Medical Plan: To address the patient's chronic cough and for peace of mind, a CT scan of the chest without IV contrast will be ordered to rule out any new or enlarging pulmonary nodules. If contrast is deemed necessary, blood work will be required beforehand. (3) Osteopenia: Code(s): M85.80 - Other specified disorders of bone density and structure, unspecified site Category: Medical Plan: The patient declined treatment with Fosamax. A prescription for vitamin D and calcium will be provided to supplement her intake, with a target of 500-600 mg of calcium twice daily. A repeat bone density scan is recommended in two years to monitor for any changes. (4) Thyroid nodule: Comment: IMPRESSION: No suspicious thyroid nodules are identified. Code(s): E04.1 - Nontoxic single thyroid nodule Category: Medical Plan: The patient's thyroid nodules are small, benign, and non-suspicious. No further imaging is needed at this time, with a plan to re-evaluate annually if necessary or if any new symptoms develop. (5) Healthcare maintenance: Code(s): Z00.00 - Encounter for general adult medical examination without abnormal findings Category: Medical Plan: The patient reports her citalopram is working well and will continue her current dose. She will also continue to have a prescription for lorazepam for as-needed use in stressful situations. Plan Plan Patient was informed and verbally consented to the use of an ambient scribe for clinic note documentation during this visit. 1. Hypertension Based on the patient's reports of high blood pressure readings at home, she will be started on losartan 25 mg once daily, which is the lowest available dose. This medication was chosen over lisinopril to avoid the potential side effect of a cough, which the patient already experiences. Side effects were discussed, including mild GI upset, fatigue, dizziness, and the rare risk of hyperkalemia. A basic metabolic panel will be ordered to be completed in approximately two weeks to monitor kidney function and potassium levels. A follow-up visit is scheduled in one month to check her blood pressure response. 2. Chronic Cough/Mild Emphysema To address the patient's chronic cough and for peace of mind, a CT scan of the chest without IV contrast will be ordered to rule out any new or enlarging pulmonary nodules. If contrast is deemed necessary, blood work will be required beforehand. 3. Osteopenia The patient declined treatment with Fosamax. A prescription for vitamin D and calcium will be provided to supplement her intake, with a target of 500-600 mg of calcium twice daily. A repeat bone density scan is recommended in two years to monitor for any changes. 4. Benign Thyroid Nodules The patient's thyroid nodules are small, benign, and non-suspicious. No further imaging is needed at this time, with a plan to re-evaluate annually if necessary or if any new symptoms develop. 5. Health Maintenance The patient reports her citalopram is working well and will continue her current dose. She will also continue to have a prescription for lorazepam for as-needed use in stressful situations. Discussion Notes I discussed the decision to start losartan for her blood pressure, explaining that I chose it over the more common lisinopril to avoid exacerbating her existing cough. We reviewed potential side effects of losartan, including dizziness, fatigue, and the rare but important risk of high potassium, and I explained the need for a blood test in two weeks to monitor her kidney function and potassium levels. I explained that I was ordering a CT scan of her chest due to her chronic cough, mainly for reassurance and to rule out any new nodules. We discussed her bone health and she declined to take Fosamax, a decision I supported. I educated her on the importance of adequate calcium and vitamin D intake and prescribed supplements, with a plan to repeat her bone density scan in two years. I reassured her that her thyroid nodules were benign and do not require further follow-up unless symptoms change. We agreed on a follow-up appointment in one month to assess her response to the new blood pressure medication. Orders: Orders CT chest wo IV con Today R05.3 - Chronic cough, Z87.891 - Personal history of nicotine dependence Basic Metabolic Panel Today Z00.00 - Encounter for general adult medical examination without abnormal findings Influenza [id number] Immunization Today Z23 - Encounter for immunization Medications: New losartan 25 mg PO DAILY 90 tabs 3RF calcium citrate 500 mg (2 x 250 mg calcium) PO BID 360 tabs 3RF 90 days M85.80 - Other specified disorders of bone density and structure, unspecified site cholecalciferol (vitamin D3) 50 mcg PO DAILY 90 caps 3RF M85.80 - Other specified disorders of bone density and structure, unspecified site Patient Instructions: Patient Instructions - Begin taking losartan 25 mg once a day for your high blood pressure. - Check your blood pressure about two to three hours after taking the medication to see how it is working. - Be aware that losartan may cause dizziness, fatigue, or mild stomach upset for the first two weeks. - Go for blood work in about two weeks to check your kidney function and potassium levels. - You do not need to be fasting for this blood test. - We have ordered a CT scan of your chest to check on your cough. - You will be prescribed Vitamin D and Calcium to help strengthen your bones. - The goal is to take 500-600 mg of calcium twice a day. - If you feel that your heart is racing, let our office know. - Please schedule a follow-up appointment in one month to check on your blood pressure.
[2025-03-03 13:00] VITALS: BP 154/67; PULSE 63; TEMP 36.3; O2SAT 95; BMI 21.8
--- OUTSIDE RECORDS SUMMARY | 2025-03-03 17:03 | XMS_ITS | Encounter Summary ---
Author Organization [facility] Address [address] [place] [id number] Phone Care Team Providers Care Kitchen Stewardess Name Role Phone Dank Brown DO Unavailable Zeus Salinas MD Unavailable Juna Mckeon MD Unavailable Dank Brown DO Primary Care Provider [phone] Encounter Details Date Type Department Care Team (Late st Contact Info) Description 03/26/2017 Procedure Pass [facility], Ct Scan - [address] [id number] Social History Tobacco Use Types Packs/Day Years [...] on file documented as of this encounter Visit Diagnoses Not on filedocumented in this encounter Additional Health Concerns Infection Onset Date Last Indicated Resolved Time CoV-Risk 06/12/2021 06/12/2021 06/23/2021 1:21 AM EDT documented as of this encounter Care Teams Kitchen Stewardess Relationship Specialty Start Date End Date Dank Brown DO [address] [place] [id number] PCP - General Internal Medicine 03/16/17 Dank Brown DO [address] [place] [id number] Historical LMR Provider 01/01/17 Zeus Salinas MD [address] [place] [address], [address] [place] [id number] [email or web address] Historical LMR Provider 01/01/17 Juan Mckeon MD [address] [place] [id number] [email or web address] Historical LMR Provider 01/01/17 03/25/21 documented as of this encounter Additional Source Comments The information contained in this document represents components of the legal health record. It is not the complete legal health record.[facility]
--- OUTSIDE RECORDS SUMMARY | 2025-03-03 17:03 | XMS_ITS | Clinical Summary ---
Author Organization [facility] Address [address] [address] Phone Care Team Providers Care School Social Worker Name Role Phone Dank Brown DO Unavailable [phone] Zeus Salinas MD Unavailable [phone] Dank Brown DO Primary Care Provider Allergies Active Allergy Reactions Criticality Noted Date Comments Atorvastatin Calcium 05/01/2022 Other reaction(s): muscle aches Penicillins Rash Low 03/16/2017 Medications docosahexanoic acid/epa (FISH OIL ORAL) Active citalopram (CELEXA) 20 MG tablet Take 20 mg by mouth daily. Active omeprazole (PRILOSEC) 20 mg TbEC Take 20 mg by mouth daily before breakfast. Active gabapentin (NEURONTIN) 300 MG capsule Take 900 mg by mouth daily. Active ibuprofen (ADVIL,MOTRIN) 800 MG tablet Take 800 mg by mouth every 6 (six) hours as needed for pain (specific location in comments). Active oxyCODONE 5 MG immediate release tablet Take 1 tablet (5 mg total) by mouth every 6 (six) hours as needed for severe pain. Partial fill ok 6 tablet 2 Active Additional Information Patient not taking.Reported on 05/21/2022 cetirizine (ZYRTEC) 10 MG tablet 1 tablet. Active YUVAFEM 10 mcg Tab USE 1 TABLET VAGINALLY EVERY SATURDAY, SATURDAY AND Saturday 3 Active LORazepam (ATIVAN) 0.5 MG tablet 1 tablet as needed. 2 Active Active Problems Problem Noted Date Diagnosed Date Disorder of sacrum 09/10/2022 Other chest pain 05/21/2022 Assessment & Plan (05/21/2022 1:26 PM EST): Patient experienced chest pain for few days in March. She does not have any more chest pain we will proceed to a stress test Palpitations 05/21/2022 Assessment & Plan (05/21/2022 1:28 PM EST): Patient experienced palpitation for a few days. We will do a Holter monitor make sure she does not have any SVT or VT Shortness of breath 05/21/2022 Assessment & Plan (05/21/2022 1:27 PM EST): Experience shortness of breath. Clinically there is no evidence of volume overload or heart failure we will check her echocardiography for left ventricular function and valvular heart disease Abnormal electrocardiogram 05/21/2022 Assessment & Plan (05/21/2022 1:28 PM EST): EKG shows sinus rhythm left axis deviation left intrafascicular block and a faster heart block we are going to check the ED Holter monitor for advanced heart block or signs of severe bradycardia Lumbar radiculopathy 2017 Family History Medical History Relation Comments CV disease Mother 2 Cancer Mother 2 Hypertension Mother 2 Relation Status Comments Mother 1 Alive Mother 2 Social History Tobacco Use Types Packs/Day Years Used Date Smoking Tobacco: Former Cigarettes 1.5 24.1 0 11/16/1958 - 12/16/1982 Smokeless Tobacco: Never Tobacco Cessation:Counseling Given: Not Answered Education Answer Date Recorded Are you interested [...] AM EDT Sexual Orientation Not on file Last Filed Vital Signs Vital Sign Reading Time Taken Comments Blood Pressure 154/84 08/15/2022 11:10 AM EDT Pulse 59 05/21/2022 12:54 PM EST Temperature 36.8 C (98.2 F) 06/12/2021 1:32 PM EDT Respiratory Rate 16 06/12/2021 8:27 AM EDT Oxygen Saturation 99% 08/15/2022 10:00 AM EDT Inhaled Oxygen Concentration - - Weight 54.4 kg (120 lb) 05/21/2022 12:54 PM EST Height 160 cm (5' 3 ) 05/21/2022 12:54 PM EST Body Mass Index 21.26 05/21/2022 12:54 PM EST Plan of Treatment Health Maintenance Due Date Last Done Comments DEPRESSION SCREENING 1959 SMOKING Hx and SMOKELESS TOBACCO SCREENING 1960 OSTEOPOROSIS SCREENING INITIAL (ONE-TIME) 2012 RSV VACCINE (1 - 1-dose 75+ series) 2022 LIPID PANEL 02/27/2024 02/26/2019 INFLUENZA VACCINE (#1) 2024 , 12/07/2020, 12/07/2019, Additional history exists COVID-19 VACCINE ( season) 2024 12/18/2021, 07/10/2021, 12/17/2020, Additional history exists Adult Td,Tdap Booster 01/17/2026 01/18/2016 , 08/05/2012, 11/20/2001 HEPATITIS A VACCINES Aged Out 09/06/2016, 02/15/2016, 01/18/2016 No longer eligible based on patient's age to complete this topic PNEUMOCOCCAL VACCINES (50+ years) Completed 12/21/2018, 08/20/2012 ZOSTER VACCINES Completed 12/30/2018, 0810/2018, 08/20/2012 HEPATITIS C SCREENING Completed 11/24/2019 , 11/24/2019, 11/24/2019, Additional history exists HIB VACCINES Aged Out No longer eligi ble based on patient's age to complete this topic MENINGOCOCCAL VACCINES (ACWY) Aged Out No longer eligible based on patient's age to complete this topic MENINGOCOCCAL VACCINES (B) Aged Out N o longer eligible based on patient's age to complete this topic Medical Devices Not on file Procedures Procedure Name Priority Date/Time Associated Diagnosis Comments HEPATITIS C ANTIBODY, QUALITATIVE Routine 11/24/2019 12:02 PM EDT Loss of weight Screening for STDs (sexually transmitted diseases) from Last 3 Months or Most Recently Relevant to Health Maintenance Results * Hepatitis C antibody, qualitative (11/24/2019 12:02 PM EDT) HCV NON-REACTIV E NON-REACTI VE [facility] Blood 11/24/2019 12:0 2 PM EDT 11/24/2019 12:12 PM EDT us Dank Brown DO LAB BLOOD BKR ORDERABLES Fin al Result Performing Organization Address City/State/[facility] Co de Phone Number [address] [address] from Last 3 Months or Most Recently Relevant to Health Maintenance Insurance MEDICARE PART A & B Member Subscriber Plan / Payer (Ef fective 2012-Present) Name:Denisse Garcia Member ID:[id number] Relation to Subscriber:Self Name:Denisse Garcia Subscriber ID:[id number] Payer ID:[id number] Group ID:Not on file Type:Medicare Address: [facility] Rdio [facility] [address] [place] [address] [facility] MEDICARE SUPPLEMENT MEDICARE PART A & B [employer] MEDICARE SUPPLEMENT MEDICARE PART A & B [employer] MEDICARE SUPPLEMENT MEDICARE PART A & B [facility] MEDICARE SUPPLEMENT MEDICARE PART A & B Member Subscriber Plan / Payer (Ef fective 2012-Present) Name:GarciaDenisse ward Member ID:[id number] Relation to Subscriber:Self Name:Denisse Garcia Subscriber ID:[id number] Payer ID:[id number] Group ID:Not on file Type:Medicare Address: [facility] [address] [place] [address] [facility] MEDICARE SUPPLEMENT MEDICARE PART A & B Member Subscriber Plan / Payer ( fective 2012-Present) Name:Denisse Garcia Member ID:[id number] Relation to Subscriber:Self Name:Denisse Garcia Subscriber ID:[id number] Payer ID:[id number] Group ID:Not on file Type:Medicare Address: [facility] [address] [place] [phone] [facility] MEDICARE SUPPLEMENT MEDICARE PART A & B [employer] MEDICARE SUPPLEMENT MEDICARE PART A & B [facility] [employer] MEDICARE SUPPLEMENT MEDICARE PART A & B [facility] MEDICARE SUPPLEMENT [employer] Care Teams School Social Worker Relationship Specialty Start Date End Date Dank Brown DO [address] [place] [address] PCP - General Internal Medicine 03/16/17 Dank Brown DO [address] [place] [address] Historical LMR Provider 01/01/17 Zeus Salinas MD [address] [place] [address] [email or web address] Historical LMR Provider 01/01/17 Additional Source Comments The information contained in this document represents components of the legal health record. It is not the complete legal health record.[facility]
--- OUTSIDE RECORDS SUMMARY | 2025-03-03 17:03 | XMS_ITS | Encounter Summary ---
Author Organization [facility] Address [address] [facility] [address] [place] [address] Phone Care Team Providers Care Decorator Consultant Name Role Phone Dank Brown DO Unavailable Zeus Salinas MD Unavailable Juan Mckeon MD Unavailable Dank Brown DO Primary Care Provider Encounter Details Date Type Department Care Team (Late st Contact Info) Description 03/26/2017 Procedure Pass [facility], [address] [address] Social History Tobacco Use Types Packs/Day Years [...] documented as of this encounter Care Teams Decorator Consultant Relationship Specialty Start Date End Date Dank Brown DO [address] [place] [address] PCP - General Internal Medicine 03/16/17 Dank Brown DO [address] [place] [address] Historical LMR Provider 01/01/17 Zeus Salinas MD [address] [place] [address], [address] [place] [address] [email or web address] Historical LMR Provider 01/01/17 Juan Mckeon MD [address] [place] [address] [email or web address] Historical LMR Provider 01/01/17 03/25/21 documented as of this encounter Additional Source Comments The information contained in this document represents components of the legal health record. It is not the complete legal health record.[facility]
--- OUTSIDE RECORDS SUMMARY | 2025-03-03 17:03 | XMS_ITS | Encounter Summary ---
Author Organization [facility] Address [address] [facility] [address] [place] [address] Phone Care Team Providers Care Forming Yardage Control Operator Name Role Phone Dank Brown DO Unavailable [phone] Zeus Salinas MD Unavailable [phone] Juan Mckeon MD Unavailable Dank Brown DO Primary Care Provider [phone] Reason for Referral * MRI/CAT Scan - Closed Specialty Diagnoses / Procedures Referred By Contac t Referred To Contact Radiology Diagnoses Postlaminectomy syndrome, lumbar region Procedures CT Lumbar Spine Zeus Paredes MD Phone: tel: mailto:[email or web address] Referral ID Status Reason Start Date Expiration Date Visits Re quested Visits Authorized [id number] Closed 03/26/2017 03/26/2018 1 1 * MRI/CAT Scan - Closed Specialty Diagnoses / Procedures Referred By Contac t Referred To Contact Radiology Diagnoses Postlaminectomy syndrome, lumbar region Procedures MRI Lumbar Spine Zeus Paredes MD Phone: tel: mailto:[email or web address] Referral ID Status Reason Start Date Expiration Date Visits Re quested Visits Authorized [id number] Closed 03/26/2017 03/26/2018 1 1 Encounter Details Date Type Department Care Team (Latest Contact Info) Description 03/26/2017 Ancillary Orders Virtual Department [address] [place] [address] Zeus Paredes MD [address] [place] [address] [email or web address] Postlaminectomy syndrome, lumbar region Social History Tobacco Use Types Packs/Day Years [...] documented as of this encounter Results * MRI LUMBAR SPINE (BONE) WITH AND WITHOUT CONTRAST (03/28/2017 12:35 PM EST) Anatomical Region Laterality Modality L-spine Magnetic Resonan ce 03/28/2017 12:2 3 PM EST Impressions 03/28/2017 12:36 PM EST No abnormal marrow signal or enhancement of the lumbar pedicles. Enhancing stable L5-S1 left paracentral disc extrusion. POS - [id number] Narrative 03/28/2017 12:36 PM EST COMPARISON: CT lumbar spine same day and recent non-enhanced MRI lumbar spine 03/16/2017. TECHNIQUE: Exam performed on a 1.5 Gail high-field MRI scanner. Sagittal and axial T1 sequences obtained with and without gadolinium. MRI LUMBAR SPINE FINDINGS: There is no abnormal vertebral body or cord enhancement. There is enhancement of the L5-S1 moderate size left paracentral disc extrusion. Degenerative changes are stable. Procedure Note Connor Rebollar MD - 03/28/2017 COMPARISON: CT lumbar spine same day and recent non-enhanced MRI lumbarspine 03/16/2017. TECHNIQUE: Exam performed on a 1.5 Gail high-field MRI scanner. Sagitt[place] axial T1 sequences obtained with and without gadolinium. MRI LUMBAR SPINE FINDINGS: There is no abnormal vertebral body or cord enhancement. There isenhancement of the L5-S1 moderate size left paracentral disc extrusion.Degenerative changes are stable. IMPRESSION: No abnormal marrow signal or enhancement of the lumbar pedicles.Enhancing stable L5-S1 left paracentral disc extrusion. POS - [id number] Zeus Paredes MD IMG MR XSPECIALTY Final Result * CT LUMBAR SPINE WITHOUT CONTRAST (03/28/2017 11:17 AM EST) Anatomical Region Laterality Modality L-spine Computed Tomogra phy 03/28/2017 11:1 0 AM EST Impressions 03/28/2017 12:49 PM EST 1. Stable multilevel degenerative disc disease as outlined most significant at L5- S1 in which there is a moderate-sized left paracentral disc extrusion compressing the left S1 nerve root. 2. No suspicious lytic or blastic in the imaged lumbar spine pedicles. 3. Stable incompletely imaged right renal cystic mass which may represent a large parapelvic cyst. TOTAL CTDIvol: 16.7 mGy POS - [id number] Narrative 03/28/2017 12:49 PM EST COMPARISON: MRI lumbar spine 03/16/2017. TECHNIQUE: Unenhanced CT lumbar spine from L2-3 to the mid sacrum. Sagittal and coronal reformats generated. Automated exposure control utilized. CT LUMBAR SPINE FINDINGS: Additional findings: Mild calcific plaque throughout the imaged aorta and iliac arteries. No AAA. Incompletely imaged is a large cystic mass arising from the right kidney. This has been present dated back to 2015. This may represent a large parapelvic cyst. Musculoskeletal: No acute fracture. Stable mild grade 1 spondylolisthesis of L4 and L5 due to severe facet arthropathy and minimal retrolisthesis of L2. Stable mild disc space narrowing from L2-3 to L5-S1 with endplate spurring. No compression fracture deformities or spondylolysis. Mild bilateral SI joint osteoarthritis. Small circumscribed lucent lesions within the L4-5 facet joints likely due to degenerative cysts. No destructive lytic or blastic bone lesions. L2-3: Stable disc bulging and mild facet arthropathy. L3-4: Stable disc bulging and mild facet arthropathy. L4-5: Stable disc bulging with severe facet arthropathy and. Moderate bilateral neural foraminal stenosis. No canal stenosis. L5-S1: Stable moderate-sized left paracentral disc extrusion compressing the left S1 nerve root. Stable severe facet arthropathy. Procedure Note Connor Rebollar MD - 03/28/2017 COMPARISON: MRI lumbar spine 03/16/2017. TECHNIQUE: Unenhanced CT lumbar spine from L2-3 to the mid sacrum.Sagittal and coronal reformats generated. Automated exposure controlutilized. CT LUMBAR SPINE FINDINGS: Additional findings: Mild calcific plaque throughout the imaged aorta andiliac arteries. No AAA. Incompletely imaged is a large cystic massarising from the right kidney. This has been present dated back to 2015.This may represent a large parapelvic cyst. Musculoskeletal: No acute fracture. Stable mild grade 1 spondylolisthesisof L4 and L5 due to severe facet arthropathy and minimal retrolisthesis ofL2. Stable mild disc space narrowing from L2-3 to L5-S1 with endplatespurring. No compression fracture deformities or spondylolysis. Mildbilateral SI joint osteoarthritis. Small circumscribed lucent lesionswithin the L4-5 facet joints likely due to degenerative cysts. Nodestructive lytic or blastic bone lesions. L2-3: Stable disc bulging and mild facet arthropathy. L3-4: Stable disc bulging and mild facet arthropathy. L4-5: Stable disc bulging with severe facet arthropathy and. Moderatebilateral neural foraminal stenosis. No canal stenosis. L5-S1: Stable moderate-sized left paracentral disc extrusion compressingthe left S1 nerve root. Stable severe facet arthropathy. IMPRESSION: 1. Stable multilevel degenerative disc disease as outlined mostsignificant at L5-S1 in which there is a moderate-sized left paracentraldisc extrusion compressing the left S1 nerve root. 2. No suspicious lytic or blastic in the imaged lumbar spine pedicles. 3. Stable incompletely imaged right renal cystic mass which may representa large parapelvic cyst. TOTAL CTDIvol: 16.7 mGy POS - [id number] Zeus Paredes MD IMG CT XSPECIALTY ORDER NAYAN Final Result documented in this encounter Visit Diagnoses Diagnosis Postlaminectomy syndrome, lumbar region Postlaminectomy syndrome, lumbar region Postlaminectomy syndrome, lumbar region documented in this encounter Additional Health Concerns Infection Onset Date Last Indicated Resolved Time CoV-Risk 06/12/2021 06/12/2021 06/23/2021 1:21 AM EDT documented as of this encounter Care Teams Forming Yardage Control Operator Relationship Specialty Start Date End Date Dank Brown DO [address] [place] [address] PCP - General Internal Medicine 03/16/17 Dank Brown DO [address] [place] [address] Historical LMR Provider 01/01/17 Zeus Salinas MD [address] [place] [address], [address] [place] [address] [email or web address] Historical LMR Provider 01/01/17 Juan Mckeon MD [address] [place] [address] [email or web address] Historical LMR Provider 01/01/17 03/25/21 documented as of this encounter Additional Source Comments The information contained in this document represents components of the legal health record. It is not the complete legal health record.[facility]
--- OUTSIDE RECORDS SUMMARY | 2025-03-03 17:03 | XMS_ITS | Encounter Summary ---
Author Organization [facility] Address [address] [address] Phone Care Team Providers Care Lathe Set Up Operator Name Role Phone Dank Brown DO Unavailable [phone] Zeus Salinas MD Unavailable [phone] Juan Mckeon MD Unavailable Unknown, Unknown Primary Care Provider Dank Carey DO Primary Care Provider [phone] Encounter Details Date Type Department Care Team (Late st Contact Info) Description 03/14/2017 Procedure Pass [facility], [address] [address] Social History Tobacco Use Types Packs/Day Years Used Date Smoking Tobacco: Never Assessed Comments No Sex and Gender Information Value Date Recorded Sex Assigned at Female 06/12/2021 8:29 AM EDT Legal Sex Female 10:06 PM EDT Gender Identity Female 06/12/2021 8:29 AM EDT Sexual Orientation Not on file documented as of this encounter Last Filed Vital Signs Vital Sign Reading Time Taken Comments Blood Pressure - - Pulse - - Temperature - - Respiratory Rate - - Oxygen Saturation - - Inhaled Oxygen Concentration - - Weight 59.4 kg (131 lb) 03/15/2017 9:13 AM EST Height 160 cm (5' 3 ) 03/15/2017 9:13 AM EST Body Mass Index 23.21 03/15/2017 9:13 AM EST documented in this encounter Plan of Treatment Not on file documented as of this encounter Visit Diagnoses Not on filedocumented in this encounter Additional Health Concerns Infection Onset Date Last Indicated Resolved Time CoV-Risk 06/12/2021 06/12/2021 06/23/2021 1:21 AM EDT documented as of this encounter Care Teams Lathe Set Up Operator Relationship Specialty Start Date End Date Unknown, Unknown, [address] [facility], [address] [place] [address] PCP - General 03/05/17 03/15/17 Dank Brown DO [address] [place] [address] PCP - General Internal Medicine 03/16/17 Dank Brown DO [address] [place] [address] Historical LMR Provider 01/01/17 Zeus Salinas MD [address] [place] [address], [address] [place] [address] Historical LMR Provider 01/01/17 Juan Mckeon MD [address] [place] [address], [address] [address] Historical LMR Provider 01/01/17 03/25/21 documented as of this encounter Additional Source Comments The information contained in this document represents components of the legal health record. It is not the complete legal health record.[facility]
--- OUTSIDE RECORDS SUMMARY | 2025-03-03 17:03 | XMS_ITS | Clinical Summary ---
Author Organization [facility] Address [address] [place] [address] Phone Care Team Providers Care County Judge Name Role Phone Kevin Dank Primary Care Provider [phone] Family History Medical History Relation Name Comments [...] Orientation Straight 03/20/2024 10 :34 AM EST Last Filed Vital Signs Vital Sign Reading Time Taken Comments Blood Pressure - - Pulse - - Temperature - - Respiratory Rate - - Oxygen Saturation - - Inhaled Oxygen Concentration - - Weight 54.9 kg (121 lb) 03/27/2024 1:05 PM EST Height 160 cm (5' 3 ) 03/27/2024 1:05 PM EST Body Mass Index 21.43 03/27/2024 1:05 PM EST Plan of Treatment Upcoming Encounters Date Type Department Care Team (Late st Contact Info) Description 03/30/2025 1:15 PM EST Appointment [facility] [address] [address] Health Maintenance Due Date Last Done Comments Cholesterol Screening (Lipid Panel) 02/18/2022 Falls Risk Assessment 02/18/2022 Medicare Annual Wellness Visit 02/18/2022 Osteoporosis Screening (Bone Density Screening) 02/18/2022 Social Influencers of Health Screening 02/18/2022 Depression Screening 03/18/2024 COVID-19 Vaccine ( season) 2024 11/26/2023, 12/18/2021, 07/10/2021, Additional history exists Influenza Vaccine (#1) 2024 , 02/04/2023, 12/18/2021, Additional history exists DTaP,Tdap,and Td [...] Signed Date: 03/27/2024 14:55 ET Workstation ID: [id number] Transcribed By: Self Edit Transcribed Date: 03/27/2024 14:50 ET Narrative 03/27/2024 2:55 PM EST EXAM: SCREENING MAMMOGRAPHY, BILATERAL HISTORY: SCREENING. Family history of breast cancer-mother age 97, sister age 50 COMPARISON: 03/12/2023, 03/07/2022, 02/28/2021 TECHNIQUE: Synthesized CC and MLO projections of each breast. Tomosynthesis of each breast in the CC and MLO projections. ADDITIONAL IMAGING: None Computer-aided detection was employed with the [employer] 3-D. TISSUE DENSITY: The breasts are heterogeneously [...] Signed Date: 03/27/2024 14:55 ET Workstation ID: [id number] Transcribed By: Self Edit Transcribed Date: 03/27/2024 14:50 ET us Self Referral Sppl IMG BI PROCEDURES Final Resul t from Last 3 Months or Most Recently Relevant to Health Maintenance [place] [phone] MEDICARE [facility] Care Teams County Judge Relationship Specialty Start Date End Date Dank Brown DO [address] [place] [id number] PCP - General Internal Medicine 03/20/24
--- OUTSIDE RECORDS SUMMARY | 2025-03-03 17:03 | XMS_ITS | Encounter Summary ---
Author Organization [facility] Address [address] [facility] [address] [place] [address] Phone Care Team Providers Care Migration Agent Name Role Phone Dank Brown DO Unavailable [phone] Zeus Salinas MD Unavailable [phone] Dank Brown DO Primary Care Provider Encounter Details Date Type Department Care Team (Late st Contact Info) Description 06/12/2021 Procedure Pass [facility], Ct Scan - [facility] [address] [place] [address] Social History Tobacco Use Types Packs/Day Years Used Date Smoking Tobacco: Former Cigarettes 1.5 24.1 0 11/16/1958 - 12/16/1982 Smokeless Tobacco: Never Comments No Sex and Gender Information Value Date Recorded Sex Assigned at Female 06/12/2021 8:29 AM EDT Legal Sex Female 10:06 PM EDT Gender Identity Female 06/12/2021 8:29 AM EDT Sexual Orientation Not on file documented as of this encounter Functional Status * Calculated C-SSRS Risk Score (Lifetime/Recent) Answer Date of Assessment Author No Risk Indicated 06/12/2021 8:28 AM EDT Filomena Quesada RN * [place] Suicide Severity Rating Scale (Screener/Recent Self-Report) Question Answer Date of Assessment Author 1. Wish to be (Past 1 Month) No 022 8:28 AM EDT Filomena Quesada, [place] 2. Non-Specific Active Suici jarad Thoughts (Past 1 Month) No 06/12/2021 8:28 AM EDT Filomena Quesada RN 6. Suicidal Behavior (Lifetime) No 8:28 AM EDT Filomena Quesada RN documented as of this encounter Plan of Treatment Not on file documented as of this encounter Visit Diagnoses Not on filedocumented in this encounter Additional Health Concerns Infection Onset Date Last Indicated Resolved Time CoV-Risk 06/12/2021 06/12/2021 06/23/2021 1:21 AM EDT documented as of this encounter Care Teams Migration Agent Relationship Specialty Start Date End Date Dank Brown DO [address] [place] [address] PCP - General Internal Medicine 03/16/17 Dank Brown DO [address] [place] [address] Historical LMR Provider 01/01/17 Zeus Salinas MD [address] [place] [address], [address] [place] [address] [email or web address] Historical LMR Provider 01/01/17 documented as of this encounter Additional Source Comments The information contained in this document represents components of the legal health record. It is not the complete legal health record.[facility]
--- OUTSIDE RECORDS SUMMARY | 2025-03-03 17:03 | XMS_ITS | Encounter Summary ---
Author Organization [facility] Address [address] [facility] [address] [place] [address] Phone Care Team Providers Care Show Host/Hostess Name Role Phone Dank Brown DO Unavailable Zeus Salinas MD Unavailable Dank Brown DO Primary Care Provider Encounter Details Date Type Department Care Team (Late st Contact Info) Description 05/21/2022 Procedure Pass [facility] [address] [place] [address] Social History Tobacco Use Types Packs/Day Years [...] Diagnoses Not on filedocumented in this encounter Care Teams Show Host/Hostess Relationship Specialty Start Date End Date Dank Brown DO [address] [place] [address] PCP - General Internal Medicine 03/16/17 Dank Brown DO [address] [place] [address] Historical LMR Provider 01/01/17 Zeus Salinas MD [address] [place] [address], [address] [place] [address] [email or web address] Historical LMR Provider 01/01/17 documented as of this encounter Additional Source Comments The information contained in this document represents components of the legal health record. It is not the complete legal health record.[facility]
--- OUTSIDE RECORDS SUMMARY | 2025-03-03 17:03 | XMS_ITS | Encounter Summary ---
Author Organization [facility] Address [address] [facility] [address] [place] [address] Phone Care Team Providers Care Customer Service Sales Consultant Name Role Phone Dank Brown DO Unavailable [phone] Zeus Salinas MD Unavailable Dank Brown DO Primary Care Provider [phone] Reason for Referral * MRI/CAT Scan - Closed Specialty Diagnoses / Procedures Referred By Milo conner Referred To Contact Radiology Diagnoses Other chest pain Procedures NC Myocardial Perfusion Exercise Multiple NC Myocardial Perfusion Pharmacologic Stress Multiple Demarcus Solis MD, PhD Phone: tel: fax: mailto:[email or web address] Referral ID Status Reason Start Date Expiration Date Visits Re quested Visits Authorized [id number] Closed 05/21/2022 05/21/2023 1 1 Encounter Details Date Type Department Care Team (Latest Contact Info) Description 08/15/2022 Ancillary Orders [facility] [address], [address] [place] [address] Demarcus Solis MD, PhD [address] [place] [address] [email or web address] Other chest pain Social History Tobacco [...] Perfusion Imaging after exercise utilizing a standard Dylan protocol with gated SPECT. PROTOCOL USED: One day rest- stress protocol in the supine and prone position. Images were obtained in gated tomographic technique. Images were processed in SPECT format, reconstructed tomographically and compared [id number] in short axis, horizontal long axis and [...] Ace exercised for 7:14 min on a DYLAN protocol achieving 10.10 METS. Test terminated due [...] stress report for full details. Aj Gómez NP . Perfusion Comments Stress LV cavity volume [...] left ventricular systolic function. us Demarcus Solis MD, PhD CV NM CARDIAC Fin al Result documented in this encounter Visit Diagnoses Diagnosis Other chest pain- Primary Other chest pain documented in this encounter Care Teams Customer Service Sales Consultant Relationship Specialty Start Date End Date Dank Brown DO [address] [place] [address] PCP - General Internal Medicine 03/16/17 Dank Brown DO [address] [place] [address] Historical LMR Provider 01/01/17 Zeus Salinas MD [address] [place] [address], 2nd [place] [address] [email or web address] Historical LMR Provider 01/01/17 documented as of this encounter Additional Source Comments The information contained in this document represents components of the legal health record. It is not the complete legal health record.[facility]
== END 2025-03-03 13:33 | disposition home or self-care (01) ==
LOC: HO.HMCSH 12:57
PROVIDERS: PCP Internal Medicine; Visit Provider Physician Assistant Medical
DX: I10 Essential (primary) hypertension (principal); R05.3 Chronic cough; M85.80 Other specified disorders of bone density and structure, unspecified site; E04.1 Nontoxic single thyroid nodule; Z00.00 Encounter for general adult medical examination without abnormal findings; Z23 Encounter for immunization

== ENCOUNTER → 2025-03-03 12:57 | Outpatient (BNVA) | payer MEDICARE, OTHER, SELFPAY | PROVIDERS: PCP Internal Medicine; Visit Provider Physician Assistant Medical | DX: I10 Essential (primary) hypertension (principal); R05.3 Chronic cough; M85.80 Other specified disorders of bone density and structure, unspecified site; E04.1 Nontoxic single thyroid nodule; Z13.31 Encounter for screening for depression | CPT/HCPCS: 90471; 96127; 99212 ==

== ENCOUNTER 2025-03-16 15:05 | Outpatient (REF) | payer MEDICARE, OTHER, SELFPAY ==
[2025-03-16 16:31] LABS: Anion Gap 12 (12-20); Blood Urea Nitrogen 17 mg/dL (9-16); Calcium 9.0 mg/dL (8.4-10.2); Carbon Dioxide 27 mmol/L (22-29); Chloride 104 mmol/L (96-108); Estimated Glomerular Filt Rate > 60; Potassium 4.1 mmol/L (3.3-5.1); Sodium 139 mmol/L (135-145)
--- OUTSIDE RECORDS SUMMARY | 2025-03-16 18:36 | XMS_ITS | Clinical Summary ---
Author Organization [facility] Address [address] [address] Phone Care Team Providers Care Mental Health Director Name Role Phone Dank Brown DO Unavailable [phone] Zeus Salinas MD Unavailable Dank Brown DO Primary Care Provider Allergies [...] PM EDT) HCV NON-REACTIV E NON-REACTI VE [facility] Blood 11/24/2019 12:0 2 PM EDT 11/24/2019 12:12 PM EDT us Dank Brown DO LAB BLOOD BKR ORDERABLES Fin al Result Performing Organization Address City/State/[facility] Co de Phone Number [address] [address] from Last 3 Months or Most Recently Relevant to Health Maintenance Insurance MEDIC[facility] PART A & [facility] SUPPLEMENT MEDICARE PART A & B [employer] MEDICARE SUPPLEMENT MEDICARE PART A & B [employer] MEDICARE SUPPLEMENT MEDICARE PART A & B [facility] MEDICARE SUPPLEMENT MEDICARE PART A & B [facility] MEDICARE SUPPLEMENT MEDICARE PART A & B [facility] MEDICARE SUPPLEMENT MEDICARE PART A & B [employer] MEDICARE SUPPLEMENT MEDICARE PART A & B [email or web address] MEDICARE SUPPLEMENT MEDICARE PART A & B [facility] EXTENSION MEDICARE SUPPLEMENT [employer] Care Teams Mental Health Director Relationship Specialty Start Date End Date Dank Brown DO [address] [place] [address] PCP - General Internal Medicine 03/16/17 Dank Brown DO [address] [place] [address] Historical LMR Provider 01/01/17 Zeus Salinas MD [address] [place] [address] [email or web address] Historical LMR Provider 01/01/17 Additional Source Comments The information contained in this document represents components of the legal health record. It is not the complete legal health record.[facility]
--- OUTSIDE RECORDS SUMMARY | 2025-03-16 18:36 | XMS_ITS | Clinical Summary ---
Author Organization [facility] Address [address] [place] [address] Phone Care Team Providers Care Drink Box Mechanic Name Role Phone Kevin Dank Primary Care Provider [phone] Family History Medical History Relation Name Comments [...] PM EST [facility]ointment [facility] [address] [address] Health Maintenance Due Date Last [...] Signed Date: 03/27/2024 14:55 ET Workstation ID: [id number] Transcribed By: Self Edit Transcribed Date: 03/27/2024 14:50 ET Narrative 03/27/2024 2:55 PM EST EXAM: SCREENING MAMMOGRAPHY, BILATERAL HISTORY: SCREENING. Family history of breast cancer-mother age 97, sister age 50 COMPARISON: 03/12/2023, 03/07/2022, 02/28/2021 TECHNIQUE: Synthesized CC and MLO projections of each breast. Tomosynthesis of each breast in the CC and MLO projections. ADDITIONAL IMAGING: None Computer-aided detection was employed with the [employer] 3-D. TISSUE DENSITY: The breasts are heterogeneously [...] Signed Date: 03/27/2024 14:55 ET Workstation ID: [id number] Transcribed By: Self Edit Transcribed Date: 03/27/2024 14:50 ET us Self Referral Sppl IMG BI PROCEDURES Final Resul t from Last 3 Months or Most Recently Relevant to Health Maintenance [place] [id number] MEDICARE [facility] Care Teams Drink Box Mechanic Relationship Specialty Start Date End Date Dank Brown DO [address] [place] [phone] PCP - General Internal Medicine 03/20/24
--- OUTSIDE RECORDS SUMMARY | 2025-03-16 18:36 | XMS_ITS | Encounter Summary ---
Author Organization [facility] Address [address] [facility] [address] [place] [address] Phone Care Team Providers Care Stone Sandblaster Name Role Phone Dank Brown DO Unavailable Zeus Salinas MD Unavailable Dank Brown DO Primary Care Provider [phone] Reason for Referral * MRI/CAT Scan - Closed Specialty Diagnoses / Procedures Referred By Milo conner Referred To Contact Radiology Diagnoses Other chest pain Procedures NC Myocardial Perfusion Exercise Multiple NC Myocardial Perfusion Pharmacologic Stress Multiple Demarcus Solis MD, PhD Phone: tel: fax: mailto:[email or web address] Referral ID Status Reason Start Date Expiration Date Visits Re quested Visits Authorized [id number] Closed 05/21/2022 05/21/2023 1 1 Encounter Details Date Type Department Care Team (Latest Contact Info) Description 08/15/2022 Ancillary Orders [facility] [address], [address] [place] [address] Demarcus Solis MD, PhD [address] [place] [address] [email or web address] Other chest pain Social History Tobacco [...] in SPECT format, reconstructed tomographically and compared [id number] in short axis, horizontal long axis and [...] pain documented in this encounter Care Teams Stone Sandblaster Relationship Specialty Start Date End Date Dank Brown DO [address] [place] [address] PCP - General Internal Medicine 03/16/17 Dank Brown DO [address] [place] [address] Historical LMR Provider 01/01/17 Zeus Salinas MD [address] [place] [address], 2nd [place] [address] [email or web address] Historical LMR Provider 01/01/17 documented as of this encounter Additional Source Comments The information contained in this document represents components of the legal health record. It is not the complete legal health record.[facility]
--- OUTSIDE RECORDS SUMMARY | 2025-03-16 18:36 | XMS_ITS | Encounter Summary ---
Author Organization [facility] Address [address] [facility] [address] [place] [address] Phone Care Team Providers Care Svp Chief Marketing Officer Name Role Phone Dank Brown DO Unavailable Zeus Salinas MD Unavailable Dank Brown DO Primary Care Provider Encounter Details Date Type Department Care Team (Late st Contact Info) Description 06/12/2021 Procedure Pass [facility], Ct Scan - [address] [address] Social History Tobacco Use Types Packs/Day Years [...] documented as of this encounter Care Teams Svp Chief Marketing Officer Relationship Specialty Start Date End Date Dank Brown DO [address] [place] [address] PCP - General Internal Medicine 03/16/17 Dank Brown DO [address] [place] [address] Historical LMR Provider 01/01/17 Zeus Salinas MD [address] [place] [address], [address] [place] [address] Historical LMR Provider 01/01/17 documented as of this encounter Additional Source Comments The information contained in this document represents components of the legal health record. It is not the complete legal health record.[facility]
--- OUTSIDE RECORDS SUMMARY | 2025-03-16 18:36 | XMS_ITS | Encounter Summary ---
Author Organization [facility] Address [address] [facility] [address] [place] [address] Phone Care Team Providers Care Shell Plater Name Role Phone Dank Brown DO Unavailable Zeus Salinas MD Unavailable Juan Mckeon MD Unavailable Dank Brown DO Primary Care Provider Encounter Details Date Type Department Care Team (Late st Contact Info) Description 03/26/2017 Procedure Pass [facility], Ct Scan - [address] [address] Social History Tobacco Use Types Packs/Day Years [...] documented as of this encounter Care Teams Shell Plater Relationship Specialty Start Date End Date Dank Brown DO [address] [place] [address] PCP - General Internal Medicine 03/16/17 Dank Brown DO [address] [place] [address] Historical LMR Provider 01/01/17 Zeus Salinas MD [address] [place] [address], [address] [place] [address] [email or web address] Historical LMR Provider 01/01/17 Juan Mckeon MD [address] [place] [address] [email or web address] Historical LMR Provider 01/01/17 03/25/21 documented as of this encounter Additional Source Comments The information contained in this document represents components of the legal health record. It is not the complete legal health record.[facility]
--- OUTSIDE RECORDS SUMMARY | 2025-03-16 18:36 | XMS_ITS | Encounter Summary ---
Author Organization [facility] Address [address] [facility] [address] [place] [address] Phone Care Team Providers Care Tube Tester Name Role Phone Dank Brown DO Unavailable [phone] Zeus Salinas MD Unavailable [phone] Dank Brown DO Primary Care Provider Encounter Details Date Type Department Care Team (Late st Contact Info) Description 05/21/2022 Procedure Pass [facility] [address] [place] [address] Social History Tobacco Use Types Packs/Day Years [...] on filedocumented in this encounter Care Teams Tube Tester Relationship Specialty Start Date End Date Dank Brown DO [address] [place] [address] PCP - General Internal Medicine 03/16/17 Dank Brown DO [address] [place] [address] Historical LMR Provider 01/01/17 Zeus Salinas MD [address] [place] [address], [address] [place] [address] [email or web address] Historical LMR Provider 01/01/17 documented as of this encounter Additional Source Comments The information contained in this document represents components of the legal health record. It is not the complete legal health record.[facility]
--- OUTSIDE RECORDS SUMMARY | 2025-03-16 18:36 | XMS_ITS | Encounter Summary ---
Author Organization [facility] Address [address] [address] Phone Care Team Providers Care Cylinder Machine Operator Pulp Drier Name Role Phone Dank Brown DO Unavailable [phone] Zeus Salinas MD Unavailable [phone] Juan Mckeon MD Unavailable Unknown, Unknown Primary Care Provider Dank Carey DO Primary Care Provider [phone] Encounter Details Date Type Department Care Team (Late st Contact Info) Description 03/14/2017 Procedure Pass [facility], [address] [address] Social History Tobacco Use Types Packs/Day Years [...] documented as of this encounter Care Teams Cylinder Machine Operator Pulp Drier Relationship Specialty Start Date End Date Unknown, Unknown, [address] [facility], [address] [place] [address] PCP - General 03/05/17 03/15/17 Dank Brown DO [address] [place] [address] PCP - General Internal Medicine 03/16/17 Dank Brown DO [address] [place] [address] Historical LMR Provider 01/01/17 Zeus Salinas MD [address] [place] [address], 2nd [place] [address] Historical LMR Provider 01/01/17 Juan Mckeon MD [address] [place] [address], [address] [address] Historical LMR Provider 01/01/17 03/25/21 documented as of this encounter Additional Source Comments The information contained in this document represents components of the legal health record. It is not the complete legal health record.[facility]
--- OUTSIDE RECORDS SUMMARY | 2025-03-16 18:36 | XMS_ITS | Encounter Summary ---
Author Organization [facility] Address [address] [facility] [address] [place] [address] Phone Care Team Providers Care Roof Fixer Name Role Phone Dank Brown DO Unavailable [phone] Zeus Salinas MD Unavailable [phone] Juan Mckeon MD Unavailable Dank Brown DO Primary Care Provider [phone] Reason for Referral * MRI/CAT Scan - Closed Specialty Diagnoses / Procedures Referred By Contac t Referred To Contact Radiology Diagnoses Postlaminectomy syndrome, lumbar region Procedures CT Lumbar Spine Zeus Paredes MD Phone: tel: mailto:[email or web address] Referral ID Status Reason Start Date Expiration Date Visits Re quested Visits Authorized [id number] Closed 03/26/2017 03/26/2018 1 1 * MRI/CAT Scan - Closed Specialty Diagnoses / Procedures Referred By Contac t Referred To Contact Radiology Diagnoses Postlaminectomy syndrome, lumbar region Procedures MRI Lumbar Spine Zeus Paredes MD Phone: tel: mailto:[email or web address] Referral ID Status Reason Start Date Expiration Date Visits Re quested Visits Authorized [id number] Closed 03/26/2017 03/26/2018 1 1 Encounter Details Date Type Department Care Team (Latest Contact Info) Description 03/26/2017 Ancillary Orders Virtual Department [address] [place] [address] Zeus Paredes MD [address] [place] [address] [email or web address] Postlaminectomy syndrome, lumbar region [...] documented as of this encounter Care Teams Roof Fixer Relationship Specialty Start Date End Date Dank Brown DO [address] [place] [address] PCP - General Internal Medicine 03/16/17 Dank Brown DO [address] [place] [address] Historical LMR Provider 01/01/17 Zeus Salinas MD [address] [place] [address], 2[address] [place] [address] [email or web address] Historical LMR Provider 01/01/17 Juan Mckeon MD [address] [place] [address] [email or web address] Historical LMR Provider 01/01/17 03/25/21 documented as of this encounter Additional Source Comments The information contained in this document represents components of the legal health record. It is not the complete legal health record.[facility]
--- OUTSIDE RECORDS SUMMARY | 2025-03-16 18:36 | XMS_ITS | Encounter Summary ---
Author Organization [facility] Address [address] [facility] [address] [place] [address] Phone Care Team Providers Care Motor Expert Name Role Phone Dank Brown DO Unavailable [phone] Zeus Salinas MD Unavailable Juan Mckeon MD Unavailable Dank Brown DO Primary Care Provider Encounter Details Date Type Department Care Team (Late st Contact Info) Description 03/26/2017 Procedure Pass [facility], [address] [address] Social History Tobacco Use Types Packs/Day Years [...] documented as of this encounter Care Teams Motor Expert Relationship Specialty Start Date End Date Dank Brown DO [address] [place] [address] PCP - General Internal Medicine 03/16/17 Dank Brown DO [address] [place] [address] Historical LMR Provider 01/01/17 Zeus Salinas MD [address] [place] [address], 2nd [place] [address] [email or web address] Historical LMR Provider 01/01/17 Juan Mckeon MD [address] [place] [address] [email or web address] Historical LMR Provider 01/01/17 03/25/21 documented as of this encounter Additional Source Comments The information contained in this document represents components of the legal health record. It is not the complete legal health record.[facility]
== END 2025-03-16 15:06 | disposition home or self-care (01) ==
LOC: HO.LAB 15:05
PROVIDERS: PCP Internal Medicine; Visit Provider Physician Assistant Medical
DX: Z00.00 Encounter for general adult medical examination without abnormal findings (principal)
CPT/HCPCS: 36415; 80048